=== PATIENT | female | born 1955 | race Caucasian/White ===

== ENCOUNTER → 2020-03-03 14:07 | Outpatient (BNVA) | payer OTHER, SELFPAY | PROVIDERS: PCP Internal Medicine; Referring Provider Internal Medicine; Visit Provider Internal Medicine | DX: I26.99 Other pulmonary embolism without acute cor pulmonale (principal); I82.502 Chronic embolism and thrombosis of unspecified deep veins of left lower extremity; Z51.81 Encounter for therapeutic drug level monitoring; Z79.01 Long term (current) use of anticoagulants | CPT/HCPCS: 93793 ==

== ENCOUNTER → 2020-03-10 12:14 | Outpatient (BNVA) | payer OTHER, SELFPAY | PROVIDERS: PCP Internal Medicine; Visit Provider Internal Medicine | DX: I26.99 Other pulmonary embolism without acute cor pulmonale (principal); I82.502 Chronic embolism and thrombosis of unspecified deep veins of left lower extremity; Z51.81 Encounter for therapeutic drug level monitoring; Z79.01 Long term (current) use of anticoagulants | CPT/HCPCS: Q3014 ==

== ENCOUNTER → 2020-04-07 16:51 | Outpatient (BNVA) | payer OTHER, SELFPAY | PROVIDERS: PCP Internal Medicine; Visit Provider Internal Medicine | DX: I26.99 Other pulmonary embolism without acute cor pulmonale (principal); I82.502 Chronic embolism and thrombosis of unspecified deep veins of left lower extremity; Z51.81 Encounter for therapeutic drug level monitoring; Z79.01 Long term (current) use of anticoagulants | CPT/HCPCS: Q3014 ==

== ENCOUNTER → 2020-04-14 15:29 | Outpatient (BNVA) | payer OTHER, SELFPAY | PROVIDERS: PCP Internal Medicine; Visit Provider Internal Medicine | DX: I26.99 Other pulmonary embolism without acute cor pulmonale (principal); I82.502 Chronic embolism and thrombosis of unspecified deep veins of left lower extremity; Z51.81 Encounter for therapeutic drug level monitoring; Z79.01 Long term (current) use of anticoagulants | CPT/HCPCS: 85610; 99211 ==

== ENCOUNTER → 2020-04-21 14:12 | Outpatient (BNVA) | payer OTHER, SELFPAY | PROVIDERS: PCP Internal Medicine; Visit Provider Internal Medicine | DX: Z76.89 Persons encountering health services in other specified circumstances (principal) ==

== ENCOUNTER → 2020-05-02 14:48 | Outpatient (BNVA) | payer OTHER, SELFPAY | PROVIDERS: PCP Internal Medicine; Visit Provider Internal Medicine | DX: Z76.89 Persons encountering health services in other specified circumstances (principal) ==

== ENCOUNTER 2020-05-03 10:12 | Outpatient (REF) | payer OTHER, SELFPAY ==
[2020-05-03 11:22] LABS: Cholesterol 196 mg/dL; HDL Cholesterol 100 mg/dL; LDL Cholesterol Calculated 77 mg/dl; Triglycerides 97 mg/dL
[2020-05-03 14:34] LABS: Alanine Aminotransferase 13 U/L (0-31); Alkaline Phosphatase 100 U/L (39-117); Anion Gap 13 (12-20); Aspartate Amino Transferase 20 U/L (5-31); Bilirubin Total 0.5 mg/dL (0.0-1.0); Blood Urea Nitrogen 9 mg/dL (9-16); Carbon Dioxide 30 mmol/L (22-29); Chloride 106 mmol/L (96-108); Estimated Glomerular Filt Rate > 60; Glucose Fasting 91 mg/dL (60-99); Potassium 5.6 mmol/l (3.3-5.1); Sodium 143 mmol/L (135-145); Total Protein 6.8 g/dL (6.5-8.0)
[2020-05-03 14:54] LABS: TSH reflex Free T4 1.61 mIU/mL (0.32-4.0)
== END 2020-05-03 10:13 | disposition home or self-care (01) ==
LOC: HO.LAB 10:12
PROVIDERS: PCP Internal Medicine; Visit Provider Internal Medicine
DX: E78.2 Mixed hyperlipidemia (principal); E66.9 Obesity, unspecified; I35.0 Nonrheumatic aortic (valve) stenosis; I50.9 Heart failure, unspecified; Z86.73 Personal history of transient ischemic attack (TIA), and cerebral infarction without residual deficits
CPT/HCPCS: 80053; 80061; 84443

== ENCOUNTER → 2020-05-05 14:47 | Outpatient (BNVA) | payer OTHER, SELFPAY | PROVIDERS: PCP Internal Medicine; Visit Provider Internal Medicine | DX: Z76.89 Persons encountering health services in other specified circumstances (principal) ==

== ENCOUNTER → 2020-05-12 13:52 | Outpatient (BNVA) | payer OTHER, SELFPAY | PROVIDERS: PCP Internal Medicine; Visit Provider Internal Medicine | DX: I48.20 Chronic atrial fibrillation, unspecified (principal); Z51.81 Encounter for therapeutic drug level monitoring; Z79.01 Long term (current) use of anticoagulants | CPT/HCPCS: 99211 ==

== ENCOUNTER → 2020-05-19 13:37 | Outpatient (BNVA) | payer OTHER, SELFPAY | PROVIDERS: PCP Internal Medicine; Visit Provider Internal Medicine | DX: I26.99 Other pulmonary embolism without acute cor pulmonale (principal); I82.502 Chronic embolism and thrombosis of unspecified deep veins of left lower extremity; Z51.81 Encounter for therapeutic drug level monitoring; Z79.01 Long term (current) use of anticoagulants | CPT/HCPCS: 99211 ==

== ENCOUNTER → 2020-05-26 11:38 | Outpatient (BNVA) | payer OTHER, SELFPAY | PROVIDERS: PCP Internal Medicine; Visit Provider Internal Medicine | DX: Z76.89 Persons encountering health services in other specified circumstances (principal) ==

== ENCOUNTER → 2020-05-31 14:33 | Outpatient (BNVA) | payer OTHER, SELFPAY | PROVIDERS: PCP Internal Medicine; Visit Provider Internal Medicine | DX: Z95.3 Presence of xenogenic heart valve (principal); D68.2 Hereditary deficiency of other clotting factors; I05.9 Rheumatic mitral valve disease, unspecified; E66.9 Obesity, unspecified; Z68.36 Body mass index [BMI] 36.0-36.9, adult; F17.200 Nicotine dependence, unspecified, uncomplicated; Z86.73 Personal history of transient ischemic attack (TIA), and cerebral infarction without residual deficits; Z79.01 Long term (current) use of anticoagulants | CPT/HCPCS: 93005 ==

== ENCOUNTER → 2020-06-02 15:03 | Outpatient (BNVA) | payer OTHER, SELFPAY | PROVIDERS: PCP Internal Medicine; Visit Provider Internal Medicine | DX: Z76.89 Persons encountering health services in other specified circumstances (principal) ==

== ENCOUNTER → 2020-06-15 15:28 | Outpatient (BNVA) | payer OTHER, SELFPAY | PROVIDERS: PCP Internal Medicine; Visit Provider Internal Medicine | DX: Z76.89 Persons encountering health services in other specified circumstances (principal) ==

== ENCOUNTER → 2020-06-23 11:34 | Outpatient (BNVA) | payer OTHER, SELFPAY | PROVIDERS: PCP Internal Medicine; Visit Provider Internal Medicine ==

== ENCOUNTER → 2020-06-30 10:38 | Outpatient (BNVA) | payer OTHER, SELFPAY | PROVIDERS: PCP Internal Medicine; Visit Provider Internal Medicine ==

== ENCOUNTER → 2020-07-07 12:02 | Outpatient (BNVA) | payer OTHER, SELFPAY | PROVIDERS: PCP Internal Medicine; Visit Provider Internal Medicine ==

== ENCOUNTER → 2020-07-14 14:45 | Outpatient (BNVA) | payer OTHER, SELFPAY | PROVIDERS: PCP Internal Medicine; Visit Provider Internal Medicine ==

== ENCOUNTER → 2020-07-21 12:13 | Outpatient (BNVA) | payer OTHER, SELFPAY | PROVIDERS: PCP Internal Medicine; Visit Provider Internal Medicine ==

== ENCOUNTER → 2020-07-28 13:43 | Outpatient (BNVA) | payer OTHER, SELFPAY | PROVIDERS: PCP Internal Medicine; Visit Provider Internal Medicine ==

== ENCOUNTER → 2020-08-04 13:36 | Outpatient (BNVA) | payer OTHER, SELFPAY | PROVIDERS: PCP Internal Medicine; Visit Provider Internal Medicine ==

== ENCOUNTER → 2020-08-11 10:50 | Outpatient (BNVA) | payer OTHER, SELFPAY | PROVIDERS: PCP Internal Medicine; Visit Provider Internal Medicine | DX: Z79.01 Long term (current) use of anticoagulants (principal) ==

== ENCOUNTER → 2020-08-25 13:19 | Outpatient (BNVA) | payer OTHER, SELFPAY | PROVIDERS: PCP Internal Medicine; Visit Provider Internal Medicine | DX: I26.99 Other pulmonary embolism without acute cor pulmonale (principal); I82.502 Chronic embolism and thrombosis of unspecified deep veins of left lower extremity; Z51.81 Encounter for therapeutic drug level monitoring; Z79.01 Long term (current) use of anticoagulants | CPT/HCPCS: 99211 ==

== ENCOUNTER → 2020-08-31 10:56 | Outpatient (BNVA) | payer OTHER, SELFPAY | PROVIDERS: PCP Internal Medicine; Visit Provider Internal Medicine ==

== ENCOUNTER → 2020-09-01 15:14 | Outpatient (BNVA) | payer OTHER, SELFPAY | PROVIDERS: PCP Internal Medicine; Visit Provider Internal Medicine | DX: I26.99 Other pulmonary embolism without acute cor pulmonale (principal); I82.502 Chronic embolism and thrombosis of unspecified deep veins of left lower extremity; Z51.81 Encounter for therapeutic drug level monitoring; Z79.01 Long term (current) use of anticoagulants | CPT/HCPCS: Q3014 ==

== ENCOUNTER → 2020-09-05 10:14 | Outpatient (REF) | payer OTHER, SELFPAY ==
--- NOTE | 2020-09-05 10:17 | CA_ITS ---
Transthoracic Echocardiogram Patient (Last, First, Middle): Yaneth Palmer A Gender: Female Date of : 1955 Age: 65 Procedure Date: 09/05/2020 Procedure Type: Transthoracic Echocardiogram Location: OP Height: 175.26 cm Weight: 112.04 kg BSA: 2.26 m2 Heart Rate: bpm BP: 138 / 68 mmHg [employer] Faculty Member: XIAO Moyer MD: Jan Wilson MD Relations Manager: Benito Goins MD Symptoms: Z95.3 - Presence of xenogenic heart valve Study Quality: Fair ECG Rhythm: Sinus Conclusions: - 1. Normal LV systolic function with mild LVH with elevated filling pressures 2. Moderately dilated left atrium 3. Presence of a bioprosthetic aortic valve with increased mean gradient of 18 mm of mercury suggestive of stenosis 4. Mitral calcification with mild mitral regurgitation 5. Normal RV systolic pressure 6. No gross pericardial effusion Findings Left Ventricle The left ventricle was not well visualized. There is mildly increased left ventricular wall thickness. The left ventricular systolic function is normal. The visually estimated ejection fraction is between 55-60%. Regional wall motion abnormalities can not be excluded due to suboptimal endocardial definition. Spectral Doppler is indicative of an impaired relaxation filling pattern. Elevated filling pressures. Right Ventricle Normal right ventricular cavity size and systolic function. Atria The left atrium is moderately dilated. Interatrial shunt cannot be excluded. The right atrium was not well visualized. Aortic Valve The aortic valve was not well visualized. There is mild calcification of the aortic valve. The peak aortic gradient is 34 mmHg.The mean gradient is 18 mmHg. There is mild aortic valve regurgitation. The valve leaflets are not well visualized. There is increased gradient across the bioprosthetic valve with a mean gradient of 18 mm Hg with calculated effective orifice area of 1.3 centimeters sq. The mean gradients calculated on this study are lower than prior study and could be underestimated Mitral Valve There is moderate anterior and severe posterior mitral leaflet thickening. There is moderate mitral annular calcification. There is mild mitral valve regurgitation. There is no mitral valve stenosis. Pulmonic Valve The pulmonic valve was not well visualized. Tricuspid Valve Likely normal tricuspid valve structure and function. There is mild tricuspid valve regurgitation. The right ventricular systolic pressure is normal. The right ventricular systolic pressure is 24 mmHg. Normal right atrial pressure. There is no evidence of pulmonary hypertension. Great Vessels All visible segments of the aorta are normal in size. The pulmonary artery was not well visualized. Venous The inferior vena cava is normal in size and collapses greater than 50% with inspiration. Pericardium/Pleural There is no evidence of pericardial effusion. Prior Study Comparison No significant change compared to prior study dated: 01/29/2020. Recommendations, Care & Conclusions Recommend contrast in the future to improve endocardial definition. Measurements 2D Linear Measurements IVSd: 1.34 0.6-0.9/0.6-1.0 cm LVIDd: 3.94 3.9-5.3/4.2-5.9 cm LVIDs: 2.58 2.0-3.6 cm LVPWd: 1.30 0.7-1.1 cm LV Mass: 232.82 67-162/88-224 g LVOT Diam: 1.97 3.0+(-)1.3 cm Mitral Valve MV VTI: 0.48 MV Pk Brent: 1.89 MV Mn Brent: 1.15 MV Pk Grad: 14.21 MV Mn Grad: 5.79 MV Pk E: 1.31 MV PK A: 1.55 MV Decel Time: 295.08 E/A: 0.84 E'Lateral: 0.07 E'Medial: 0.05 Decel [place]: 4.45 Aortic Valve AoV Pk Brent: 2.90 AoV Mn Brent: 2.02 AoV VTI: 0.61 AoV Pk Grad: 33.74 Aov Mn Grad: 17.99 LVOT LVOT Pk Brent: 1.27 LVOT Mn Brent: 0.99 LVOT VTI: 0.29 LVOT Pk Grad: 6.41 LVOT Mn Grad: 4.16 LVOT Diam: 1.97 LVOT Area: 3.04 Diastolic Function MV Pk E: 1.31 MV Pk A: 1.55 E/A: 0.84 E'Medial: 0.05 E' Laterial: 0.07 Tricuspid Valve TR Pk Brent: 2.27 TR Pk Grad: 20.58 RA Press: 3.00 RVSP: 24.00 Updated in Other Vendor System with Status of Final Benito Goins MD electronically signed on 09/05/2020 5:40:50 PM with status of Final
== END ==
LOC: HO.CARD 10:14
PROVIDERS: Visit Provider Internal Medicine
DX: Z95.3 Presence of xenogenic heart valve (principal)
CPT/HCPCS: 93306

== ENCOUNTER → 2020-09-09 11:21 | Outpatient (BNVA) | payer OTHER, SELFPAY | PROVIDERS: PCP Internal Medicine; Visit Provider Internal Medicine ==

== ENCOUNTER → 2020-09-15 15:02 | Outpatient (BNVA) | payer OTHER, SELFPAY | PROVIDERS: PCP Internal Medicine; Visit Provider Internal Medicine ==

== ENCOUNTER → 2020-09-22 11:44 | Outpatient (BNVA) | payer OTHER, SELFPAY | PROVIDERS: PCP Internal Medicine; Visit Provider Internal Medicine ==

== ENCOUNTER → 2020-09-29 14:52 | Outpatient (BNVA) | payer OTHER, SELFPAY | PROVIDERS: PCP Internal Medicine; Visit Provider Internal Medicine | DX: Z51.81 Encounter for therapeutic drug level monitoring (principal) | CPT/HCPCS: Q3014 ==

== ENCOUNTER → 2020-10-05 15:04 | Outpatient (BNVA) | payer OTHER, SELFPAY | PROVIDERS: PCP Internal Medicine; Visit Provider Internal Medicine ==

== ENCOUNTER → 2020-10-13 11:53 | Outpatient (BNVA) | payer OTHER, SELFPAY | PROVIDERS: PCP Internal Medicine; Visit Provider Internal Medicine ==

== ENCOUNTER → 2020-10-21 08:16 | Outpatient (BNVA) | payer OTHER, SELFPAY | PROVIDERS: PCP Internal Medicine; Visit Provider Internal Medicine ==

== ENCOUNTER → 2020-10-27 13:39 | Outpatient (BNVA) | payer OTHER, SELFPAY | PROVIDERS: PCP Internal Medicine; Visit Provider Internal Medicine ==

== ENCOUNTER → 2020-11-03 13:16 | Outpatient (BNVA) | payer OTHER, SELFPAY | PROVIDERS: PCP Internal Medicine; Visit Provider Internal Medicine ==

== ENCOUNTER → 2020-11-10 11:51 | Outpatient (BNVA) | payer OTHER, SELFPAY | PROVIDERS: PCP Internal Medicine; Visit Provider Internal Medicine ==

== ENCOUNTER → 2020-11-18 11:50 | Outpatient (BNVA) | payer OTHER, SELFPAY | PROVIDERS: PCP Internal Medicine; Visit Provider Internal Medicine ==

== ENCOUNTER → 2020-11-24 13:07 | Outpatient (BNVA) | payer OTHER, SELFPAY | PROVIDERS: PCP Internal Medicine; Visit Provider Internal Medicine ==

== ENCOUNTER → 2020-12-01 11:07 | Outpatient (BNVA) | payer OTHER, SELFPAY | PROVIDERS: PCP Internal Medicine; Visit Provider Internal Medicine | DX: I26.99 Other pulmonary embolism without acute cor pulmonale (principal); Z51.81 Encounter for therapeutic drug level monitoring; Z79.01 Long term (current) use of anticoagulants | CPT/HCPCS: Q3014 ==

== ENCOUNTER → 2020-12-08 16:24 | Outpatient (BNVA) | payer OTHER, SELFPAY | PROVIDERS: PCP Internal Medicine; Visit Provider Internal Medicine ==

== ENCOUNTER → 2020-12-15 08:52 | Outpatient (BNVA) | payer OTHER, SELFPAY | PROVIDERS: PCP Internal Medicine; Visit Provider Internal Medicine ==

== ENCOUNTER → 2020-12-23 14:12 | Outpatient (BNVA) | payer OTHER, SELFPAY | PROVIDERS: PCP Internal Medicine; Visit Provider Internal Medicine | DX: I26.99 Other pulmonary embolism without acute cor pulmonale (principal) | CPT/HCPCS: Q3014 ==

== ENCOUNTER → 2020-12-30 09:18 | Outpatient (BNVA) | payer OTHER, SELFPAY | PROVIDERS: PCP Internal Medicine; Visit Provider Internal Medicine ==

== ENCOUNTER → 2021-01-05 13:32 | Outpatient (BNVA) | payer OTHER, SELFPAY | PROVIDERS: PCP Internal Medicine; Visit Provider Internal Medicine | DX: I26.99 Other pulmonary embolism without acute cor pulmonale (principal); Z51.81 Encounter for therapeutic drug level monitoring; Z79.01 Long term (current) use of anticoagulants | CPT/HCPCS: Q3014 ==

== ENCOUNTER → 2021-01-12 10:03 | Outpatient (BNVA) | payer OTHER, SELFPAY | PROVIDERS: PCP Internal Medicine; Visit Provider Internal Medicine | DX: I26.99 Other pulmonary embolism without acute cor pulmonale (principal) | CPT/HCPCS: Q3014 ==

== ENCOUNTER → 2021-01-13 09:38 | Outpatient (BNVA) | payer OTHER, SELFPAY | PROVIDERS: PCP Internal Medicine; Visit Provider Internal Medicine | DX: I26.99 Other pulmonary embolism without acute cor pulmonale (principal); Z51.81 Encounter for therapeutic drug level monitoring; Z79.01 Long term (current) use of anticoagulants | CPT/HCPCS: 99211 ==

== ENCOUNTER → 2021-01-16 10:03 | Outpatient (BNVA) | payer OTHER, SELFPAY | PROVIDERS: PCP Internal Medicine; Visit Provider Internal Medicine | DX: I26.99 Other pulmonary embolism without acute cor pulmonale (principal) | CPT/HCPCS: Q3014 ==

== ENCOUNTER → 2021-01-26 11:39 | Outpatient (BNVA) | payer OTHER, SELFPAY | PROVIDERS: PCP Internal Medicine; Visit Provider Internal Medicine ==

== ENCOUNTER → 2021-02-02 13:33 | Outpatient (BNVA) | payer OTHER, SELFPAY | PROVIDERS: PCP Internal Medicine; Visit Provider Internal Medicine ==

== ENCOUNTER → 2021-02-09 11:49 | Outpatient (BNVA) | payer OTHER, SELFPAY | PROVIDERS: PCP Internal Medicine; Visit Provider Internal Medicine ==

== ENCOUNTER → 2021-02-17 08:54 | Outpatient (BNVA) | payer OTHER, SELFPAY | PROVIDERS: PCP Internal Medicine; Visit Provider Internal Medicine | DX: I26.99 Other pulmonary embolism without acute cor pulmonale (principal); Z51.81 Encounter for therapeutic drug level monitoring; Z79.01 Long term (current) use of anticoagulants | CPT/HCPCS: Q3014 ==

== ENCOUNTER → 2021-02-21 10:48 | Outpatient (BNVA) | payer OTHER, SELFPAY | PROVIDERS: PCP Internal Medicine; Referring Provider Internal Medicine; Visit Provider Internal Medicine ==

== ENCOUNTER → 2021-02-23 11:59 | Outpatient (BNVA) | payer OTHER, SELFPAY | PROVIDERS: PCP Internal Medicine; Visit Provider Internal Medicine | DX: I26.99 Other pulmonary embolism without acute cor pulmonale (principal); Z51.81 Encounter for therapeutic drug level monitoring; Z79.01 Long term (current) use of anticoagulants | CPT/HCPCS: Q3014 ==

== ENCOUNTER → 2021-03-02 14:16 | Outpatient (BNVA) | payer OTHER, SELFPAY | PROVIDERS: PCP Internal Medicine; Visit Provider Internal Medicine | DX: I26.99 Other pulmonary embolism without acute cor pulmonale (principal) | CPT/HCPCS: Q3014 ==

== ENCOUNTER → 2021-03-06 15:56 | Outpatient (BNVA) | payer OTHER, SELFPAY | PROVIDERS: PCP Internal Medicine; Visit Provider Internal Medicine | DX: I26.99 Other pulmonary embolism without acute cor pulmonale (principal) | CPT/HCPCS: Q3014 ==

== ENCOUNTER → 2021-03-09 12:04 | Outpatient (BNVA) | payer OTHER, SELFPAY | PROVIDERS: PCP Internal Medicine; Visit Provider Internal Medicine ==

== ENCOUNTER → 2021-03-16 12:00 | Outpatient (BNVA) | payer OTHER, SELFPAY | PROVIDERS: PCP Internal Medicine; Visit Provider Internal Medicine | DX: I26.99 Other pulmonary embolism without acute cor pulmonale (principal) | CPT/HCPCS: Q3014 ==

== ENCOUNTER → 2021-03-23 12:06 | Outpatient (BNVA) | payer OTHER, SELFPAY | PROVIDERS: PCP Internal Medicine; Visit Provider Internal Medicine ==

== ENCOUNTER → 2021-03-30 14:36 | Outpatient (BNVA) | payer OTHER, SELFPAY | PROVIDERS: PCP Internal Medicine; Visit Provider Internal Medicine | DX: I26.99 Other pulmonary embolism without acute cor pulmonale (principal); Z51.81 Encounter for therapeutic drug level monitoring; Z79.01 Long term (current) use of anticoagulants | CPT/HCPCS: Q3014 ==

== ENCOUNTER → 2021-04-07 12:06 | Outpatient (BNVA) | payer OTHER, SELFPAY | PROVIDERS: PCP Internal Medicine; Visit Provider Internal Medicine ==

== ENCOUNTER → 2021-04-13 13:53 | Outpatient (BNVA) | payer OTHER, SELFPAY | PROVIDERS: PCP Internal Medicine; Visit Provider Internal Medicine ==

== ENCOUNTER → 2021-04-21 15:06 | Outpatient (BNVA) | payer OTHER, SELFPAY | PROVIDERS: PCP Internal Medicine; Visit Provider Internal Medicine ==

== ENCOUNTER → 2021-04-25 14:28 | Outpatient (BNVA) | payer OTHER, SELFPAY | PROVIDERS: PCP Internal Medicine; Visit Provider Internal Medicine | DX: I26.99 Other pulmonary embolism without acute cor pulmonale (principal); Z51.81 Encounter for therapeutic drug level monitoring; Z79.01 Long term (current) use of anticoagulants | CPT/HCPCS: 85610; 99211 ==

== ENCOUNTER → 2021-05-04 15:03 | Outpatient (BNVA) | payer OTHER, SELFPAY | PROVIDERS: PCP Internal Medicine; Visit Provider Internal Medicine | DX: I26.99 Other pulmonary embolism without acute cor pulmonale (principal) | CPT/HCPCS: Q3014 ==

== ENCOUNTER → 2021-05-11 15:46 | Outpatient (BNVA) | payer OTHER, SELFPAY | PROVIDERS: PCP Internal Medicine; Visit Provider Internal Medicine ==

== ENCOUNTER → 2021-05-18 14:14 | Outpatient (BNVA) | payer OTHER, SELFPAY | PROVIDERS: PCP Internal Medicine; Visit Provider Internal Medicine ==

== ENCOUNTER → 2021-05-25 11:22 | Outpatient (BNVA) | payer OTHER, SELFPAY | PROVIDERS: PCP Internal Medicine; Visit Provider Internal Medicine ==

== ENCOUNTER → 2021-06-05 13:57 | Outpatient (BNVA) | payer OTHER, SELFPAY | PROVIDERS: PCP Internal Medicine; Visit Provider Internal Medicine ==

== ENCOUNTER → 2021-06-15 12:15 | Outpatient (BNVA) | payer OTHER, SELFPAY | PROVIDERS: PCP Internal Medicine; Visit Provider Internal Medicine | DX: I26.99 Other pulmonary embolism without acute cor pulmonale (principal) | CPT/HCPCS: Q3014 ==

== ENCOUNTER → 2021-06-16 15:14 | Outpatient (BNVA) | payer OTHER, SELFPAY | PROVIDERS: PCP Internal Medicine; Visit Provider Internal Medicine | DX: I26.99 Other pulmonary embolism without acute cor pulmonale (principal); Z51.81 Encounter for therapeutic drug level monitoring; Z79.01 Long term (current) use of anticoagulants | CPT/HCPCS: Q3014 ==

== ENCOUNTER → 2021-06-22 12:11 | Outpatient (BNVA) | payer OTHER, SELFPAY | PROVIDERS: PCP Internal Medicine; Visit Provider Internal Medicine ==

== ENCOUNTER → 2021-06-29 13:43 | Outpatient (BNVA) | payer OTHER, SELFPAY | PROVIDERS: PCP Internal Medicine; Visit Provider Internal Medicine | DX: I26.99 Other pulmonary embolism without acute cor pulmonale (principal); Z51.81 Encounter for therapeutic drug level monitoring; Z79.01 Long term (current) use of anticoagulants | CPT/HCPCS: Q3014 ==

== ENCOUNTER → 2021-07-03 11:07 | Outpatient (BNVA) | payer OTHER, SELFPAY | PROVIDERS: PCP Internal Medicine; Visit Provider Internal Medicine ==

== ENCOUNTER → 2021-07-06 14:47 | Outpatient (BNVA) | payer OTHER, SELFPAY | PROVIDERS: PCP Internal Medicine; Visit Provider Internal Medicine | DX: I26.99 Other pulmonary embolism without acute cor pulmonale (principal); Z51.81 Encounter for therapeutic drug level monitoring; Z79.01 Long term (current) use of anticoagulants | CPT/HCPCS: Q3014 ==

== ENCOUNTER → 2021-07-13 15:10 | Outpatient (BNVA) | payer OTHER, SELFPAY | PROVIDERS: PCP Internal Medicine; Visit Provider Internal Medicine | DX: I26.99 Other pulmonary embolism without acute cor pulmonale (principal) | CPT/HCPCS: Q3014 ==

== ENCOUNTER → 2021-07-20 16:06 | Outpatient (BNVA) | payer OTHER, SELFPAY | PROVIDERS: PCP Internal Medicine; Visit Provider Internal Medicine | DX: I26.99 Other pulmonary embolism without acute cor pulmonale (principal); Z51.81 Encounter for therapeutic drug level monitoring; Z79.01 Long term (current) use of anticoagulants | CPT/HCPCS: Q3014 ==

== ENCOUNTER → 2021-07-27 12:57 | Outpatient (BNVA) | payer OTHER, SELFPAY | PROVIDERS: PCP Internal Medicine; Visit Provider Internal Medicine ==

== ENCOUNTER → 2021-08-03 12:56 | Outpatient (BNVA) | payer OTHER, SELFPAY | PROVIDERS: PCP Internal Medicine; Visit Provider Internal Medicine | DX: I26.99 Other pulmonary embolism without acute cor pulmonale (principal); Z51.81 Encounter for therapeutic drug level monitoring; Z79.01 Long term (current) use of anticoagulants | CPT/HCPCS: Q3014 ==

== ENCOUNTER → 2021-08-10 11:58 | Outpatient (BNVA) | payer OTHER, SELFPAY | PROVIDERS: PCP Internal Medicine; Visit Provider Internal Medicine | DX: I26.99 Other pulmonary embolism without acute cor pulmonale (principal); Z51.81 Encounter for therapeutic drug level monitoring; Z79.01 Long term (current) use of anticoagulants | CPT/HCPCS: Q3014 ==

== ENCOUNTER → 2021-08-18 16:04 | Outpatient (BNVA) | payer OTHER, SELFPAY | PROVIDERS: PCP Internal Medicine; Visit Provider Internal Medicine | DX: Z13.89 Encounter for screening for other disorder (principal) ==

== ENCOUNTER → 2021-08-25 10:06 | Outpatient (BNVA) | payer OTHER, SELFPAY | PROVIDERS: PCP Internal Medicine; Visit Provider Internal Medicine | DX: Z13.89 Encounter for screening for other disorder (principal) ==

== ENCOUNTER → 2021-08-31 15:04 | Outpatient (BNVA) | payer OTHER, SELFPAY | PROVIDERS: PCP Internal Medicine; Visit Provider Internal Medicine | DX: Z13.89 Encounter for screening for other disorder (principal) ==

== ENCOUNTER → 2021-09-07 14:42 | Outpatient (BNVA) | payer OTHER, SELFPAY | PROVIDERS: PCP Internal Medicine; Visit Provider Internal Medicine | DX: Z13.89 Encounter for screening for other disorder (principal) ==

== ENCOUNTER → 2021-09-14 13:53 | Outpatient (BNVA) | payer OTHER, SELFPAY | PROVIDERS: PCP Internal Medicine; Visit Provider Internal Medicine | DX: Z13.89 Encounter for screening for other disorder (principal) ==

== ENCOUNTER → 2021-09-21 11:42 | Outpatient (BNVA) | payer OTHER, SELFPAY | PROVIDERS: PCP Internal Medicine; Visit Provider Internal Medicine | DX: Z13.89 Encounter for screening for other disorder (principal) ==

== ENCOUNTER → 2021-09-28 14:22 | Outpatient (BNVA) | payer OTHER, SELFPAY | PROVIDERS: PCP Internal Medicine; Visit Provider Internal Medicine | DX: I26.99 Other pulmonary embolism without acute cor pulmonale (principal); Z51.81 Encounter for therapeutic drug level monitoring; Z79.01 Long term (current) use of anticoagulants | CPT/HCPCS: Q3014 ==

== ENCOUNTER → 2021-10-05 13:58 | Outpatient (BNVA) | payer OTHER, SELFPAY | PROVIDERS: PCP Internal Medicine; Visit Provider Internal Medicine | DX: I26.99 Other pulmonary embolism without acute cor pulmonale (principal); Z79.01 Long term (current) use of anticoagulants; Z51.81 Encounter for therapeutic drug level monitoring | CPT/HCPCS: Q3014 ==

== ENCOUNTER → 2021-10-09 14:51 | Outpatient (BNVA) | payer OTHER, SELFPAY | PROVIDERS: PCP Internal Medicine; Visit Provider Internal Medicine | DX: I26.99 Other pulmonary embolism without acute cor pulmonale (principal); Z79.01 Long term (current) use of anticoagulants; Z51.81 Encounter for therapeutic drug level monitoring | CPT/HCPCS: Q3014 ==

== ENCOUNTER → 2021-10-19 13:51 | Outpatient (BNVA) | payer OTHER, SELFPAY | PROVIDERS: PCP Internal Medicine; Visit Provider Internal Medicine | DX: I26.99 Other pulmonary embolism without acute cor pulmonale (principal); Z79.01 Long term (current) use of anticoagulants; Z51.81 Encounter for therapeutic drug level monitoring | CPT/HCPCS: Q3014 ==

== ENCOUNTER → 2021-10-26 13:30 | Outpatient (BNVA) | payer OTHER, SELFPAY | PROVIDERS: PCP Internal Medicine; Visit Provider Internal Medicine | DX: Z79.01 Long term (current) use of anticoagulants (principal); I26.99 Other pulmonary embolism without acute cor pulmonale; Z51.81 Encounter for therapeutic drug level monitoring | CPT/HCPCS: Q3014 ==

== ENCOUNTER → 2021-11-02 14:50 | Outpatient (BNVA) | payer OTHER, SELFPAY | PROVIDERS: PCP Internal Medicine; Visit Provider Internal Medicine | DX: Z13.89 Encounter for screening for other disorder (principal) ==

== ENCOUNTER → 2021-12-07 16:38 | Outpatient (BNVA) | payer OTHER, SELFPAY | PROVIDERS: PCP Internal Medicine; Visit Provider Internal Medicine | DX: I26.99 Other pulmonary embolism without acute cor pulmonale (principal); Z51.81 Encounter for therapeutic drug level monitoring; Z79.01 Long term (current) use of anticoagulants | CPT/HCPCS: Q3014 ==

== ENCOUNTER → 2022-01-25 12:07 | Outpatient (BNVA) | payer OTHER, SELFPAY | PROVIDERS: PCP Internal Medicine; Visit Provider Internal Medicine | DX: Z79.01 Long term (current) use of anticoagulants (principal); I26.99 Other pulmonary embolism without acute cor pulmonale; Z51.81 Encounter for therapeutic drug level monitoring | CPT/HCPCS: Q3014 ==

== ENCOUNTER → 2022-02-12 14:54 | Outpatient (REF) | payer OTHER, SELFPAY ==
--- NOTE | 2022-02-12 14:56 | CA_ITS ---
Transthoracic Echocardiogram Patient (Last, First, Middle): Yaneth Palmer A Gender: Female Date of : 1955 Age: 66 Procedure Date: 02/12/2022 Procedure Type: Transthoracic Echocardiogram Location: OP Height: 177.8 cm Weight: 124.74 kg BSA: 2.39 m2 Heart Rate: 92 bpm BP: 142 / 70 mmHg Check Writer: SB Referring MD: Jan Wilson MD Perianesthesia Rn: Benito Goins MD Symptoms: Z95.3 - Presence of xenogenic heart valve Study Quality: Technically Difficult/BSA/Contrast ECG Rhythm: Sinus Conclusions: - 1. Normal LV systolic function with impaired relaxation filling pattern next 2. Moderately dilated left atrium 3. Bioprosthetic aortic valve present with mean gradient of 11 mmHg which could be underestimated but on this study appears to be within normal limits 4. Severe mitral and calcification with possible calcific mitral stenosis 5. No gross pericardial effusion Findings Procedure Information Contrast agent, definity, is being given per protocol without apparent complications. Left Ventricle Normal left ventricular size, thickness, and systolic function. Spectral Doppler is indicative of an impaired relaxation filling pattern. Right Ventricle The right ventricle was not well visualized. Normal right ventricular cavity size. Atria The left atrium is moderately dilated. Interatrial shunt cannot be excluded. The right atrium was not well visualized. Aortic Valve A bioprosthetic aortic valve is present. The prosthetic aortic valve appears to be functioning normally. The aortic valve was not well visualized. The mean gradient is 11 mmHg. There is no aortic valve regurgitation. Mitral Valve There is moderate anterior and severe posterior mitral leaflet thickening. There is severe mitral annular calcification. There is trace mitral valve regurgitation. mean gradient across mitral valve is elevated and mitral stenosis cannot be entirely ruled out on this study Pulmonic Valve The pulmonic valve was not well visualized. Tricuspid Valve The tricuspid valve was not well visualized. Tricuspid regurgitation envelope is inadequate for calculation of right ventricular systolic pressure. Normal right atrial pressure. Great Vessels The aorta was not well visualized. The pulmonary artery was not well visualized. Venous The inferior vena cava is normal in size and collapses greater than 50% with inspiration. Pericardium/Pleural There is no evidence of pericardial effusion. Prior Study Comparison Changes noted compared to prior study dated: 09/05/2020. LVH is not present Measurements 2D Linear Measurements IVSd: 0.96 0.6-0.9/0.6-1.0 cm LVIDd: 5.53 3.9-5.3/4.2-5.9 cm LVIDd Index: 2.31 2.4-3.2/2.2-3.1 cm/m2 LVIDs: 3.92 2.0-3.6 cm LVPWd: 0.80 0.7-1.1 cm LA Diam: 3.90 2.7-3.8/3.0-4.0 cm LAIDs Index: 1.63 1.5-2.3 cm/m2 LV Mass: 226.71 67-162/88-224 g LV Mass Index: 94.86 43-95/49-115 g/m2 LVOT Diam: 2.60 3.0+(-)1.3 cm 2D Systolic Function EF 4C: 61.50 >55% EF 2C: 55.80 >55% EF BiP: 59.20 >55% Mitral Valve MV VTI: 0.41 MV Pk Brent: 1.78 MV Mn Brent: 1.36 MV Pk Grad: 13.00 MV Mn Grad: 8.00 MV Pk E: 1.75 MV PK A: 1.87 MV Decel Time: 219.00 E/A: 0.90 E'Lateral: 5.55 E'Medial: 5.22 E/E' Med: 33.50 E/E' Lat: 31.50 PHT: 64.00 MVA PHT: 3.44 MVA Continuity: 2.57 Decel Garrett: 7.97 Aortic Valve AoV Pk Brent: 2.21 AoV Mn Brent: 1.53 AoV VTI: 0.42 AoV Pk Grad: 20.00 Aov Mn Grad: 11.00 JAMIE Cont.VTI: 2.53 LVOT LVOT Pk Brent: 0.95 LVOT Mn Brent: 0.64 LVOT VTI: 0.20 LVOT Pk Grad: 4.00 LVOT Mn Grad: 2.00 LVOT Diam: 2.60 LVOT Area: 5.31 Diastolic Function MV Pk E: 1.75 MV Pk A: 1.87 E/A: 0.90 E'Medial: 5.22 E/E' Med: 33.50 E' Laterial: 5.55 E/E' Lat: 31.50 Right Ventricle TAPSE (mm): 29.00 TVS' Brent: 17.60 Tricuspid Valve RA Press: 3.00 Pulmonary Veins Pulm Vein S/D 1.80 Pulmonary Valve PV Pk Brent: 1.02 Peak PV Grad: 4.00 Updated in Other Vendor System with Status of Final Benito Goins MD electronically signed on 02/13/2022 8:55:16 AM with status of Final
== END ==
LOC: HO.CARD 14:54
PROVIDERS: PCP Internal Medicine; Visit Provider Internal Medicine
DX: Z95.3 Presence of xenogenic heart valve (principal)
CPT/HCPCS: 93306; Q9957

== ENCOUNTER → 2022-02-22 15:12 | Outpatient (BNVA) | payer OTHER, SELFPAY | PROVIDERS: PCP Internal Medicine; Visit Provider Internal Medicine | DX: I26.99 Other pulmonary embolism without acute cor pulmonale (principal); Z51.81 Encounter for therapeutic drug level monitoring; Z79.01 Long term (current) use of anticoagulants | CPT/HCPCS: Q3014 ==

== ENCOUNTER 2022-03-02 07:55 | Outpatient (REF) | payer OTHER, SELFPAY ==
[2022-03-02 08:06] LABS: MANUAL DIFF FLAG NO
[2022-03-02 08:34] LABS: Basophils Absolute Auto 0.1 X10*3/uL (0.0-0.2); Eosinophils Absolute Auto 0.2 X10*3/uL (0.0-0.4); Eosinophils Percent Auto 3.5 % (0-4); Hemoglobin 13.1 g/dl (12.0-16.0); Imm Gran Abs Auto 0.01 X10*3/uL (0.00-0.03); Imm Gran Pct Auto 0.2 % (0.0-0.4); Lymphocytes Absolute Auto 2.3 X10*3/uL (1.2-4.9); Lymphocytes Percent Auto 40.1 % (20-40); Mean Corpuscular Hemoglobin 29.9 pg (27.0-33.0); Mean Corpuscular Volume 93.6 fL (80.0-98.0); Mean Platelet Volume 9.5 fL (9.4-12.3); Monocytes Absolute Auto 0.6 X10*3/uL (0.1-1.2); Monocytes Percent Auto 10.3 % (2-11); Neutrophils Absolute Auto 2.6 x10*3/uL (2.0-8.3); Neutrophils Percent Auto 44.9 % (45-73); Platelet Count 285 X10*3/uL (160-400); Red Blood Count 4.38 X10*6/uL (4.20-5.50); Red Cell Distribution Width 14.6 % (11.0-16.0); White Blood Count 5.7 X10*3/uL (4.8-10.8)
[2022-03-02 08:55] LABS: Alanine Aminotransferase 14 U/L (0-31); Alkaline Phosphatase 93 U/L (39-117); Anion Gap 13 (12-20); Aspartate Amino Transferase 21 U/L (5-31); Bilirubin Total 0.3 mg/dL (0.0-1.0); Blood Urea Nitrogen 8 mg/dL (9-16); Calcium 9.1 mg/dL (8.4-10.2); Carbon Dioxide 28 mmol/L (22-29); Chloride 104 mmol/L (96-108); Cholesterol 198 mg/dL; Estimated Glomerular Filt Rate > 60; Glucose Fasting 95 mg/dL (60-99); HDL Cholesterol 103 mg/dL; LDL Cholesterol Calculated 78 mg/dl; Sodium 141 mmol/L (135-145); Total Protein 6.9 g/dL (6.5-8.0); Triglycerides 86 mg/dL
[2022-03-02 09:07] LABS: TSH reflex Free T4 1.42 uIU/mL (0.32-4.0); Vitamin D 25-OH Total 19.9 ng/mL (>30)
[2022-03-02 17:52] LABS: Appearance Urine Clear; Color Urine Yellow; Glucose Urine UA Negative (Negative); Leukocyte Esterase Urine Trace (Negative); Nitrite Urine Negative (Negative); Specific Gravity - Urine 1.015 (1.005-1.025); UMIC TRIGGER UACC YES; Urine Blood Negative (Negative); Urine Ketones Negative (Negative); Urine Protein Negative (Neg-Trace)
[2022-03-02 17:57] LABS: Bacteria Urine Trace (None Seen); Hyaline Casts Urine 0-2 /LPF (0-2); RBC Urine 0-2 /HPF (0-2); WBC Urine 0-5 /HPF (0-5)
== END 2022-03-02 07:56 | disposition home or self-care (01) ==
LOC: HO.LAB 07:55
PROVIDERS: PCP Internal Medicine; Visit Provider Internal Medicine
DX: I10 Essential (primary) hypertension (principal); E78.00 Pure hypercholesterolemia, unspecified; E55.9 Vitamin D deficiency, unspecified
CPT/HCPCS: 36415; 80053; 80061; 81001; 82306; 84443; 85025

== ENCOUNTER → 2022-03-22 13:35 | Outpatient (BNVA) | payer OTHER, SELFPAY | PROVIDERS: PCP Internal Medicine; Visit Provider Internal Medicine | DX: I26.99 Other pulmonary embolism without acute cor pulmonale (principal); Z79.01 Long term (current) use of anticoagulants; Z51.81 Encounter for therapeutic drug level monitoring | CPT/HCPCS: Q3014 ==

== ENCOUNTER 2022-03-23 | Outpatient (REF) | payer OTHER, SELFPAY ==
--- NOTE | ~2022-03-23 | XR_ITS ---
EXAMINATION: XR BILATERAL KNEE AP STANDING. LATERAL AND SUNRISE VIEWS OF THE RIGHT KNEE. CLINICAL INFORMATION: Pain in unspecified knee COMPARISON: None TECHNIQUE: AP bilateral standing view of both knees, lateral view of the right knee, and sunrise view of the right knee were obtained. FINDINGS: Right knee: Mild lateral compartment joint space narrowing. Medial compartment joint space maintained. Moderate suprapatellar joint effusion. Mild patellar and trochlear osteophytosis. Left knee: Mild medial compartment joint space narrowing of the left knee. Lateral compartment joint space is maintained. No fracture or dislocation seen. XR/XR knee RT 2V IMPRESSION: Moderate patellofemoral, mild lateral compartment osteoarthritis of the right knee. Mild medial compartment joint space narrowing of the left knee.
--- NOTE | ~2022-03-23 | XR_ITS ---
EXAMINATION: XR BILATERAL KNEE AP STANDING. LATERAL AND SUNRISE VIEWS OF THE RIGHT KNEE. CLINICAL INFORMATION: Pain in unspecified knee COMPARISON: None TECHNIQUE: AP bilateral standing view of both knees, lateral view of the right knee, and sunrise view of the right knee were obtained. FINDINGS: Right knee: Mild lateral compartment joint space narrowing. Medial compartment joint space maintained. Moderate suprapatellar joint effusion. Mild patellar and trochlear osteophytosis. Left knee: Mild medial compartment joint space narrowing of the left knee. Lateral compartment joint space is maintained. No fracture or dislocation seen. XR/XR knee standing BI IMPRESSION: Moderate patellofemoral, mild lateral compartment osteoarthritis of the right knee. Mild medial compartment joint space narrowing of the left knee.
== END 2022-03-23 00:01 | disposition home or self-care (01) ==
LOC: HO.HOSX
PROVIDERS: Visit Provider Physician Assistant
DX: M25.561 Pain in right knee (principal); M25.562 Pain in left knee
CPT/HCPCS: 73560; 73565

== ENCOUNTER → 2022-04-19 15:54 | Outpatient (BNVA) | payer OTHER, SELFPAY | PROVIDERS: PCP Internal Medicine; Visit Provider Internal Medicine | DX: I26.99 Other pulmonary embolism without acute cor pulmonale (principal); Z79.01 Long term (current) use of anticoagulants; Z51.81 Encounter for therapeutic drug level monitoring | CPT/HCPCS: 85610; 99211 ==

== ENCOUNTER → 2022-05-24 11:35 | Outpatient (BNVA) | payer OTHER, SELFPAY | PROVIDERS: PCP Internal Medicine; Visit Provider Internal Medicine | DX: Z79.01 Long term (current) use of anticoagulants (principal) ==

== ENCOUNTER → 2022-05-31 14:02 | Outpatient (BNVA) | payer OTHER, SELFPAY | PROVIDERS: PCP Internal Medicine; Visit Provider Internal Medicine | DX: Z13.89 Encounter for screening for other disorder (principal) ==

== ENCOUNTER → 2022-06-01 14:29 | Outpatient (BNVA) | payer OTHER, SELFPAY | PROVIDERS: PCP Internal Medicine; Visit Provider Internal Medicine | DX: Z13.89 Encounter for screening for other disorder (principal) ==

== ENCOUNTER → 2022-06-07 11:37 | Outpatient (BNVA) | payer OTHER, SELFPAY | PROVIDERS: PCP Internal Medicine; Visit Provider Internal Medicine | DX: Z79.01 Long term (current) use of anticoagulants (principal) ==

== ENCOUNTER → 2022-06-14 13:43 | Outpatient (BNVA) | payer OTHER, SELFPAY | PROVIDERS: PCP Internal Medicine; Visit Provider Internal Medicine | DX: Z79.01 Long term (current) use of anticoagulants (principal) ==

== ENCOUNTER → 2022-06-21 15:22 | Outpatient (BNVA) | payer OTHER, SELFPAY | PROVIDERS: PCP Internal Medicine; Visit Provider Internal Medicine | DX: Z79.01 Long term (current) use of anticoagulants (principal) ==

== ENCOUNTER → 2022-06-29 15:58 | Outpatient (BNVA) | payer OTHER, SELFPAY | PROVIDERS: PCP Internal Medicine; Visit Provider Internal Medicine | DX: Z79.01 Long term (current) use of anticoagulants (principal) ==

== ENCOUNTER → 2022-07-05 11:38 | Outpatient (BNVA) | payer OTHER, SELFPAY | PROVIDERS: PCP Internal Medicine; Visit Provider Internal Medicine | DX: Z79.01 Long term (current) use of anticoagulants (principal) ==

== ENCOUNTER → 2022-07-12 11:39 | Outpatient (BNVA) | payer OTHER, SELFPAY | PROVIDERS: PCP Internal Medicine; Visit Provider Internal Medicine | DX: Z79.01 Long term (current) use of anticoagulants (principal) ==

== ENCOUNTER → 2022-07-19 13:20 | Outpatient (BNVA) | payer OTHER, SELFPAY | PROVIDERS: PCP Internal Medicine; Visit Provider Internal Medicine | DX: Z79.01 Long term (current) use of anticoagulants (principal) ==

== ENCOUNTER → 2022-07-26 10:50 | Outpatient (BNVA) | payer OTHER, SELFPAY | PROVIDERS: PCP Internal Medicine; Visit Provider Internal Medicine | DX: Z79.01 Long term (current) use of anticoagulants (principal) ==

== ENCOUNTER → 2022-08-02 11:48 | Outpatient (BNVA) | payer OTHER, SELFPAY | PROVIDERS: PCP Internal Medicine; Visit Provider Internal Medicine | DX: Z13.89 Encounter for screening for other disorder (principal) ==

== ENCOUNTER → 2022-08-09 11:26 | Outpatient (BNVA) | payer OTHER, SELFPAY | PROVIDERS: PCP Internal Medicine; Visit Provider Internal Medicine | DX: Z13.89 Encounter for screening for other disorder (principal) ==

== ENCOUNTER → 2022-08-16 15:06 | Outpatient (BNVA) | payer OTHER, SELFPAY | PROVIDERS: PCP Internal Medicine; Visit Provider Internal Medicine | DX: Z13.89 Encounter for screening for other disorder (principal) ==

== ENCOUNTER → 2022-08-23 10:28 | Outpatient (BNVA) | payer OTHER, SELFPAY | PROVIDERS: PCP Internal Medicine; Visit Provider Internal Medicine | DX: Z13.89 Encounter for screening for other disorder (principal) ==

== ENCOUNTER → 2022-08-30 15:49 | Outpatient (BNVA) | payer OTHER, SELFPAY | PROVIDERS: PCP Internal Medicine; Visit Provider Internal Medicine | DX: Z79.01 Long term (current) use of anticoagulants (principal) ==

== ENCOUNTER → 2022-09-06 14:54 | Outpatient (BNVA) | payer OTHER, SELFPAY | PROVIDERS: PCP Internal Medicine; Visit Provider Internal Medicine | DX: Z79.01 Long term (current) use of anticoagulants (principal) ==

== ENCOUNTER → 2022-09-13 10:21 | Outpatient (BNVA) | payer OTHER, SELFPAY | PROVIDERS: PCP Internal Medicine; Visit Provider Internal Medicine | DX: Z79.01 Long term (current) use of anticoagulants (principal) ==

== ENCOUNTER → 2022-09-20 11:45 | Outpatient (BNVA) | payer OTHER, SELFPAY | PROVIDERS: PCP Internal Medicine; Visit Provider Internal Medicine | DX: Z79.01 Long term (current) use of anticoagulants (principal) ==

== ENCOUNTER → 2022-09-27 09:43 | Outpatient (BNVA) | payer OTHER, SELFPAY | PROVIDERS: PCP Internal Medicine; Visit Provider Internal Medicine | DX: Z79.01 Long term (current) use of anticoagulants (principal) ==

== ENCOUNTER → 2022-10-04 11:27 | Outpatient (BNVA) | payer OTHER, SELFPAY | PROVIDERS: PCP Internal Medicine; Visit Provider Internal Medicine | DX: Z79.01 Long term (current) use of anticoagulants (principal) ==

== ENCOUNTER → 2022-10-11 13:18 | Outpatient (BNVA) | payer OTHER, SELFPAY | PROVIDERS: PCP Internal Medicine; Visit Provider Internal Medicine | DX: Z79.01 Long term (current) use of anticoagulants (principal) ==

== ENCOUNTER → 2022-10-18 11:09 | Outpatient (BNVA) | payer OTHER, SELFPAY | PROVIDERS: PCP Internal Medicine; Visit Provider Internal Medicine | DX: Z79.01 Long term (current) use of anticoagulants (principal) ==

== ENCOUNTER → 2022-10-25 13:43 | Outpatient (BNVA) | payer OTHER, SELFPAY | PROVIDERS: PCP Internal Medicine; Visit Provider Internal Medicine | DX: Z79.01 Long term (current) use of anticoagulants (principal) ==

== ENCOUNTER → 2022-11-01 14:24 | Outpatient (BNVA) | payer OTHER, SELFPAY | PROVIDERS: PCP Internal Medicine; Visit Provider Internal Medicine | DX: Z79.01 Long term (current) use of anticoagulants (principal) ==

== ENCOUNTER → 2022-11-08 10:00 | Outpatient (BNVA) | payer OTHER, SELFPAY | PROVIDERS: PCP Internal Medicine; Visit Provider Internal Medicine | DX: Z79.01 Long term (current) use of anticoagulants (principal) ==

== ENCOUNTER → 2022-11-15 12:06 | Outpatient (BNVA) | payer OTHER, SELFPAY | PROVIDERS: PCP Internal Medicine; Visit Provider Internal Medicine | DX: Z79.01 Long term (current) use of anticoagulants (principal) ==

== ENCOUNTER → 2022-11-22 10:34 | Outpatient (BNVA) | payer OTHER, MEDICARE, SELFPAY | PROVIDERS: PCP Internal Medicine; Visit Provider Physician Assistant | DX: I26.99 Other pulmonary embolism without acute cor pulmonale (principal); Z51.81 Encounter for therapeutic drug level monitoring; Z79.01 Long term (current) use of anticoagulants | CPT/HCPCS: 85610; 99211 ==

== ENCOUNTER → 2022-11-27 14:01 | Outpatient (BNVA) | payer OTHER, MEDICARE, SELFPAY | PROVIDERS: PCP Internal Medicine; Visit Provider Internal Medicine | DX: I26.99 Other pulmonary embolism without acute cor pulmonale (principal); Z51.81 Encounter for therapeutic drug level monitoring; Z79.01 Long term (current) use of anticoagulants | CPT/HCPCS: 85610; 99211 ==

== ENCOUNTER 2022-11-29 09:16 | Outpatient (REF) | payer MEDICARE, OTHER, SELFPAY ==
--- NOTE | ~2022-11-29 | XR_ITS ---
EXAMINATION: XR SHOULDER, RIGHT CLINICAL INFORMATION: Pain. COMPARISON: None available. TECHNIQUE: AP external rotation, Grashey, scapular Y, and axillary views of the right shoulder. FINDINGS: There is bony demineralization. The glenohumeral joint is intact and shows moderate osteoarthritic change. The acromioclavicular and coracoclavicular intervals are normal. There is mild osteoarthritic change of the acromioclavicular joint. There is cortical irregularity of the greater tuberosity of the proximal right humerus. A small loose body is seen superiorly within the joint space. There is no right pneumothorax. XR/XR shoulder RT min 2V IMPRESSION: 1. There is moderate osteoarthritic change of the right glenohumeral joint, and mild osteoarthritic change is seen of the right acromioclavicular joint. 2. A loose body is seen. 3. Findings suggest right rotator cuff impingement.
== END 2022-11-29 09:17 | disposition home or self-care (01) ==
LOC: HO.HOSX 09:16
PROVIDERS: Visit Provider Physician Assistant
DX: M17.11 Unilateral primary osteoarthritis, right knee (principal); M19.011 Primary osteoarthritis, right shoulder
CPT/HCPCS: 20610; 73030; J1040

== ENCOUNTER → 2022-12-07 13:14 | Outpatient (BNVA) | payer MEDICARE, OTHER, SELFPAY | PROVIDERS: PCP Internal Medicine; Visit Provider Internal Medicine | DX: I26.99 Other pulmonary embolism without acute cor pulmonale (principal); Z79.01 Long term (current) use of anticoagulants; Z51.81 Encounter for therapeutic drug level monitoring | CPT/HCPCS: 85610; 99211 ==

== ENCOUNTER 2022-12-12 15:52 | Outpatient (AMB) | payer MEDICARE, OTHER, SELFPAY ==
[2022-12-12 16:01] LABS: Prothrombin Time Whole Bld POC 32.9 sec (11.1-13.5); ~PT, ~INR - Anti Coag Clinic 2.7 (0.9-1.1)
--- NOTE | 2022-12-12 16:04 | MHC.OFFVISCO ---
Intake Intake Visit Reasons: Anticoagulation Allergies gabapentin Adverse Reaction (Unknown, Verified 12/12/22 15:55) GI upset/nausea/vomiting Medication List - Last Reconciled 12/12/22 by Crista Myers RN acetaminophen 500 mg PO Q6H PRN 10 days baclofen 20 mg PO TID PRN lorazepam 0.5 mg PO Q8H PRN 30 days meloxicam 7.5 mg PO DAILY rosuvastatin 20 mg PO DAILY warfarin 7.5 mg See Protocol PO DAILY Nursing Note INR:2.7- in therapeutic range Medications and supplements reviewed No changes in health, diet, medications, or supplements, Denies any signs and symptoms of bleeding or bruising or clotting. Bleeding, bruising, clotting discussed Nutritional guidance given Dose: 7.5mg daily F/U INR: 1 week Patient verbalizes understanding of instructions given pt to acs self propelled in w/c- with c.o hip pain- taking acetaminophin only, not taking meloxicam, increased stress with husbands health. pt out of strips so to acs for inr check. Anti-Coag Initial Assessment Social Hx Patient Tobacco Use Status: Current everyday Tobacco user alcohol intake: never Coding Level of Care Code Est Patient Level 1 Diagnoses Current use of anticoagulant therapy Z79.01 Assessment & Plan Assessment & Plan (1) Current use of anticoagulant therapy: Code(s): Z79.01 - senior care (current) use of anticoagulants Category: Medical Medications: On Hold meloxicam Hold Comment: Doctor's Order 7.5 mg PO DAILY 20 tabs 0RF M19.011 - Primary osteoarthritis, right shoulder
== END 2022-12-12 16:10 | disposition home or self-care (01) ==
LOC: HO.ACS 15:53
PROVIDERS: PCP Internal Medicine; Visit Provider Internal Medicine
DX: Z79.01 Long term (current) use of anticoagulants (principal)

== ENCOUNTER → 2022-12-12 15:52 | Outpatient (BNVA) | payer MEDICARE, OTHER, SELFPAY | PROVIDERS: PCP Internal Medicine; Visit Provider Internal Medicine | DX: I26.99 Other pulmonary embolism without acute cor pulmonale (principal); Z79.01 Long term (current) use of anticoagulants; Z51.81 Encounter for therapeutic drug level monitoring | CPT/HCPCS: 85610; 99211 ==

== ENCOUNTER → 2022-12-20 12:02 | Outpatient (BNVA) | payer MEDICARE, OTHER, SELFPAY | PROVIDERS: PCP Internal Medicine; Visit Provider Internal Medicine ==

== ENCOUNTER → 2022-12-25 10:02 | Outpatient (BNVA) | payer MEDICARE, OTHER, SELFPAY | PROVIDERS: PCP Internal Medicine; Visit Provider Internal Medicine ==

== ENCOUNTER 2022-12-26 13:16 | Outpatient (REF) | payer MEDICARE, OTHER, SELFPAY ==
--- NOTE | ~2022-12-26 | FL_ITS ---
EXAMINATION: XR ARTHROGRAM SHOULDER, RIGHT CLINICAL INFORMATION: Osteoarthritis right shoulder COMPARISON: Previous x-ray 11/29/2022 TECHNIQUE/FINDINGS: Procedure and risks and benefits including bleeding and infection were discussed with the patient and informed consent was obtained. The right shoulder was prepped and draped in the usual sterile fashion. The skin and soft tissues were anesthetized with 1% lidocaine plain. Using fluoroscopic guidance and a 22-gauge needle, access to the right shoulder joint was obtained. 1 mL of Omnipaque 300 contrast was injected fluoroscopically confirming adequate placement in the joint space. Subsequently, a mixture of 8 mL one percent lidocaine plain and 1 mL 80 mg Depo-Medrol per mL solution was injected in the right shoulder joint. FLUOROSCOPY TIME: 0.2 minutes DOSE AREA PRODUCT: 1.1 hunt per centimeter squared. Total dose 9.2 mgy. 2 saved fluoroscopic images. FL/FL arthrogram shoulder RT IMPRESSION: Therapeutic right shoulder arthrogram.
== END 2022-12-26 13:17 | disposition home or self-care (01) ==
LOC: HO.XRAY 13:16
PROVIDERS: PCP Internal Medicine; Visit Provider Physician Assistant
DX: M19.011 Primary osteoarthritis, right shoulder (principal)
CPT/HCPCS: 23350; 73040

== ENCOUNTER → 2022-12-26 13:18 | Outpatient (BNV) | payer MEDICARE, OTHER, SELFPAY | PROVIDERS: PCP Internal Medicine; Visit Provider Radiology Diagnostic Radiology | DX: M19.011 Primary osteoarthritis, right shoulder (principal) | CPT/HCPCS: 73040 ==

== ENCOUNTER → 2023-01-03 11:05 | Outpatient (BNVA) | payer MEDICARE, OTHER, SELFPAY | PROVIDERS: PCP Internal Medicine; Visit Provider Internal Medicine ==

== ENCOUNTER → 2023-01-10 10:49 | Outpatient (BNVA) | payer MEDICARE, OTHER, SELFPAY | PROVIDERS: PCP Internal Medicine; Visit Provider Internal Medicine ==

== ENCOUNTER → 2023-01-17 11:00 | Outpatient (BNVA) | payer MEDICARE, OTHER, SELFPAY | PROVIDERS: PCP Internal Medicine; Visit Provider Internal Medicine ==

== ENCOUNTER → 2023-01-24 10:32 | Outpatient (BNVA) | payer MEDICARE, OTHER, SELFPAY | PROVIDERS: PCP Internal Medicine; Visit Provider Internal Medicine ==

== ENCOUNTER → 2023-01-31 13:02 | Outpatient (BNVA) | payer MEDICARE, OTHER, SELFPAY | PROVIDERS: PCP Internal Medicine; Visit Provider Internal Medicine ==

== ENCOUNTER → 2023-02-05 12:16 | Outpatient (BNVA) | payer MEDICARE, OTHER, SELFPAY | PROVIDERS: PCP Internal Medicine; Visit Provider Internal Medicine ==

== ENCOUNTER → 2023-02-20 14:30 | Outpatient (BNVA) | payer MEDICARE, OTHER, SELFPAY | PROVIDERS: PCP Internal Medicine; Visit Provider Internal Medicine ==

== ENCOUNTER → 2023-02-22 11:44 | Outpatient (BNVA) | payer MEDICARE, OTHER, SELFPAY | PROVIDERS: PCP Internal Medicine; Visit Provider Internal Medicine ==

== ENCOUNTER → 2023-02-28 15:26 | Outpatient (BNVA) | payer MEDICARE, OTHER, SELFPAY | PROVIDERS: PCP Internal Medicine; Visit Provider Internal Medicine ==

== ENCOUNTER 2023-03-04 11:04 | Outpatient (AMB) | payer MEDICARE, OTHER, SELFPAY ==
[2023-03-04 11:32] LABS: ~PT, ~INR - Anti Coag Clinic 6.5 (0.9-1.1)
--- NOTE | 2023-03-04 11:42 | MHC.OFFVISCO ---
Intake Intake Visit Reasons: Anticoagulation Allergies gabapentin Adverse Reaction (Unknown, Verified 03/04/23 11:24) GI upset/nausea/vomiting Medication List - Last Reconciled 03/04/23 by Crista Myers, RN acetaminophen 500 mg PO Q6H PRN 10 days baclofen 20 mg PO TID PRN cyclobenzaprine 5 mg PO TID PRN 10 days lorazepam 0.5 mg PO Q8H PRN 30 days meloxicam 7.5 mg PO DAILY rosuvastatin 20 mg PO DAILY tramadol 50 mg PO Q4-6H PRN warfarin 7.5 mg See Protocol PO DAILY Nursing Note INR 6.5-?? out of therapeutic range- pt sent to lab, lab inr 6.0 reported by michelle at 1309 orders in for labs per pcp and will be done with stat pt/inr Medications and supplements reviewed Patient status: pt to acs in w/c, not feeling well, cont to c.o nausea, poor appetite. denies constipation at this time prev inr thur 02/28/23 5.9- 2 day hold warfarin pt enc to go to ed but ref- enc to go to urgent care also ref- and to notify pcp Medications or supplements: no changes, taking tramadol prn, baclofen daily Diet: appetite poor Denies any signs and symptoms of bleeding or clotting or unusual bruising Bleeding, bruising, clotting discussed - aware at risk for bleeding and to avoid high risk activity Nutritional guidance given: eat greens to lower inr if able, no reds Dose: hold warfarin today, retest tomm F/U INR Date : pt is a self del, will test tomm? Patient verbalizing understanding of instructions given. pcp office dr cai called with elev inr/dosing and retest tomm. spoke to nova at 1152. made aware pt not feeling well. Anti-Coag Initial Assessment Social Hx Patient Tobacco Use Status: Current everyday Tobacco user alcohol intake: never Coding Level of Care Code Est Patient Level 2 Diagnoses Current use of anticoagulant therapy Z79. 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
== END 2023-03-04 13:05 | disposition home or self-care (01) ==
LOC: HO.ACS 11:04
PROVIDERS: PCP Internal Medicine; Visit Provider Internal Medicine
DX: Z79.01 Long term (current) use of anticoagulants (principal)

== ENCOUNTER 2023-03-04 11:04 | Outpatient (REF) | payer MEDICARE, OTHER, SELFPAY ==
[2023-03-04 12:23] LABS: MANUAL DIFF FLAG NO
[2023-03-04 12:27] LABS: Basophils Absolute Auto 0.1 X10*3/uL (0.0-0.2); Basophils Percent Auto 1.6 % (0-2); Eosinophils Absolute Auto 0.4 X10*3/uL (0.0-0.4); Hematocrit 44.9 % (37.0-47.0); Hemoglobin 14.4 g/dl (12.0-16.0); Imm Gran Abs Auto 0.01 X10*3/uL (0.00-0.03); Imm Gran Pct Auto 0.1 % (0.0-0.4); Lymphocytes Absolute Auto 1.7 X10*3/uL (1.2-4.9); Lymphocytes Percent Auto 24.8 % (20-40); Mean Corpuscular HGB Conc 32.1 g/dl (31.0-35.0); Mean Corpuscular Volume 90.3 fL (80.0-98.0); Mean Platelet Volume 9.8 fL (9.4-12.3); Monocytes Absolute Auto 0.8 X10*3/uL (0.1-1.2); Monocytes Percent Auto 12.2 % (2-11); Neutrophils Absolute Auto 3.8 x10*3/uL (2.0-8.3); Neutrophils Percent Auto 55.3 % (45-73); Platelet Count 368 X10*3/uL (160-400); Red Blood Count 4.97 X10*6/uL (4.20-5.50); Red Cell Distribution Width 14.4 % (11.0-16.0); White Blood Count 6.8 X10*3/uL (4.8-10.8)
[2023-03-04 12:41] LABS: Prothrombin Time 73.4 SEC (11.1-13.3)
[2023-03-04 12:49] LABS: Alanine Aminotransferase 18 U/L (0-31); Albumin Level 3.9 g/dL (3.5-5.0); Alkaline Phosphatase 169 U/L (39-117); Anion Gap 16 (12-20); Aspartate Amino Transferase 27 U/L (5-31); Bilirubin Total 0.5 mg/dL (0.0-1.0); Blood Urea Nitrogen 9 mg/dL (9-16); Calcium 10.6 mg/dL (8.4-10.2); Carbon Dioxide 28 mmol/L (22-29); Chloride 104 mmol/L (96-108); Cholesterol 158 mg/dL (<200); Estimated Glomerular Filt Rate 56; Glucose Fasting 99 mg/dL (60-99); HDL Cholesterol 74 mg/dL (>40); LDL Cholesterol Calculated 67 mg/dL (<100); Potassium 4.5 mmol/L (3.3-5.1); Sodium 143 mmol/L (135-145); Total Protein 7.7 g/dL (6.5-8.0); Triglycerides 86 mg/dL (<150)
[2023-03-04 13:04] LABS: TSH reflex Free T4 0.81 uIU/mL (0.32-4.0); Vitamin D 25-OH Total 15.6 ng/mL (>30)
[2023-03-05 18:03] LABS: Appearance Urine Turbid; Color Urine Dark Yellow; Glucose Urine UA Negative (Negative); Leukocyte Esterase Urine Small (1+) (Negative); Nitrite Urine Negative (Negative); PH 5.5 (5.0-9.0); UMIC TRIGGER UACC YES; Urine Blood Negative (Negative); Urine Ketones Trace mg/dL (Negative); Urine Protein 100 (2+) mg/dL (Neg-Trace)
[2023-03-05 18:18] LABS: Bacteria Urine 2+ (None Seen); Granular Casts Urine Present; Hyaline Casts Urine >20 /LPF (0-2); RBC Urine >20 /HPF (0-2); Squamous Epithelial Cell Urine >20 /HPF (0-2); UACC Culture Trigger YES
== END 2023-03-04 11:05 | disposition home or self-care (01) ==
LOC: HO.LAB 11:04
PROVIDERS: PCP Internal Medicine; Visit Provider Internal Medicine
DX: E78.00 Pure hypercholesterolemia, unspecified (principal); I10 Essential (primary) hypertension; E55.9 Vitamin D deficiency, unspecified; R82.90 Unspecified abnormal findings in urine; Z79.01 Long term (current) use of anticoagulants
CPT/HCPCS: 36415; 80053; 80061; 81001; 82306; 84443; 85025; 85610; 87086; 99212

== ENCOUNTER → 2023-03-05 12:02 | Outpatient (BNVA) | payer MEDICARE, OTHER, SELFPAY | PROVIDERS: PCP Internal Medicine; Visit Provider Internal Medicine ==

== ENCOUNTER → 2023-03-06 11:28 | Outpatient (BNVA) | payer MEDICARE, OTHER, SELFPAY | PROVIDERS: PCP Internal Medicine; Visit Provider Internal Medicine ==

== ENCOUNTER → 2023-03-07 11:08 | Outpatient (BNVA) | payer MEDICARE, OTHER, SELFPAY | PROVIDERS: PCP Internal Medicine; Visit Provider Internal Medicine ==

== ENCOUNTER → 2023-03-08 11:57 | Outpatient (BNVA) | payer MEDICARE, OTHER, SELFPAY | PROVIDERS: PCP Internal Medicine; Visit Provider Internal Medicine ==

== ENCOUNTER → 2023-03-12 09:04 | Outpatient (BNVA) | payer MEDICARE, OTHER, SELFPAY | PROVIDERS: PCP Internal Medicine; Visit Provider Internal Medicine ==

== ENCOUNTER 2023-03-14 11:30 | Outpatient (AMB) | payer MEDICARE, OTHER, SELFPAY ==
--- NOTE | 2023-03-14 11:42 | MHC.OFFVISCO ---
Intake Intake Visit Reasons: Anticoagulation Allergies gabapentin Adverse Reaction (Unknown, Verified 03/14/23 11:30) GI upset/nausea/vomiting Medication List - Last Reconciled 03/14/23 by Anabelle Vaughn RN acetaminophen 500 mg PO Q6H PRN 10 days acetaminophen mg PO Q6H PRN baclofen 20 mg PO TID PRN cyclobenzaprine 5 mg PO TID PRN 10 days enoxaparin (Lovenox) 100 mg See Protocol subcut DAILY lorazepam 0.5 mg PO Q8H PRN 30 days meloxicam 7.5 mg PO DAILY ondansetron 8 mg PO Q12H PRN 7 days oxycodone 5 mg PO QID PRN rosuvastatin 20 mg PO DAILY tramadol 50 mg PO Q4-6H PRN trazodone 50 mg PO BEDTIME PRN warfarin 7.5 mg See Protocol PO DAILY Nursing Note INR received from [facility] INR 4.5? out of therapeutic range Medications and supplements reviewed Patient status: recivering from back fracture when sh just recelty fell again increasing pain in her back, she has OT and PT coming toher home Medications or supplements: resumeD tramadol few days ago which can raise the INR, started trazadone yesterday which can lower the INR Diet: poor Denies any signs and symptoms of bleeding or clotting or unusual bruising Bleeding, bruising, clotting discussed Nutritional guidance given: greens if you have them, eat protein and stay hydrated Activity - very important to stay moving even while sitting and lying down Dose: hold today and chk INR TOMORROW DUE TO LABILE STATUS F/U INR Date : 03/15/23 ?? Patient verbalizing understanding of instructions given. Anti-Coag Initial Assessment Social Hx Patient Tobacco Use Status: Current everyday Tobacco user alcohol intake: never Coding Level of Care Code Est Patient Level 1 Diagnoses Current use of anticoagulant therapy Z79.01 Results AMB INR Fingerstick AMB INR Fingerstick 4.5 Last Edit by Anabelle Vaughn RN on 03/14/23 11:33 HOME METER Assessment & Plan Assessment & Plan (1) Current use of anticoagulant therapy: Code(s): Z79.01 - correction (current) use of anticoagulants Category: Medical Medications: On Hold enoxaparin (Lovenox) Hold Comment: STOP WHEN INR 2.0 OR GREATER 100 mg See Protocol subcut DAILY 7 mL 0RF I63.312 - Cerebral infarction due to thrombosis of left middle cerebral artery, 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
== END 2023-03-14 11:53 | disposition home or self-care (01) ==
LOC: HO.ACS 11:30
PROVIDERS: PCP Internal Medicine; Visit Provider Internal Medicine
DX: Z79.01 Long term (current) use of anticoagulants (principal)

== ENCOUNTER → 2023-03-14 11:30 | Outpatient (BNVA) | payer MEDICARE, OTHER, SELFPAY | PROVIDERS: PCP Internal Medicine; Visit Provider Internal Medicine | DX: I26.99 Other pulmonary embolism without acute cor pulmonale (principal); Z79.01 Long term (current) use of anticoagulants; Z51.81 Encounter for therapeutic drug level monitoring | CPT/HCPCS: 99211 ==

== ENCOUNTER → 2023-03-15 11:05 | Outpatient (BNVA) | payer MEDICARE, OTHER, SELFPAY | PROVIDERS: PCP Internal Medicine; Visit Provider Internal Medicine ==

== ENCOUNTER 2023-03-18 10:16 | Outpatient (REF) | payer MEDICARE, OTHER, SELFPAY ==
[2023-03-18 17:23] LABS: Appearance Urine Clear; Color Urine Dark Yellow; Glucose Urine UA Negative (Negative); Leukocyte Esterase Urine Trace (Negative); Nitrite Urine Negative (Negative); PH 5.5 (5.0-9.0); UMIC TRIGGER UACC YES; Urine Blood Negative (Negative); Urine Ketones Trace mg/dL (Negative); Urine Protein 30 (1+) mg/dL (Neg-Trace)
[2023-03-18 17:39] LABS: Bacteria Urine None Seen (None Seen); Hyaline Casts Urine 0-2 /LPF (0-2); WBC Urine 0-5 /HPF (0-5)
[2023-03-18 17:50] LABS: Alanine Aminotransferase 17 U/L (0-31); Albumin Level 3.8 g/dL (3.5-5.0); Alkaline Phosphatase 110 U/L (39-117); Anion Gap 14 (12-20); Aspartate Amino Transferase 23 U/L (5-31); Bilirubin Total 0.5 mg/dL (0.0-1.0); Blood Urea Nitrogen 11 mg/dL (9-16); Carbon Dioxide 27 mmol/L (22-29); Chloride 103 mmol/L (96-108); Estimated Glomerular Filt Rate > 60; Glucose Random 141 mg/dL (60-115); Potassium 4.2 mmol/L (3.3-5.1); Sodium 140 mmol/L (135-145); Total Protein 7.3 g/dL (6.5-8.0)
== END 2023-03-18 10:17 | disposition home or self-care (01) ==
LOC: HO.LAB 10:16
PROVIDERS: Absent Provider Internal Medicine; PCP Internal Medicine; Visit Provider Internal Medicine
DX: E83.52 Hypercalcemia (principal); R30.0 Dysuria; R31.9 Hematuria, unspecified
CPT/HCPCS: 36415; 80053; 81001

== ENCOUNTER 2023-03-18 14:27 | Outpatient (AMB) | payer MEDICARE, OTHER, SELFPAY ==
[2023-03-18 14:30] VITALS: BP 126/82; PULSE 93; O2SAT 99; BMI 32.7
--- NOTE | 2023-03-18 14:30 | A.OFFPC_ITS ---
Vital Signs 03/18/23 14:30 Height 5 ft 10 in Weight 228 lb BMI 32.7 BP 126/82 Blood Pressure Location Lt brachial Position Sitting Pulse 93 Pulse Source Pulse Oximeter Pulse Oximetry (%) 99 Oxygen Delivery Method Room Air Intake Visit Reasons: annual PE Clip On Sunglasses Inspector Required: No Accompanied by: Self / Same As Patient Allergies gabapentin Adverse Reaction (Unknown, Verified 03/18/23 15:48) GI upset/nausea/vomiting Medication List - Last Reconciled 03/18/23 by Abdias Trotter MD acetaminophen 500 mg PO Q6H PRN 10 days acetaminophen mg PO Q6H PRN baclofen 20 mg PO TID PRN cholecalciferol (vitamin D3) 50 mcg PO DAILY 90 days cyclobenzaprine 5 mg PO TID PRN 10 days enoxaparin (Lovenox) 100 mg See Protocol subcut DAILY lorazepam 0.5 mg PO Q8H PRN 30 days ondansetron 8 mg PO Q12H PRN 7 days rosuvastatin 20 mg PO DAILY tramadol 50 mg PO Q4-6H PRN trazodone 50 mg PO BEDTIME PRN warfarin 7.5 mg See Protocol PO DAILY Tobacco use date assessed: 03/18/23 Fall risk assessment: 1 Fall in past year Last assessed Fall Risk: 03/18/23 Dental Screening Dental Screen Date: 03/18/23 Did you have a dental visit in the last 12 months?: No Did you have a dental problem in the last 6 months where you did not have access to dental care?: No Was dental information given to patient?: No HPI annual PE HPI Details Patient comes in today for her annual physical examination States that she is still experiencing on and off nausea but her current Rx (Ondansetron) is helping Had her INR done again earlier today and would like to know how it came out - INR has been off for the past couple of weeks and went up to 6.0 back on 03/04/2023 Is currently still experiencing increased pain over her lower back and is currently still ambulating with a walker - had a T9 vertebral compression fracture seen on recent CTA of the chest and she underwent PT/OT for a couple of weeks with [facility] - was discharged last month on 02/19/23 She denies any headaches or dizziness lately Denies any chest pains, no increased SOB No vomiting, no abdominal pain and no change in bowel habits noted Denies any acute urinary symptoms Had her labs done a couple of weeks ago - to discuss her results She had a Cologuard test done last year in 04/2022 that came out negative; declined referral for colonoscopy Mammography was last done in 2016 and she declined to get this repeated - states that she got hurt severely on her breasts the last time she had it done and does not wish to go through it again States that she checks her own breasts manually regularly and has not felt any unusual mass or lump so far Would like to see about a bone density - has never had one done before Would also like to get her flu shot today [facility] Medical History Osteoarthritis Vitamin D deficiency Smoker Mitral valve annular calcification Obesity (BMI 30-39.9) Anxiety Mixed hyperlipidemia Factor V deficiency Lumbar degenerative disc disease Cerebrovascular accident (CVA) due to thrombosis of left middle cerebral artery Nonrheumatic aortic (valve) stenosis Surgical History History of CVA (cerebrovascular accident) Aortic valve replaced History of cardiac catheterization Family History Father No problems noted. 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 1. Little interest or pleasure in doing things: several days 2. Feeling down, depressed, or hopeless: several days 3. Trouble falling or staying asleep, or sleeping too much: several days 4. Feeling tired or having little energy: several days 5. Poor appetite or overeating: not at all 6. Feeling bad about yourself - or that you are a failure or have let yourself or your family down: not at all 7. Trouble concentrating on things, such as reading the newspaper or watching television: not at all 8. Moving or speaking so slowly that other people could have noticed. Or the opposite - being so fidgety or restless that you have been moving around a lot more than usual: not at all 9. Thoughts that you would be better off or of hurting yourself in some way: not at all Total score: 4 Depression Screening Interpretation: Positive Depression Screening Follow-up: Existing condition and Declines treatment Depression Screening Done: Yes 46845 - PHQ-9 Billing: Yes Source: Developed by Drs. Dave Nelson, Rosa Scherer, Alex Mandujano and colleagues, with an educational melissa from [employer]. Thrive Questionnaire Date Thrive assessed: 03/18/23 I am a: Patient What is your living situation today?: I have a steady place to live Within the past 12 months, did the food you bought not last and you didn't have the money to get more?: Never true Within the past 12 months, did you worry whether your food would run out before you got money to buy more?: Never true Do you have trouble paying for medicines?: No Do you have trouble getting transportation to medical appointments?: No Do you have trouble paying your heating and electricity bill?: No Do you have trouble taking care of your child, family member or friend?: No Do you have trouble with day-to-day activities such as bathing, preparing meals, shopping, managing finances, etc.?: No Are you currently unemployed and looking for a job?: No Are you interested in more education?: No Please select the resources that you would like help with: None Currently or been in a relationship where the following occur: no concerns reported AUDIT C Alcohol Use Questionnaire (AUDIT-C) 1. How often do you have a drink containing alcohol?: Never 3. How often do you have six or more drinks on one occasion?: Never Total Score: 0 Score Reviewed/Action Taken: Yes JULIO CESAR-7 AMB Questionnaire JULIO CESAR-7 Date JULIO CESAR - 7 assessed: 03/18/23 Feeling nervous, anxious, or on edge: 3 = Nearly every day Not being able to stop or control worryin = Nearly every day Worrying too much about different things: 3 = Nearly every day Trouble relaxin = Nearly every day Being so restless that it is hard to sit still: 3 = Nearly every day Becoming easily annoyed or irritable: 3 = Nearly every day Feeling afraid as if something awful might happen: 3 = Nearly every day Total JULIO CESAR-7 score (0-4 normal; 5-9 mild; 10-14 moderate; 15-21 severe): 21 Source: Developed by Drs. Dave Nelson, Rosa Scherer, Alex Mandujano and colleagues, with an educational melissa from [employer]. Review of Systems Const Denies chills, Reports fatigue, Denies fever(s) and Denies headache(s) Eyes Denies blurry vision, Denies change in vision, Denies irritation and Denies itchy eyes ENT Denies dysphagia, Denies dizziness, Denies otalgia, Denies headache(s), Denies neck pain, Denies odynophagia and Denies sore throat Card Denies chest pain, Denies palpitations and Denies dyspnea Resp Denies cough, Denies dyspnea and Denies wheezing GI Denies abdominal pain, Denies constipation, Denies dysphagia, Denies heartburn, Denies diarrhea, Reports nausea (on and off lately), Denies odynophagia and Denies vomiting Denies difficulty voiding, Denies nocturia, Denies dysuria and Denies urinary urgency Musc Reports back pain (increased over the past couple of months - see HPI), Reports arthralgias (right knee, on and off), Reports joint swelling (right knee, on and off), Denies muscle weakness, Denies neck pain and Reports radiating pain into limb (into both legs) Skin/Breast Denies breast pain, Denies breast mass, Denies change in pigmentation, Denies lesions, Denies rash and Denies unusual bruising Neuro Denies dizziness and Denies headache(s) Psych Reports anxiety and Denies depression Endo Reports fatigue and Denies palpitations [place]/Lymph Denies easy bruising Aller/Immun Denies itchy eyes and Denies wheezing Physical exam (Primary Care) Vital Signs: Last Vital Signs Pulse 93 03/18/23 14:30 BP 126/82 03/18/23 14:30 Pulse Ox 99 03/18/23 14:30 Oxygen Delivery Method Room Air 03/18/23 14:30 BMI result Body Mass Index 32.7 Tobacco/Smoking Status: Tobacco use Status Tobacco use date assessed 03/18/23 03/18/23 14:32 Patient Tobacco Use Status Current everyday Tobacco 03/18/23 14:32 e-Cigarette/Vaping Use Never Used 03/18/23 14:32 PHQ-9: PHQ-9 Score PHQ-9: Total score 4 03/18/23 15:35 Depression Screening Interpretation: Positive Depression Screening Follow-up: Existing condition and Declines treatment Thrive Assessment: Date of Thrive Assessment Date Thrive assessed 03/18/23 03/18/23 14:32 Currently or been in a relationship where the following occur: no concerns reported Const General: no acute distress and alert Orientation/consciousness: patient oriented x3 HENMT Head: Yes normocephalic and Yes atraumatic Ears: TM's normal bilaterally and EAC's normal General nose exam: No nasal discharge present Face and sinus: Yes normal facial exam and Yes sinuses nontender Teeth and gingiva: dentition normal Throat: Yes posterior oropharynx normal and Yes tonsils normal (no TP congestion) Eyes Eyelids: Yes eyelids normal Conjunctivae: conjunctivae normal Pupils: Equal, round and reactive pupils present EOM: EOMs intact bilaterally Neck Neck: Yes no lymphadenopathy and Yes supple Thyroid: Thyroid normal Resp Auscultation: clear to auscultation bilaterally, no rales and no wheezes Cardio Rate: regular rate Rhythm: regular rhythm Heart sounds: no murmurs GI Palpation (GI): Soft to palpation and nontender Auscultation: normal bowel sounds General: Yes no CVA tenderness Back/Spine/Pelvis Back: no CVA tenderness Thoracic/Lumbar Spine: thoracic spinal tenderness (increased) at T9 and lumbar spinal tenderness Skin Lesions: no lesions Rashes: no rashes Neuro General: patient oriented x3, moves all extremities, no focal motor deficits and CN's II-XI intact bilaterally Cranial nerves: Yes Equal, round and reactive pupils present Cognition (Neuro): normal cognition Gait exam (Neuro): Assistive device used (walker) Extrem General: Yes no clubbing, cyanosis or edema Right lower extremity: knee Details: tenderness and swelling Office Procedures Flu Questionnaire Does the patient have a severe egg allergy?: No Does the patient have severe life threatening allergies?: No Does the patient have a fever or illness today?: No Has the patient ever had Guillain-Camby Syndrome?: No Has the patient ever had any past reaction to a flu shot?: No Results AMB INR Fingerstick 2 AMB INR Fingerstick 2.0 Last Edit by Anabelle Vaughn RN on 03/18/23 10:52 HOME METER Immunizations flu vacc [id number] 6mos up(PF) 60 mcg(15 mcgx4)/0.5 mL IM syringe Performing Provider: Abidas Trotter MD [facility] Administered by: Denisha Morrow on 03/18/23 15:52 Dose Route Admin Location Dispensed Lot Number Expiration Date NDC Dry Color Mixer 0.5 mL IM Left Deltoid 0.5 mL [id number] 12/01/23 [id number] [employer] VIS Given Date VIS Provided VIS Publication Date 03/18/23 Single Vaccine 21 Eligibility Eligibility Date Funding Source Not VFC Eligible 03/18/23 Private Results Reviewed Results Reviewed: Laboratory Tests 03/04/23 03/04/23 12:17 13:55 WBC 6.8 Hgb 14.4 Hct 44.9 Plt Count 368 D Sodium 143 Potassium 4.5 Creatinine 1.00 Estimated GFR 56 Fasting Glucose 99 Calcium 10.6 H D AST 27 ALT 18 Triglycerides 86 Cholesterol 158 LDL Cholesterol, Calc 67 HDL Cholesterol 74 25-OH Vitamin D Total 15.6 TSH 0.81 Ur Specific [place] 1.020 Urine Protein 100 (2+) H Urine Glucose (UA) Negative Urine Blood Negative Urine RBC >20 H Hyaline Casts >20 Granular Casts Present Assessment and Plan Assessment & Plan (1) Annual physical exam: Code(s): Z00.00 - Encounter for general adult medical examination without abnormal findings Plan: Results of her labs done a couple of weeks ago reviewed and discussed with patient Her last mammogram was done in 2016 and patient has since and continues to decline referral for repeat mammogram - recalls that she was experiencing a lot of pain in her breasts and even ended up with some abrasions and injuries to the skin of her breasts after her last mammogram and does not wish to go through what she did again States that she has been doing her own breast exam regularly and so far has not found anything unusual She had a negative Cologuard done last year in April 2022; declines to get a regular screening colonoscopy done States that she has also not been putting up with getting a yearly propagator exam and pap smear for a few years now - states that especially with her current back pain issues, she will not be able to get into position for her pap smear (2) Compression fracture of T9 vertebra: Code(s): S22.070A - Wedge compression fracture of T9-T10 vertebra, initial encounter for closed fracture Qualifiers: Encounter type: sequela Qualified Code(s): S22.070S - Wedge compression fracture of T9-T10 vertebra, sequela Plan: CTA of the chest done last month (February 2023) revealed (+) T9 vertebral compression fracture Patient has completed PT/OT/short term rehab with [facility] She continues to struggle with pain over her mid to lower back but states that she is managing Continue Tramadol 50 mg TID PRN and Cyclobenzaprine 5 mg TID PRN for pain (3) Lumbar degenerative disc disease: Code(s): M51.36 - Other intervertebral disc degeneration, lumbar region Plan: Reinforced activity and weight lifting restrictions Continue Cyclobenzaprine 5 mg TID as needed (4) Granular casts present in urine: Code(s): R82.998 - Other abnormal findings in urine Plan: Advised that her urinarlysis done recently revealed (+) casts with hematuria; her GFR has also declined slightly on her recent labs Will have her recheck some labs and urinalysis [place] for follow up and if she continues to pass out cast cells in her urine, which would suggest some renal injury or ATN, will send her for renal US [place] for further evaluation (5) Factor V deficiency: Code(s): 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 Plan: Continue Coumadin 10 mg QD as instructed per PT/INR results Her INR done earlier today is now therapeutic at 2.0 (6) Cerebrovascular accident (CVA) due to thrombosis of left middle cerebral artery: Code(s): I63.312 - Cerebral infarction due to thrombosis of left middle cerebral artery Plan: S/P tPA and IR thrombectomy at [facility] in 11/2018 with very little residual neurologic deficit Follow-up with Neurology as scheduled (7) Nonrheumatic aortic (valve) stenosis: Code(s): I35.0 - Nonrheumatic aortic (valve) stenosis Plan: S/P TAVR at [facility] in [place] on 11/27/2018 - her cardiac symptoms have improved significantly since Cardiac catheterization done at [facility] prior to her TAVR came out normal Follow up with cardiology as scheduled for continuing management /surveillance (8) Status post transcatheter aortic valve replacement (TAVR) using bioprosthesis: Comment: surgery done at [facility] in [place] in 11/2018 Code(s): Z95.3 - Presence of xenogenic heart valve Plan: Follow up with cardiology as scheduled (9) Mitral valve annular calcification: Code(s): I05.9 - Rheumatic mitral valve disease, unspecified Plan: S/P TAVR Follow up with cardiology as scheduled (10) Mixed hyperlipidemia: Code(s): E78.2 - Mixed hyperlipidemia Plan: Results of her labs done a couple of weeks ago reviewed and discussed with patient Reinforced low cholesterol diet Continue Rosuvastatin 20 mg QD Will recheck her labs and fasting lipids in 4 months for follow up (11) Vitamin D deficiency: Code(s): E55.9 - Vitamin D deficiency, unspecified Plan: Advised that her Vitamin D level is still low and is likely contributing indirectly to her elevated calcium level SHe should start again on Vitamin D3 2000 units QD - Rx sent but advised that she can get this OTC if insurance will not cover Rx (12) Osteoarthritis: Comment: Involving multiple joints Code(s): M19.90 - Unspecified osteoarthritis, unspecified site Qualifiers: Osteoarthritis location: unspecified site Osteoarthritis type: primary Qualified Code(s): M19.91 - Primary osteoarthritis, unspecified site Plan: Knee x-rays done back in March 2022 revealed (+) OA changes bilaterally, worse in the right knee Was seen by orthopedics earlier this year and offered cortisone injection but patient declined; was advised to just call them if she changes her mind about this Follow up with orthopedics as scheduled/as needed (13) Anxiety: Code(s): F41.9 - Anxiety disorder, unspecified Plan: Continue Lorazepam 0.5 mg every 8 hours as needed (14) Smoker: Code(s): F17.200 - Nicotine dependence, unspecified, uncomplicated Plan: Counseled again on smoking cessation (15) Obesity (BMI 30-39.9): Code(s): E66.9 - Obesity, unspecified Plan: Reinforced diet; exercise and weight loss are limited and not realistic at this time due to her current back and ongoing joint issues (16) Osteoporosis screening: Code(s): Z13.820 - Encounter for screening for osteoporosis Plan: She did agree to get a bone density scan for osteoporosis screening as she has been in menopause for years now - this will be her baseline screen Plan Per request, flu vaccine given today Follow up in 4 months Orders: Orders Comprehensive Met. Panel Today E83.52 - Hypercalcemia XR DEXA axial skeleton Today Z78.0 - Asymptomatic menopausal state Influenza [id number] Immunization Today Z23 - Encounter for immunization UA CC w/rflx Micro + Cult Today R31.9 - Hematuria, unspecified Medications: New cholecalciferol (vitamin D3) 50 mcg PO DAILY 90 days 90 caps 3RF E55.9 - Vi tamin D deficiency, unspecified Review Patient declined Mammogram: 03/18/23 Declined Pap Smear: 03/18/23 Patient declined Colonoscopy: 03/18/23 (had Cologuard done in 04/2022 - negative) Coding Level of Care Code Est Pt Prev Care >65y(82043) Diagnoses Annual physical exam Z00.00 Compression fracture of T9 vertebra, sequela S22.070S Encounter type: sequela Lumbar degenerative disc disease M51.36 Granular casts present in urine R82.998 Factor V deficiency D68.2 Cerebrovascular accident (CVA) due to thrombosis of left middle cerebral artery I63.312 Nonrheumatic aortic (valve) stenosis I35.0 Status post transcatheter aortic valve replacement (TAVR) using bioprosthesis Z95.3 Mitral valve annular calcification I05.9 Mixed hyperlipidemia E78.2 Vitamin D deficiency E55.9 Primary osteoarthritis, unspecified site M19.91 Osteoarthritis location: unspecified site Osteoarthritis type: primary Anxiety F41.9 Smoker F17.200 Obesity (BMI 30-39.9) E66.9 Osteoporosis screening Z13.820
== END 2023-03-18 15:47 | disposition home or self-care (01) ==
PROVIDERS: Visit Provider Internal Medicine
DX: Z23 Encounter for immunization (principal)
CPT/HCPCS: 90471; 90686

== ENCOUNTER → 2023-03-21 13:41 | Outpatient (BNVA) | payer MEDICARE, OTHER, SELFPAY | PROVIDERS: PCP Internal Medicine; Visit Provider Internal Medicine ==

== ENCOUNTER → 2023-03-26 13:42 | Outpatient (BNVA) | payer MEDICARE, OTHER, SELFPAY | PROVIDERS: PCP Internal Medicine; Visit Provider Internal Medicine ==

== ENCOUNTER → 2023-04-02 10:54 | Outpatient (BNVA) | payer MEDICARE, OTHER, SELFPAY | PROVIDERS: PCP Internal Medicine; Visit Provider Internal Medicine ==

== ENCOUNTER 2023-04-04 14:16 | Outpatient (REF) | payer MEDICARE, OTHER, SELFPAY ==
--- NOTE | ~2023-04-04 | MM_ITS ---
EXAMINATION: BONE DENSITOMETRY CLINICAL INDICATION: Menopause. COMPARISON: This is the patient's baseline examination. TECHNIQUE: Using a FlowJob DXA System (software version: 13.1) manufactured by [employer], dual-energy x-ray absorptiometry was performed of the lumbar spine and left hip. The images are of good technical quality. Summary results are attached. FINDINGS: LEFT FEMUR, NECK: BMD 0.780 g/cm2, Z-score -1.1, T-score -1.9, osteopenia. LEFT FEMUR, TOTAL: BMD 0.767 g/cm2, Z-score -1.5, T-score -1.9, osteopenia. AP SPINE L1-L2 (excluding L3 and L4): The data of L1-L4 has been changed to exclude the L3 and L4 vertebral bodies, because metallic hardware at these levels may cause overestimation of lumbar spine density. BMD 0.932 g/cm2, Z-score -1.5, T-score -1.9, osteopenia. IDENTIFIED RISK FACTORS: Menopause, height loss, history of fracture (adult). HISTORY OF FRACTURE: Spine. MEDICATIONS: Vitamin D. MM/XR DEXA axial skeleton IMPRESSION: 1. DIAGNOSIS: Osteopenia based on the lowest T-score value of -1.9 in the lumbar spine, left femur neck, and left femur total applying World Health Organization criteria. 2. 10-YEAR FRACTURE RISK PREDICTION, FRAX: Major osteoporotic fracture (clinical spine, forearm, hip or shoulder) 16.0%. Hip fracture 2.2%. 3. Treatment Recommendations: NOF guidelines recommend consideration for treatment in postmenopausal women and men age 50 and older presenting with the following: -A hip or vertebral (clinical or morphometric) fracture. -T-score less than or equal to -2.5 at the femoral neck or spine after appropriate evaluation to exclude secondary causes. -Low bone mass at the hip or spine and a 10-year fracture probability by FRAX of greater than or equal to 3% for hip fracture or greater than or equal to 20% for major osteoporotic fracture based on the [place] adapted WHO algorithm. 4. Other Recommendations: All treatment decisions require clinical judgment and consideration of individual patient factors, including patient preferences, comorbidities, previous drug use, risk factors not captured in the FRAX model (e.g. frailty, falls, vitamin D deficiency, increased bone turnover, interval significant decline in bone density) and possible under or overestimation of fracture risk by FRAX. Additional medical evaluation for secondary cause of low bone mineral density may be appropriate. FUTURE SCAN RECOMMENDATION: People with diagnosed cases of osteoporosis or at high risk for fracture should have regular bone mineral density tests. For patients eligible for Medicare, routine testing is allowed once every 2 years. The testing frequency can be increased to one year for patients who have rapidly progressing disease, those who are receiving or discontinuing medical therapy to restore bone mass, or have additional risk factors.
== END 2023-04-04 14:17 | disposition home or self-care (01) ==
LOC: HO.MAMMO 14:16
PROVIDERS: PCP Internal Medicine; Visit Provider Internal Medicine
DX: Z13.820 Encounter for screening for osteoporosis (principal); Z78.0 Asymptomatic menopausal state
CPT/HCPCS: 77080

== ENCOUNTER → 2023-04-09 10:34 | Outpatient (BNVA) | payer MEDICARE, OTHER, SELFPAY | PROVIDERS: PCP Internal Medicine; Visit Provider Internal Medicine ==

== ENCOUNTER → 2023-04-16 09:22 | Outpatient (BNVA) | payer MEDICARE, OTHER, SELFPAY | PROVIDERS: PCP Internal Medicine; Visit Provider Internal Medicine ==

== ENCOUNTER → 2023-04-23 14:14 | Outpatient (BNVA) | payer MEDICARE, OTHER, SELFPAY | PROVIDERS: PCP Internal Medicine; Visit Provider Internal Medicine ==

== ENCOUNTER → 2023-04-30 10:49 | Outpatient (BNVA) | payer MEDICARE, OTHER, SELFPAY | PROVIDERS: PCP Internal Medicine; Visit Provider Internal Medicine ==

== ENCOUNTER → 2023-05-07 14:08 | Outpatient (BNVA) | payer MEDICARE, OTHER, SELFPAY | PROVIDERS: PCP Internal Medicine; Visit Provider Internal Medicine ==

== ENCOUNTER → 2023-05-14 10:36 | Outpatient (BNVA) | payer MEDICARE, OTHER, SELFPAY | PROVIDERS: PCP Internal Medicine; Visit Provider Internal Medicine ==

== ENCOUNTER → 2023-05-21 11:20 | Outpatient (BNVA) | payer MEDICARE, OTHER, SELFPAY | PROVIDERS: PCP Internal Medicine; Visit Provider Internal Medicine ==

== ENCOUNTER → 2023-05-29 11:46 | Outpatient (BNVA) | payer MEDICARE, OTHER, SELFPAY | PROVIDERS: PCP Internal Medicine; Visit Provider Internal Medicine ==

== ENCOUNTER → 2023-06-04 11:31 | Outpatient (BNVA) | payer MEDICARE, OTHER, SELFPAY | PROVIDERS: PCP Internal Medicine; Visit Provider Internal Medicine ==

== ENCOUNTER → 2023-06-07 11:16 | Outpatient (BNVA) | payer MEDICARE, OTHER, SELFPAY | PROVIDERS: PCP Internal Medicine; Visit Provider Internal Medicine ==

== ENCOUNTER → 2023-06-13 10:17 | Outpatient (BNVA) | payer MEDICARE, OTHER, SELFPAY | PROVIDERS: PCP Internal Medicine; Visit Provider Internal Medicine ==

== ENCOUNTER → 2023-06-20 11:53 | Outpatient (BNVA) | payer MEDICARE, OTHER, SELFPAY | PROVIDERS: PCP Internal Medicine; Visit Provider Internal Medicine ==

== ENCOUNTER → 2023-06-27 10:33 | Outpatient (BNVA) | payer MEDICARE, OTHER, SELFPAY | PROVIDERS: PCP Internal Medicine; Visit Provider Internal Medicine ==

== ENCOUNTER → 2023-07-03 11:46 | Outpatient (BNVA) | payer MEDICARE, OTHER, SELFPAY | PROVIDERS: PCP Internal Medicine; Visit Provider Internal Medicine ==

== ENCOUNTER → 2023-07-11 14:29 | Outpatient (BNVA) | payer MEDICARE, OTHER, SELFPAY | PROVIDERS: PCP Internal Medicine; Visit Provider Internal Medicine ==

== ENCOUNTER → 2023-07-18 11:00 | Outpatient (BNVA) | payer MEDICARE, OTHER, SELFPAY | PROVIDERS: PCP Internal Medicine; Visit Provider Internal Medicine ==

== ENCOUNTER 2023-07-22 14:06 | Outpatient (AMB) | payer MEDICARE, OTHER, SELFPAY ==
[2023-07-22 14:08] VITALS: BP 138/86; PULSE 76; O2SAT 95; BMI 33.1
--- NOTE | 2023-07-22 14:08 | A.OFFPC_ITS ---
Vital Signs 07/22/23 14:08 Height 5 ft 10 in Weight 231 lb BMI 33.1 BP 138/86 Blood Pressure Location Lt brachial Position Sitting Pulse 76 Pulse Source Pulse Oximeter Pulse Oximetry (%) 95 Oxygen Delivery Method Room Air Intake Visit Reasons: 4mth f/u Composition Floor Setter Required: No Accompanied by: Self / Same As Patient Allergies gabapentin Adverse Reaction (Unknown, Verified 01/02/24 10:17) GI upset/nausea/vomiting Medication List - Last Reconciled 07/22/23 by Abdias Trotter MD acetaminophen 500 mg PO Q6H PRN 10 days acetaminophen mg PO Q6H PRN baclofen 20 mg PO TID PRN cholecalciferol (vitamin D3) 50 mcg PO DAILY 90 days cyclobenzaprine 5 mg PO TID PRN 10 days enoxaparin (Lovenox) 100 mg See Protocol subcut DAILY lorazepam 0.5 mg PO Q8H PRN 30 days ondansetron 8 mg PO Q12H PRN 7 days rosuvastatin 20 mg PO DAILY tramadol 50 mg PO Q4-6H PRN trazodone 50 mg PO BEDTIME PRN warfarin 7.5 mg See Protocol PO DAILY Tobacco use date assessed: 07/22/23 Fall risk assessment: No Falls in past year Last assessed Fall Risk: 07/22/23 Dental Screening Dental Screen Date: 07/22/23 Did you have a dental visit in the last 12 months?: No Did you have a dental problem in the last 6 months where you did not have access to dental care?: No Was dental information given to patient?: No HPI 4mth f/u HPI Details Patient comes in today for her follow up visit States that she is currently under a lot of stress as her had a stroke (due to his AF) and he is now back in [facility] States that she is presently still experiencing increased pain over her lower back and lately, has noticed some swelling in her right lower leg, ankle and foot at times lately Is wondering if she should go back on her Lasix again and if necessary, will need this Rx refilled She denies any headaches or dizziness Denies any chest pains, no SOB No nausea/vomiting, no abdominal pain No change in bowel habits noted Has noticed a decline in her visual acuity lately - will need to see ophthalmology for further evaluation [facility] Medical History Osteoarthritis Vitamin D deficiency Smoker Mitral valve annular calcification Obesity (BMI 30-39.9) Anxiety Mixed hyperlipidemia Factor V deficiency Lumbar degenerative disc disease Cerebrovascular accident (CVA) due to thrombosis of left middle cerebral artery Nonrheumatic aortic (valve) stenosis Surgical History History of CVA (cerebrovascular accident) Aortic valve replaced History of cardiac catheterization Family History Father No problems noted. 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 1. Little interest or pleasure in doing things: several days 2. Feeling down, depressed, or hopeless: several days 3. Trouble falling or staying asleep, or sleeping too much: several days 4. Feeling tired or having little energy: several days 5. Poor appetite or overeating: not at all 6. Feeling bad about yourself - or that you are a failure or have let yourself or your family down: not at all 7. Trouble concentrating on things, such as reading the newspaper or watching television: not at all 8. Moving or speaking so slowly that other people could have noticed. Or the op posite - being so fidgety or restless that you have been moving around a lot more than usual: not at all 9. Thoughts that you would be better off or of hurting yourself in some way: not at all Total score: 4 Depression Screening Interpretation: Positive Depression Screening Follow-up: Existing condition and Declines treatment Depression Screening Done: Yes [id number] - PHQ-9 Billing: Yes Source: Developed by Drs. Dave Nelson, Rosa B.Alex Johnson and colleagues, with an educational melissa from [employer]. Thrive Questionnaire Date Thrive assessed: 07/22/23 I am a: Patient What is your living situation today?: I have a steady place to live Within the past 12 months, did the food you bought not last and you didn't have the money to get more?: Never true Within the past 12 months, did you worry whether your food would run out before you got money to buy more?: Never true Do you have trouble paying for medicines?: No Do you have trouble getting transportation to medical appointments?: No Do you have trouble paying your heating and electricity bill?: No Do you have trouble taking care of your child, family member or friend?: No Do you have trouble with day-to-day activities such as bathing, preparing meals, shopping, managing finances, etc.?: No Are you currently unemployed and looking for a job?: No Are you interested in more education?: No Please select the resources that you would like help with: None Currently or been in a relationship where the following occur: no concerns reported THRIVE Score: 0 AUDIT C Alcohol Use Questionnaire (AUDIT-C) 1. How often do you have a drink containing alcohol?: Never 3. How often do you have six or more drinks on one occasion?: Never Total Score: 0 Score Reviewed/Action Taken: Yes JULIO CESAR-7 AMB Questionnaire JULIO CESAR-7 Date JULIO CESAR - 7 assessed: 07/22/23 Feeling nervous, anxious, or on edge: 3 = Nearly every day Not being able to stop or control worryin = Nearly every day Worrying too much about different things: 3 = Nearly every day Trouble relaxin = Nearly every day Being so restless that it is hard to sit still: 3 = Nearly every day Becoming easily annoyed or irritable: 3 = Nearly every day Feeling afraid as if something awful might happen: 3 = Nearly every day Total JULIO CESAR-7 score (0-4 normal; 5-9 mild; 10-14 moderate; 15-21 severe): 21 Source: Developed by Drs. Dave Nelson, Alex Rivera and colleagues, with an educational melissa from [employer]. Review of Systems Const Denies chills, Reports difficulty sleeping, Reports fatigue, Denies fever(s) and Denies headache(s) Eyes Reports blurry vision ENT Denies dysphagia, Denies dizziness, Denies otalgia, Denies headache(s), Denies neck pain, Denies odynophagia and Denies sore throat Card Denies chest pain, Reports rapid heart rate (at times), Denies palpitations and Reports dyspnea on exertion (increasing lately) Resp Denies cough, Reports dyspnea on exertion (increasing lately) and Denies wheezing GI Denies abdominal pain, Denies constipation, Denies dysphagia, Denies heartburn, Denies diarrhea, Denies nausea, Denies odynophagia and Denies vomiting Denies difficulty voiding, Denies nocturia, Denies dysuria and Denies urinary urgency Musc Reports back pain (increased over the past couple of months ), Reports arthralgias (right knee, on and off), Reports joint swelling (right knee, on and off), Denies neck pain and Reports radiating pain into limb (into both legs) Skin/Breast Denies rash Neuro Denies dizziness and Denies headache(s) Psych Reports anxiety and Denies depression Endo Reports fatigue and Denies palpitations [place]/Lymph Denies easy bruising Aller/Immun Denies wheezing Physical exam (Primary Care) Vital Signs: Last Vital Signs Pulse 76 07/22/23 14:08 BP 138/86 07/22/23 14:08 Pulse Ox 95 07/22/23 14:08 Oxygen Delivery Method Room Air 07/22/23 14:08 BMI result Body Mass Index 33.1 Tobacco/Smoking Status: Tobacco use Status Tobacco use date assessed 07/22/23 07/22/23 14:18 Patient Tobacco Use Status Current everyday Tobacco 07/22/23 14:18 e-Cigarette/Vaping Use Never Used 07/22/23 14:18 PHQ-9: PHQ-9 Score PHQ-9: Total score 4 07/22/23 14:52 Depression Screening Interpretation: Positive Depression Screening Follow-up: Existing condition and Declines treatment Thrive Assessment: Date of Thrive Assessment Date Thrive assessed 07/22/23 07/22/23 14:18 Currently or been in a relationship where the following occur: no concerns reported Const General: no acute distress and alert HENMT Ears: TM's normal bilaterally and EAC's normal Throat: Yes posterior oropharynx normal and Yes tonsils normal (no TP congestion) Neck Neck: Yes no lymphadenopathy and Yes supple Thyroid: Thyroid normal Resp Auscultation: clear to auscultation bilaterally, no rales and no wheezes Cardio Rate: regular rate Rhythm: regular rhythm Heart sounds: no murmurs GI Palpation (GI): Soft to palpation and nontender Auscultation: normal bowel sounds General: Yes no CVA tenderness Back/Spine/Pelvis Back: no CVA tenderness Thoracic/Lumbar Spine: lumbar spinal tenderness Skin Rashes: no rashes Extrem General: No clubbing, No cyanosis and Yes edema (over the right lower extremity) Right lower extremity: knee Details: tenderness and swelling Assessment and Plan Assessment & Plan (1) Compression fracture of T9 vertebra: Code(s): S22.070A - Wedge compression fracture of T9-T10 vertebra, initial encounter for closed fracture Qualifiers: Encounter type: sequela Qualified Code(s): S22.070S - Wedge compression fracture of T9-T10 vertebra, sequela Plan: CTA of the chest done in February 2023 revealed (+) T9 vertebral compression fracture Patient has completed PT/OT/short term rehab with [facility] She continues to struggle with pain over her mid to lower back but states that she is managing Continue Tramadol 50 mg TID PRN and Cyclobenzaprine 5 mg TID PRN for pain (2) Lumbar degenerative disc disease: Code(s): M51.36 - Other intervertebral disc degeneration, lumbar region Plan: Reinforced activity and weight lifting restrictions Continue Cyclobenzaprine 5 mg TID as needed (3) Factor V deficiency: Code(s): 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 Plan: Continue Coumadin 10 mg QD as instructed per PT/INR results She continues to [facility] for her PT/INR monitoring and dosing (4) Cerebrovascular accident (CVA) due to thrombosis of left middle cerebral artery: Code(s): I63.312 - Cerebral infarction due to thrombosis of left middle cerebral artery Plan: S/P tPA and IR thrombectomy at [facility] in 11/2018 with very little residual neurologic deficit Follow-up with Neurology as scheduled (5) Nonrheumatic aortic (valve) stenosis: Code(s): I35.0 - Nonrheumatic aortic (valve) stenosis Plan: S/P TAVR at [facility] in [place] on 11/27/2018 - her cardiac symptoms have improved significantly since Cardiac catheterization done at [facility] prior to her TAVR came out normal Follow up with cardiology as scheduled for continuing management /surveillance (6) Status post transcatheter aortic valve replacement (TAVR) using bioprosthesis: Comment: surgery done at [facility] in [place] in 11/2018 Code(s): Z95.3 - Presence of xenogenic heart valve Plan: Follow up with cardiology as scheduled (7) Mitral valve annular calcification: Code(s): I05.9 - Rheumatic mitral valve disease, unspecified Plan: Resolved - S/P TAVR Follow up with cardiology as scheduled (8) Mixed hyperlipidemia: Code(s): E78.2 - Mixed hyperlipidemia Plan: Reinforced low cholesterol diet Continue Rosuvastatin 20 mg QD Will recheck her labs and fasting lipids in 4 months for follow up (9) Vitamin D deficiency: Code(s): E55.9 - Vitamin D deficiency, unspecified Plan: Continue Vitamin D3 2000 units QD (10) Osteoarthritis: Comment: Involving multiple joints Code(s): M19.90 - Unspecified osteoarthritis, unspecified site Qualifiers: Osteoarthritis location: unspecified site Osteoarthritis type: primary Qualified Code(s): M19.91 - Primary osteoarthritis, unspecified site Plan: Knee x-rays done back in March 2022 revealed (+) OA changes bilaterally, worse in the right knee Was seen by orthopedics and offered cortisone injection but patient declined; was advised to just call them if she changes her mind about this Follow up with orthopedics as scheduled/as needed (11) Edema: Code(s): R60.9 - Edema, unspecified Qualifiers: Edema type: unspecified Qualified Code(s): R60.9 - Edema, unspecified Plan: Especially of the right lower leg Will start patient on Furosemide 20 mg Q AM PRN for increased edema If her edema progresses, may need to consider repeat echocardiogram for further evaluation (12) Blurred vision, bilateral: Code(s): H53.8 - Other visual disturbances Plan: Will refer her to ophthalmology for further evaluation and management (13) Insomnia: Code(s): G47.00 - Insomnia, unspecified Qualifiers: Insomnia type: unspecified Qualified Code(s): G47.00 - Insomnia, unspecified Plan: Sleep hygiene discussed Will start patient on Trazodone 50 mg Q HS (14) Anxiety: Code(s): F41.9 - Anxiety disorder, unspecified Plan: Continue Lorazepam 0.5 mg every 8 hours as needed - Rx refilled (15) Smoker: Code(s): F17.200 - Nicotine dependence, unspecified, uncomplicated Plan: Counseled again on smoking cessation (16) Obesity (BMI 30-39.9): Code(s): E66.9 - Obesity, unspecified Plan: Reinforced diet; exercise and weight loss are limited and not realistic at this time due to her current back and ongoing joint issues Plan Follow up in 4 months Orders: Orders Complete Blood Count Auto Diff 4 Months D64.9 - Anemia, unspecified Comprehensive [place]. Panel Fast 4 Months E78.00 - Pure hypercholesterolemia, unspecified Lipid Panel 4 Months E78.00 - Pure hypercholesterolemia, unspecified UA CC w/rflx Micro + Cult 4 Months R30.0 - Dysuria TSH reflex Free T4 4 Months E78.00 - Pure hypercholesterolemia, unspecified Vitamin D 25-OH Total 4 Months E55.9 - Vitamin D deficiency, unspecified Vitamin B12 and Folate 4 Months E53.8 - Deficiency of other specified B group vitamins Referrals Ophthalmology Referral H54.7 - Unspecified visual loss Medications: New trazodone 50 mg PO BEDTIME PRN 90 tabs 0RF insomnia furosemide 20 mg PO QAM PRN 30 tabs 0RF increased swelling/edema Refilled lorazepam 0.5 mg PO Q8H PRN 90 tabs 1RF anxiety 30 days Coding Level of Care Code Est Pt Level 4 (65879) Diagnoses Compression fracture of T9 vertebra, sequela S22.070S Encounter type: sequela Lumbar degenerative disc disease M51.36 Factor V deficiency D68.2 Cerebrovascular accident (CVA) due to thrombosis of left middle cerebral artery I63.312 Nonrheumatic aortic (valve) stenosis I35.0 Status post transcatheter aortic valve replacement (TAVR) using bioprosthesis Z95.3 Mitral valve annular calcification I05.9 Mixed hyperlipidemia E78.2 Vitamin D deficiency E55.9 Primary osteoarthritis, unspecified site M19.91 Osteoarthritis location: unspecified site Osteoarthritis type: primary Edema, unspecified type R60.9 Edema type: unspecified Blurred vision, bilateral H53.8 Insomnia, unspecified type G47.00 Insomnia type: unspecified Anxiety F41.9 Smoker F17.200 Obesity (BMI 30-39.9) E66.9
== END 2023-07-22 15:05 | disposition home or self-care (01) ==
PROVIDERS: PCP Internal Medicine; Visit Provider Internal Medicine
DX: S22.070S Wedge compression fracture of T9-T10 vertebra, sequela (principal); M51.36 Other intervertebral disc degeneration, lumbar region; D68.2 Hereditary deficiency of other clotting factors; I63.312 Cerebral infarction due to thrombosis of left middle cerebral artery; I35.0 Nonrheumatic aortic (valve) stenosis; Z95.3 Presence of xenogenic heart valve; I05.9 Rheumatic mitral valve disease, unspecified; E78.2 Mixed hyperlipidemia; E55.9 Vitamin D deficiency, unspecified; M19.91 Primary osteoarthritis, unspecified site; R60.9 Edema, unspecified; H53.8 Other visual disturbances; G47.00 Insomnia, unspecified; F41.9 Anxiety disorder, unspecified; F17.200 Nicotine dependence, unspecified, uncomplicated; E66.9 Obesity, unspecified
CPT/HCPCS: 99214

== ENCOUNTER → 2023-07-25 10:49 | Outpatient (BNVA) | payer MEDICARE, OTHER, SELFPAY | PROVIDERS: PCP Internal Medicine; Visit Provider Internal Medicine ==

== ENCOUNTER → 2023-08-01 14:23 | Outpatient (BNVA) | payer MEDICARE, OTHER, SELFPAY | PROVIDERS: PCP Internal Medicine; Visit Provider Internal Medicine ==

== ENCOUNTER → 2023-08-08 14:20 | Outpatient (BNVA) | payer MEDICARE, OTHER, SELFPAY | PROVIDERS: PCP Internal Medicine; Visit Provider Internal Medicine ==

== ENCOUNTER → 2023-08-15 15:14 | Outpatient (BNVA) | payer MEDICARE, OTHER, SELFPAY | PROVIDERS: PCP Internal Medicine; Visit Provider Internal Medicine ==

== ENCOUNTER → 2023-08-22 13:42 | Outpatient (BNVA) | payer MEDICARE, OTHER, SELFPAY | PROVIDERS: PCP Internal Medicine; Visit Provider Internal Medicine ==

== ENCOUNTER → 2023-08-29 11:13 | Outpatient (BNVA) | payer MEDICARE, OTHER, SELFPAY | PROVIDERS: PCP Internal Medicine; Visit Provider Internal Medicine ==

== ENCOUNTER → 2023-09-05 14:05 | Outpatient (BNVA) | payer MEDICARE, OTHER, SELFPAY | PROVIDERS: PCP Internal Medicine; Visit Provider Internal Medicine ==

== ENCOUNTER → 2023-09-12 12:43 | Outpatient (BNVA) | payer MEDICARE, OTHER, SELFPAY | PROVIDERS: PCP Internal Medicine; Visit Provider Internal Medicine ==

== ENCOUNTER → 2023-09-17 14:54 | Outpatient (REF) | payer MEDICARE, OTHER, SELFPAY ==
--- NOTE | 2023-09-17 14:57 | CA_ITS ---
Transthoracic Echocardiogram Patient (Last, First, Middle): Yaneth Palmer A Gender: Female Date of : 1955 Age: 68 Procedure Date: 09/17/2023 Procedure Type: Transthoracic Echocardiogram Location: OP Height: 175. cm Weight: 104.33 kg BSA: 2.19 m2 Heart Rate: 94 bpm BP: 90 / 60 mmHg Sack Department Supervisor: DIAMANTE Referring MD: Saadia Mac SIGNAL MECHANICHussein Symptoms: Z95.3 - Presence of xenogenic heart valve Study Quality: Fair ECG Rhythm: Sinus Conclusions: - The left ventricular systolic function is normal. The calculated ejection fraction is 60% by biplane method. - A bioprosthetic aortic valve is present. The prosthetic aortic valve appears to be functioning normally. - Severe mitral annular calcification with possible calcific mitral stenosis. Findings Left Ventricle Normal left ventricular cavity size. There is normal left ventricular wall thickness. The left ventricular systolic function is normal. The calculated ejection fraction is 60% by biplane method. There is no evidence of regional wall motion abnormalities. Evidence suggests grade II (moderate) diastolic dysfunction. Right Ventricle Normal right ventricular cavity size and systolic function. Atria The left atrium is moderately dilated. The right atrium is normal in size. Aortic Valve A bioprosthetic aortic valve is present. The prosthetic aortic valve appears to be functioning normally. The mean gradient is 20 mmHg. There is no aortic valve regurgitation. Elevated gradients across aortic valve, but there is also increased stroke volume which may play a role. Less likely prosthetic valve dysfunction. Mitral Valve There is severe mitral annular calcification. There is no mitral valve regurgitation. Elevated gradients across the mitral valve which could suggest calcific mitral stenosis; however, high stroke volume can also cause high gradients. Pulmonic Valve The pulmonic valve was not well visualized. Tricuspid Valve Normal tricuspid valve structure. There is no tricuspid valve regurgitation. Tricuspid regurgitation envelope is inadequate for calculation of right ventricular systolic pressure. Great Vessels The asc aorta is normal in size. Venous The inferior vena cava is mildly dilated and collapses less than 50% with inspiration. Pericardium/Pleural There is no evidence of pericardial effusion. Prior Study Comparison No significant change compared to prior study dated: 02/12/2022. Measurements 2D Linear Measurements IVSd: 0.83 0.6-0.9/0.6-1.0 cm LVIDd: 4.57 3.9-5.3/4.2-5.9 cm LVIDd Index: 2.09 2.4-3.2/2.2-3.1 cm/m2 LVIDs: 2.70 2.0-3.6 cm LVPWd: 0.94 0.7-1.1 cm LA Diam: 4.10 2.7-3.8/3.0-4.0 cm LAIDs Index: 1.87 1.5-2.3 cm/m2 LV Mass: 166.65 67-162/88-224 g LV Mass Index: 76.10 43-95/49-115 g/m2 LVOT Diam: 2.40 3.0+(-)1.3 cm 2D Systolic Function EF 4C: 52.80 >55% EF 2C: 65.40 >55% EF BiP: 59.50 >55% Mitral Valve MV VTI: 0.55 MV Pk Brent: 2.16 MV Mn Brent: 1.61 MV Pk Grad: 19.00 MV Mn Grad: 11.00 MV Pk E: 1.96 MV PK A: 1.99 MV Decel Time: 191.00 E/A: 1.00 E'Lateral: 6.42 E'Medial: 4.24 E/E' Med: 46.20 E/E' Lat: 30.50 PHT: 56.00 MVA PHT: 3.93 MVA Continuity: 2.36 Decel [place]: 10.21 Aortic Valve AoV Pk Brent: 2.90 AoV Mn Brent: 2.12 AoV VTI: 0.58 AoV Pk Grad: 34.00 Aov Mn Grad: 20.00 JAMIE Cont.VTI: 2.22 LVOT LVOT Pk Brent: 1.38 LVOT Mn Brent: 1.07 LVOT VTI: 0.28 LVOT Pk Grad: 8.00 LVOT Mn Grad: 5.00 LVOT Diam: 2.40 LVOT Area: 4.52 Diastolic Function MV Pk E: 1.96 MV Pk A: 1.99 E/A: 1.00 E'Medial: 4.24 E/E' Med: 46.20 E' Laterial: 6.42 E/E' Lat: 30.50 Right Ventricle TAPSE (mm): 25.40 TVS' Brent: 15.70 Tricuspid Valve RA Press: 15.00 Great Vessels Aorta Sinus of Valsalva: 2.90 2.0-3.5 cm Ao Asc: 2.40 2.1-3.4 cm Pulmonary Valve PV Pk Brent: 1.05 Peak PV Grad: 4.00 Updated in Other Vendor System with Status of Final Jan Wilson MD electronically signed on 09/19/2023 10:21:23 AM with status of Final
== END ==
LOC: HO.CARD 14:54
PROVIDERS: PCP Internal Medicine; Visit Provider Nurse Practitioner Family
DX: I05.9 Rheumatic mitral valve disease, unspecified (principal); Z95.3 Presence of xenogenic heart valve
CPT/HCPCS: 93306

== ENCOUNTER → 2023-09-17 14:57 | Outpatient (BNV) | payer MEDICARE, OTHER, SELFPAY | PROVIDERS: PCP Internal Medicine; Visit Provider Internal Medicine | DX: I34.81 Nonrheumatic mitral (valve) annulus calcification (principal); Z95.3 Presence of xenogenic heart valve | CPT/HCPCS: 93306 ==

== ENCOUNTER → 2023-09-19 13:08 | Outpatient (BNVA) | payer MEDICARE, OTHER, SELFPAY | PROVIDERS: PCP Internal Medicine; Visit Provider Internal Medicine ==

== ENCOUNTER → 2023-09-26 14:46 | Outpatient (BNVA) | payer MEDICARE, OTHER, SELFPAY | PROVIDERS: PCP Internal Medicine; Visit Provider Internal Medicine ==

== ENCOUNTER 2023-09-30 13:16 | Outpatient (AMB) | payer MEDICARE, OTHER, SELFPAY ==
--- NOTE | 2023-09-30 13:36 | A.OFFVIS_ITS ---
Vital Signs 09/30/23 13:37 Height 5 ft 10 in Weight 244 lb 4.355 oz BMI 35.0 BP 121/66 Blood Pressure Location Rt brachial Position Sitting Pulse 89 Intake Visit Reasons: overdue follow up [employer] Required: No Allergies gabapentin Adverse Reaction (Unknown, Verified 09/30/23 13:40) GI upset/nausea/vomiting Medication List - Last Reconciled 09/30/23 by Saadia Mac NP-C acetaminophen 500 mg PO Q6H PRN 10 days acetaminophen mg PO Q6H PRN baclofen 20 mg PO TID PRN cholecalciferol (vitamin D3) 50 mcg PO DAILY 90 days furosemide 20 mg PO QAM PRN lorazepam 0.5 mg PO Q8H PRN 30 days rosuvastatin 20 mg PO DAILY trazodone 50 mg PO BEDTIME PRN warfarin 7.5 mg See Protocol PO DAILY HPI HPI overdue follow up : Details: Yaneth is a 68-year-old female with past medical history of hyperlipidemia, smoking, factor 5 deficiency, on Coumadin for anticoagulation, history of DVT, CVA, nonobstructive coronary artery disease, severe aortic stenosis status post TAVR, mitral annular calcification who presents for follow-up. Her last prior visit to our office was 02/26/2022. Today she reports that over the last few years she has been taking care of her ill . He recently from cancer. She is now trying to focus on her health and well-being. She admits to being mostly sedentary. She ambulates short distances with a cane. She has orthopedic issues as well as shortness of breath with activity. She denies PND, orthopnea. She will get mild leg edema at times. No chest discomfort at rest or with activity. No heart palpitations, lightheadedness, presyncope, syncope, falls. Taking meds as directed. [facility] Medical History (Updated 09/30/23 @ 18:08 by Saadia Mac NP-C) Osteoarthritis Vitamin D deficiency Smoker Mitral valve annular calcification Obesity (BMI 30-39.9) Anxiety Mixed hyperlipidemia Factor V deficiency Lumbar degenerative disc disease Cerebrovascular accident (CVA) due to thrombosis of left middle cerebral artery Nonrheumatic aortic (valve) stenosis Surgical History (Updated 09/30/23 @ 18:08 by ERICA LingC) History of CVA (cerebrovascular accident) Aortic valve replaced History of cardiac catheterization Family History Father No problems noted. 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 Cognitive needs: No Hearing needs: No Vision needs: No Review of Systems Const All systems reviewed & are unremarkable except as noted in HPI and below Reports fatigue ENT Denies dizziness Card Denies chest pain, Denies chest pain at rest, Denies chest pain with activity, Denies rapid heart rate, Denies pedal edema, Denies edema, Denies leg edema, Denies lightheadedness, Denies palpitations, Denies dyspnea, Denies dyspnea on exertion and Denies orthopnea Resp Denies cough, Denies dyspnea and Denies dyspnea on exertion GI Denies hematochezia and Denies change in stool character Musc Details: uses cane for balance Reports abnormal gait, Denies limited range of motion, Denies muscle cramps, Denies muscle weakness, Denies numbness, Denies radiating pain into limb, Denies stiffness and Denies tingling Neuro Reports abnormal gait, Denies dizziness, Denies numbness and Denies tingling Endo Reports fatigue and Denies palpitations Physical Exam Vital Signs: Last Vital Signs Pulse 89 09/30/23 13:37 BP 121/66 09/30/23 13:37 BMI result Body Mass Index 35.0 Const General: cooperative, healthy appearing, comfortable and no acute distress Orientation/consciousness: patient oriented x3 Neck Neck: Yes normal visual inspection and Yes no JVD Resp Effort & Inspection: normal respiratory effort Auscultation: clear to auscultation bilaterally, no rales, no rhonchi and no wheezes Cardio Jugular venous distension: no JVD Rate: regular rate Rhythm: regular rhythm Heart sounds: S1 normal heart sound present, S2 normal heart sound present, no murmurs and no rubs Peripheral pulses: Peripheral pulses 2+ throughout Skin General skin exam: no rashes or lesions noted Neuro General: patient oriented x3 Extrem General: Yes normal to inspection, No no pedal edema and No calf tenderness Psych Appearance: grossly normal Mental Status: mental status grossly normal Speech and movement: Normal speech and movement present Office Procedures EKG Details: Today, read by me, normal sinus rhythm, no acute ST or T-wave abnormalities, rate 85, QTC 423 millisecond [id number], Complete Assessment & Plan Assessment & Plan (1) Status post transcatheter aortic valve replacement (TAVR) using bioprosthesis: Comment: surgery done at [facility] in [place] in 11/2018 Code(s): Z95.3 - Presence of xenogenic heart valve Category: Surgical Plan: History of severe aortic stenosis. TAVR procedure performed 11/2018. Last echocardiogram done 09/17/2023 showing EF 60%, bioprosthetic AVR functioning normally, severe mitral annular calcification, possible MS, overall no significant change from 02/12/2022. Echo results reviewed with her in detail. No aortic murmur noted on examination. She does not need endocarditis prophylaxis prior to dental work as she has no teeth. Will plan for repeat echo in 1 year. Cardiology follow-up 1 year, sooner if needed. (2) Mitral valve annular calcification: Code(s): I05.9 - Rheumatic mitral valve disease, unspecified Category: Medical Plan: Recent echo with severe mitral annular calcification, possible mitral stenosis, overall no significant change since echo in 2021. Difficult to assess for mitral murmur at this time due to obesity. No clinical signs of heart failure on examination. She does have shortness of breath with activity which is not new. She does admit to being sedentary. Will plan for repeat echo in 1 year to re-evaluate aortic and mitral valves. (3) CAD (coronary artery disease): Code(s): I25.10 - Atherosclerotic heart disease of kaw coronary artery without angina pectoris Category: Medical Plan: History of non obstructive coronary artery disease as identified at time of TAVR procedure in 2019. She has no chest discomfort at rest or with activity. EKG done today showing normal sinus rhythm with no acute ST or T-wave abnormalities, rate 81. She is not on aspirin as she is on Coumadin. She is on rosuvastatin with ideal LDL goal less than 70. Labs done 03/04/2023 shows LDL 67, normal LFT. (4) Factor V deficiency: Code(s): 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 Category: Medical Plan: On Coumadin for anticoagulation. Does INRs on her own at home. (5) Current use of anticoagulant therapy: Code(s): Z79.01 - adjunct faculty for medical terminology (current) use of anticoagulants Category: Medical Plan: On Coumadin for factor 5 deficiency. She has no known history atrial fibrillation Plan Time spent on chart review, documentation, interview and assessment Coding Level of Care Code Est Pt Level 4 (19629) Diagnoses Status post transcatheter aortic valve replacement (TAVR) using bioprosthesis Z95.3 Mitral valve annular calcification I05.9 CAD (coronary artery disease) I25.10 Factor V deficiency D68.2 Current use of anticoagulant therapy Z79.01 CPT Codes EKG - CPT: 73506-[id number], Complete ([id number]) Time Spent (min) 28
[2023-09-30 13:37] VITALS: BP 121/66; PULSE 89; BMI 35.0
== END 2023-09-30 14:10 | disposition home or self-care (01) ==
PROVIDERS: PCP Internal Medicine; Visit Provider Nurse Practitioner Family
DX: Z95.3 Presence of xenogenic heart valve (principal); I05.9 Rheumatic mitral valve disease, unspecified; I25.10 Atherosclerotic heart disease of native coronary artery without angina pectoris; D68.2 Hereditary deficiency of other clotting factors; Z79.01 Long term (current) use of anticoagulants
CPT/HCPCS: 93010; 99214

== ENCOUNTER → 2023-09-30 13:16 | Outpatient (BNVA) | payer MEDICARE, OTHER, SELFPAY | PROVIDERS: PCP Internal Medicine; Visit Provider Nurse Practitioner Family | DX: I05.9 Rheumatic mitral valve disease, unspecified (principal); I25.10 Atherosclerotic heart disease of native coronary artery without angina pectoris; D68.2 Hereditary deficiency of other clotting factors; Z86.73 Personal history of transient ischemic attack (TIA), and cerebral infarction without residual deficits; Z95.3 Presence of xenogenic heart valve; Z86.718 Personal history of other venous thrombosis and embolism; Z79.01 Long term (current) use of anticoagulants | CPT/HCPCS: 93005; 99212 ==

== ENCOUNTER → 2023-10-03 14:42 | Outpatient (BNVA) | payer MEDICARE, OTHER, SELFPAY | PROVIDERS: PCP Internal Medicine; Visit Provider Internal Medicine ==

== ENCOUNTER → 2023-10-10 14:51 | Outpatient (BNVA) | payer MEDICARE, OTHER, SELFPAY | PROVIDERS: PCP Internal Medicine; Visit Provider Internal Medicine ==

== ENCOUNTER 2023-10-14 09:38 | Outpatient (REF) | payer MEDICARE, OTHER, SELFPAY ==
--- NOTE | ~2023-10-14 | XR_ITS ---
EXAMINATION: XR KNEE, RIGHT CLINICAL INFORMATION: Pain in unspecified knee. COMPARISON: 03/23/2022. TECHNIQUE: AP standing view of bilateral knees. Lateral and sunrise views of the right knee. FINDINGS: RIGHT KNEE: Bones are diffusely demineralized. Trace joint effusion. Vascular calcifications. Tiny tricompartmental osteophytes. Moderate narrowing of the lateral compartment. Mild narrowing of the medial compartment. AP STANDING VIEW LEFT KNEE: [id number] narrowing of the medial and lateral compartments with tiny marginal osteophytes. Bones are diffusely demineralized. XR/XR knee RT 3V IMPRESSION: [id number] degenerative changes bilateral knees.
== END 2023-10-14 09:39 | disposition home or self-care (01) ==
LOC: HO.HOSX 09:38
PROVIDERS: Visit Provider Physician Assistant
DX: M17.11 Unilateral primary osteoarthritis, right knee (principal)
CPT/HCPCS: 20610; 73562; 99212; J1010

== ENCOUNTER 2023-10-14 12:58 | Outpatient (AMB) | payer MEDICARE, OTHER, SELFPAY ==
--- NOTE | 2023-10-14 13:06 | A.OFFVIS_ITS ---
Intake Visit Reasons: ov- RT Knee OA Intake Note: Yaneth is a 68 year old female who presents today for a follow up of her right knee OA. Patient reports her pain is around the same from her last visit. She states that she had a trip where she was walking for a long period of time which made her pain worse and noticed some swelling. Patient wants to repeat her last injection. She tried and failed wearing her knee brace. Allergies gabapentin Adverse Reaction (Unknown, Verified 10/14/23 13:16) GI upset/nausea/vomiting HPI HPI ov- RT Knee OA: Details: 68-year-old female who presents in the office today for a follow-up of right knee osteoarthritis. I last saw her on 11/29/2022 when she received a cortisone injection. While in the office today, patient reports no changes in her pain as compared to the last visit. She took a recent trip where she was ambulating for a long period of time which caused an increase in her pain and mild edema. She would like to have a repeat cortisone injection today. She has tried and failed to get relief with the use of a knee brace. [facility] Medical History (Updated 09/30/23 @ 18:08 by Saadia Mac NP-C) Osteoarthritis Vitamin D deficiency Smoker Mitral valve annular calcification Obesity (BMI 30-39.9) Anxiety Mixed hyperlipidemia Factor V deficiency Lumbar degenerative disc disease Cerebrovascular accident (CVA) due to thrombosis of left middle cerebral artery Nonrheumatic aortic (valve) stenosis Surgical History (Updated 09/30/23 @ 18:08 by Saadia Mac, MALLIKA-C) History of CVA (cerebrovascular accident) Aortic valve replaced History of cardiac catheterization Family History Father No problems noted. 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 No ecchymosis, erythema, or joint effusion. No tenderness to palpation to the medial or lateral joint lines. Full knee extension and flexion. Crepitus with ROM. Negative Matt's. NVI. Office Procedures Joint Injection/Drain Joint Injection/Drain Primary Site: right knee Prep: site was prepped using aseptic technique, site was prepped using sterile technique and injection warnings given Injected: 80 mg of, DepoMedrol, with 8 mL of (2% plain lido ) and in the joint Approach Used: anterolateral Procedure: The patient tolerated the procedure well, but had some pain with the injection and there was some relief with the local anesthesia Coding 70662 - Large joint Procedure code (CPT) selection complete Assessment & Plan Assessment & Plan (1) Osteoarthritis of right knee: Code(s): M17.11 - Unilateral primary osteoarthritis, right knee Category: Medical Plan Ms. Georgette Palmer is a 68-year-old female who presents in the office today for a follow-up of right knee osteoarthritis. I last saw her on 11/29/2022 when she received a cortisone injection. While in the office today, patient reports no changes in her pain as compared to the last visit. She took a recent trip where she was ambulating for a long period of time which caused an increase in her pain and mild edema. She would like to have a repeat cortisone injection today. She has tried and failed to get relief with the use of a knee brace. The patient was offered a cortisone injection in the right knee with 80 mg of DepoMedrol. The patient was explained the risk, benefits, and alternatives to receiving this injection. After receiving consent for the injection, the patient had the procedure done while in the office today. The patient tolerated the procedure well with no complications.? Follow up will be PRN, or sooner if needed. X-rays of the right knee which were obtained while in the office today and were reviewed by me, Jeaneth Walker PA-C, redemonstrated right knee osteoarthritis. Orders: Orders XR knee RT 3V 10/14/23 M25.569 - Pain in unspecified knee Patient Instructions: Scribed by chichi Cassidy Rai for Jeaneth AYERS-Raúl on at 12:55 p.m. EST. Scribe Plan - Not visible on output: Scribed by chichi Cassidy Rai for Jeaneth AYERS-C on at 12:55 p.m. EST. Coding Level of Care Code Est Pt Level 3 (00909) Diagnoses Osteoarthritis of right knee M17.11 CPT Codes Coding - 65953 Large joint: 31503 - Large joint ([id number])
== END 2023-10-14 13:38 | disposition home or self-care (01) ==
PROVIDERS: PCP Internal Medicine; Visit Provider Physician Assistant
DX: M17.11 Unilateral primary osteoarthritis, right knee (principal)
CPT/HCPCS: 20610; 99213

== ENCOUNTER → 2023-10-17 11:33 | Outpatient (BNVA) | payer MEDICARE, OTHER, SELFPAY | PROVIDERS: PCP Internal Medicine; Visit Provider Internal Medicine ==

== ENCOUNTER → 2023-10-24 12:58 | Outpatient (BNVA) | payer MEDICARE, OTHER, SELFPAY | PROVIDERS: PCP Internal Medicine; Visit Provider Internal Medicine ==

== ENCOUNTER → 2023-10-31 13:31 | Outpatient (BNVA) | payer MEDICARE, OTHER, SELFPAY | PROVIDERS: PCP Internal Medicine; Visit Provider Internal Medicine ==

== ENCOUNTER → 2023-11-07 12:57 | Outpatient (BNVA) | payer MEDICARE, OTHER, SELFPAY | PROVIDERS: PCP Internal Medicine; Visit Provider Internal Medicine ==

== ENCOUNTER → 2023-11-14 13:50 | Outpatient (BNVA) | payer MEDICARE, OTHER, SELFPAY | PROVIDERS: PCP Internal Medicine; Visit Provider Internal Medicine ==

== ENCOUNTER → 2023-11-21 11:49 | Outpatient (BNVA) | payer MEDICARE, OTHER, SELFPAY | PROVIDERS: PCP Internal Medicine; Visit Provider Internal Medicine ==

== ENCOUNTER → 2023-11-28 11:51 | Outpatient (BNVA) | payer MEDICARE, OTHER, SELFPAY | PROVIDERS: PCP Internal Medicine; Visit Provider Internal Medicine ==

== ENCOUNTER → 2023-12-04 13:26 | Outpatient (BNVA) | payer MEDICARE, OTHER, SELFPAY | PROVIDERS: PCP Internal Medicine; Visit Provider Internal Medicine ==

== ENCOUNTER → 2023-12-12 13:41 | Outpatient (BNVA) | payer MEDICARE, OTHER, SELFPAY | PROVIDERS: PCP Internal Medicine; Visit Provider Internal Medicine ==

== ENCOUNTER → 2023-12-19 12:59 | Outpatient (BNVA) | payer MEDICARE, OTHER, SELFPAY | PROVIDERS: PCP Internal Medicine; Visit Provider Internal Medicine ==

== ENCOUNTER → 2023-12-26 13:52 | Outpatient (BNVA) | payer MEDICARE, OTHER, SELFPAY | PROVIDERS: PCP Internal Medicine; Visit Provider Internal Medicine ==

== ENCOUNTER 2024-01-02 09:13 | Outpatient (AMB) | payer MEDICARE, OTHER, SELFPAY ==
--- NOTE | 2024-01-02 09:09 | MHC.PC.OV ---
Vital Signs 01/02/24 09:12 Height 5 ft 10 in Weight 242 lb 8.136 oz BMI 34.8 Intake Visit Reasons: 4m f/u Allergies gabapentin Adverse Reaction (Unknown, Verified 01/02/24 10:17) GI upset/nausea/vomiting Medication List - Last Reconciled 01/02/24 by Abdias Trotter MD acetaminophen 500 mg PO Q6H PRN 10 days baclofen 20 mg PO TID PRN cholecalciferol (vitamin D3) 50 mcg PO DAILY 90 days furosemide 20 mg PO QAM PRN lorazepam 0.5 mg PO Q8H PRN 30 days rosuvastatin 20 mg PO DAILY trazodone 50 mg PO BEDTIME PRN warfarin 7.5 mg See Protocol PO DAILY Tobacco use date assessed: 07/22/23 Fall risk assessment: No Falls in past year Last assessed Fall Risk: 01/02/24 Dental Screening Dental Screen Date: 07/22/23 HPI 4m f/u HPI Details Patient's follow-up visit / consultation today is done over the phone - this is a Telehealth visit Patient's current medications have been reviewed and verified with patient and / or caregiver / proxy and have been updated accordingly in the medication list Patient states that her life has changed significantly since her recently Relates that she has been feeling very weak and exhausted lately and has also noticed increased SOB on exertion/ALEGRE Recalls that she felt very dizzy when she woke up yesterday and noticed on her pulse oximeter that her HR was around 132/min; oxygen was at 96% She called 911 and EMS subsequently brought her to the ER at [facility], where she was supposedly worked up for blood clots Was told that her CT head came out normal; CXR was also normal U/A - prelim negative; C/S pending; all other labs were normal as well She currently denies any headaches; still has on and off dizziness Denies any exertional chest pains No vomiting but (+) occasional nausea; no abdominal pain No change in bowel habits noted Needs her Lorazepam Rx refilled States that she also had her follow up labs done at [facility] a couple of days ago on 12/29 - thinks that they now uses [facility] instead of [facility] Adds that she wants to try Ozempic to help her lose weight - states that she can get it online nowadays for about $99 PFSH Medical History Osteoarthritis Vitamin D deficiency Smoker Mitral valve annular calcification Obesity (BMI 30-39.9) Anxiety Mixed hyperlipidemia Factor V deficiency Lumbar degenerative disc disease Cerebrovascular accident (CVA) due to thrombosis of left middle cerebral artery Nonrheumatic aortic (valve) stenosis Surgical History History of CVA (cerebrovascular accident) Aortic valve replaced History of cardiac catheterization Family History Father No problems noted. 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 Dave Nelson, Rosa Scherer, Alex Mandujano and colleagues, with an educational melissa from [employer]. Review of Systems Const Denies chills, Reports fatigue, Denies fever(s), Denies headache(s), Reports poor appetite and Reports weakness ENT Denies dysphagia, Reports dizziness (occasionally lately), Denies otalgia, Denies headache(s), Denies neck pain, Denies odynophagia and Denies sore throat Card Denies chest pain, Reports rapid heart rate (at times), Denies palpitations and Reports dyspnea on exertion (increasing lately) Resp Denies cough, Reports dyspnea on exertion (increasing lately) and Denies wheezing GI Denies abdominal pain, Denies constipation, Denies dysphagia, Denies heartburn, Denies diarrhea, Reports nausea (on and off ), Denies odynophagia and Denies vomiting Denies difficulty voiding, Denies nocturia, Denies dysuria and Denies urinary urgency Musc Reports back pain (increased over the past couple of months - see HPI), Reports arthralgias (right knee, on and off), Reports joint swelling (right knee, on and off), Denies neck pain and Reports radiating pain into limb (into both legs) Skin/Breast Denies rash Neuro Reports dizziness (occasionally lately), Denies headache(s) and Reports weakness Psych Reports anxiety and Denies depression Endo Reports fatigue and Denies palpitations Fransisco/Lymph Denies easy bruising Aller/Immun Denies wheezing Physical exam (Primary Care) Vital Signs: Physical examination is not performed as visit / consultation today is done over the phone - Telehealth visit All physical findings indicated here, if present, are as per patient's and / or caregivers / proxy's report BMI result Body Mass Index 34.8 Tobacco/Smoking Status: Tobacco use Status Tobacco use date assessed 07/22/23 01/02/24 09:10 Patient Tobacco Use Status Current everyday Tobacco 01/02/24 09:10 e-Cigarette/Vaping Use Never Used 01/02/24 09:10 Thrive Assessment: Date of Thrive Assessment Date Thrive assessed 07/22/23 01/02/24 09:10 Results AMB INR Fingerstick AMB INR Fingerstick 2.4 Last Edit by Crista Myers RN on 01/02/24 10:20 Telehealth Telehealth Telehealth Platform: Telephone Location of provider rendering services: practice address Location of patient: address on file Patient Identification confirmed using: Name, : Yes Telehealth method: voice only Patient verbally consented to treatment: Yes Patient verbally consented to billing insurance company: Yes Patient informed of any privacy concerns related to visit: Yes Minutes spent on Phone/Video with Pt.: 23 Assessment and Plan Assessment & Plan (1) Exertional dyspnea: Code(s): R06.09 - Other forms of dyspnea Plan: Patient reports experiencing increasing exertional dyspnea and weakness recently - thinks that these may be due to her weight She was reportedly brought to the ER at [facility] a couple of days ago when she woke up feeling very dizzy and noted that her HR was around 132 bpm Was advised that her labs done at the ER came back normal then She also supposedly has head CT and chest x-rays done that were reportedly normal/negative and states that they checked her out for blood clots, which also came back negative Her most recent echocardiogram done in September 2023 revealed severe mitral annular calcification with possible calcific mitral stenosis. The left ventricular systolic function is normal. The calculated ejection fraction is 60% by biplane method. A bioprosthetic aortic valve is present. The prosthetic a aortic valve appears to be functioning normally Due to her recent increasing ALEGRE, will go ahead and send her for a repeat echocardiogram [place] for further evaluation Will also try to track down the results of her follow up labs done at [facility] a couple of days ago (2) Nonrheumatic aortic (valve) stenosis: Code(s): I35.0 - Nonrheumatic aortic (valve) stenosis Plan: S/P TAVR at [facility] in [place] on 11/27/2018 - her cardiac symptoms have improved significantly since Cardiac catheterization done at [facility] prior to her TAVR came out normal Her most recent echocardiogram done in September 2023 revealed severe mitral annular calcification with possible calcific mitral stenosis. The left ventricular systolic function is normal. The calculated ejection fraction is 60% by biplane method. A bioprosthetic aortic valve is present. 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 Plan: Continue Coumadin 10 mg QD as instructed per PT/INR results Her INR done earlier today was at 2.4 (5) Cerebrovascular accident (CVA) due to thrombosis of left middle cerebral artery: Code(s): I63.312 - Cerebral infarction due to thrombosis of left middle cerebral artery Plan: S/P tPA and IR thrombectomy at [facility] in 11/2018 with very little residual neurologic deficit Follow-up with Neurology as scheduled (6) Mixed hyperlipidemia: Code(s): E78.2 - Mixed hyperlipidemia Plan: Will try to follow up on the results of her labs supposedly done at [facility] a couple of days ago Reinforced low cholesterol diet Continue Rosuvastatin 20 mg QD Will recheck her labs and fasting lipids in 4 months for follow up (7) Compression fracture of T9 vertebra: Code(s): S22.070A - Wedge compression fracture of T9-T10 vertebra, initial encounter for closed fracture Qualifiers: Encounter type: sequela Qualified Code(s): S22.070S - Wedge compression fracture of T9-T10 vertebra, sequela Plan: CTA of the chest done in February 2023 revealed (+) T9 vertebral compression fracture Patient has completed PT/OT/short term rehab with [facility] She continues to struggle with pain over her mid to lower back but states that she has been managing her pain Continue Tramadol 50 mg TID PRN and Cyclobenzaprine 5 mg TID PRN for pain (8) Lumbar degenerative disc disease: Code(s): M51.36 - Other intervertebral disc degeneration, lumbar region Plan: Reinforced activity and weight lifting restrictions Continue Cyclobenzaprine 5 mg TID as needed (9) Vitamin D deficiency: Code(s): E55.9 - Vitamin D deficiency, unspecified Plan: Continue Vitamin D3 2000 units QD (10) Osteoarthritis: Comment: Involving multiple joints Code(s): M19.90 - Unspecified osteoarthritis, unspecified site Qualifiers: Osteoarthritis location: unspecified site Osteoarthritis type: primary Qualified Code(s): M19.91 - Primary osteoarthritis, unspecified site Plan: Knee x-rays done back in March 2022 revealed (+) OA changes bilaterally, worse in the right knee She was seen by orthopedics and offered cortisone injection but patient declined; was advised to just call them if she changes her mind about this Follow up with orthopedics as scheduled/as needed (11) Anxiety: Code(s): F41.9 - Anxiety disorder, unspecified Plan: Continue Lorazepam 0.5 mg every 8 hours as needed - Rx refilled (12) Smoker: Code(s): F17.200 - Nicotine dependence, unspecified, uncomplicated Plan: Counseled again on smoking cessation (13) Obesity (BMI 30-39.9): Code(s): E66.9 - Obesity, unspecified Plan: Reinforced diet; exercise and weight loss are limited and not realistic at this time due to her current back and ongoing joint issues She has expressed her intention to start using Ozempic to help her lose weight - states that she will be able to get this online for about $99 Have advised patient to hold off on this for now until we get her echocardiogram done and her recent symptoms checked out further Plan Follow up in 4 months Orders: Orders Comprehensive [place]. Panel Fast 4 Months E78.00 - Pure hypercholesterolemia, unspecified Lipid Panel 4 Months E78.00 - Pure hypercholesterolemia, unspecified TSH reflex Free T4 4 Months E78.00 - Pure hypercholesterolemia, unspecified UA CC w/rflx Micro + Cult 4 Months R30.0 - Dysuria CA echo transthoracic complete Today R06.09 - Other forms of dyspnea Complete Blood Count Auto Diff 4 Months D64.9 - Anemia, unspecified Vitamin D 25-OH Total 4 Months E55.9 - Vitamin D deficiency, unspecified Medications: Refilled lorazepam 0.5 mg PO Q8H 30 days PRN 90 tabs 1RF anxiety Coding Level of Care Code Tele Est Pt Level 4 (96778) Diagnoses Exertional dyspnea R06.09 Nonrheumatic aortic (valve) stenosis I35.0 Status post transcatheter aortic valve replacement (TAVR) using bioprosthesis Z95.3 Factor V deficiency D68.2 Cerebrovascular accident (CVA) due to thrombosis of left middle cerebral artery I63.312 Mixed hyperlipidemia E78.2 Compression fracture of T9 vertebra, sequela S22.070S Encounter type: sequela Lumbar degenerative disc disease M51.36 Vitamin D deficiency E55.9 Primary osteoarthritis, unspecified site M19.91 Osteoarthritis location: unspecified site Osteoarthritis type: primary Anxiety F41.9 Smoker F17.200 Obesity (BMI 30-39.9) E66.9
[2024-01-02 09:12] VITALS: BMI 34.8
== END 2024-01-02 10:39 | disposition home or self-care (01) ==
LOC: HO.HMGH 09:13
PROVIDERS: PCP Internal Medicine; Visit Provider Internal Medicine
DX: R06.09 Other forms of dyspnea (principal); I35.0 Nonrheumatic aortic (valve) stenosis; Z95.3 Presence of xenogenic heart valve; D68.2 Hereditary deficiency of other clotting factors; E78.2 Mixed hyperlipidemia; S22.070S Wedge compression fracture of T9-T10 vertebra, sequela; M51.36 Other intervertebral disc degeneration, lumbar region; E55.9 Vitamin D deficiency, unspecified; M19.91 Primary osteoarthritis, unspecified site; F41.9 Anxiety disorder, unspecified; F17.200 Nicotine dependence, unspecified, uncomplicated; E66.9 Obesity, unspecified
CPT/HCPCS: 99443

== ENCOUNTER → 2024-01-02 09:48 | Outpatient (BNVA) | payer MEDICARE, OTHER, SELFPAY | PROVIDERS: PCP Internal Medicine; Visit Provider Internal Medicine ==

== ENCOUNTER → 2024-01-09 14:27 | Outpatient (BNVA) | payer MEDICARE, OTHER, SELFPAY | PROVIDERS: PCP Internal Medicine; Visit Provider Internal Medicine ==

== ENCOUNTER → 2024-01-16 14:45 | Outpatient (BNVA) | payer MEDICARE, OTHER, SELFPAY | PROVIDERS: PCP Internal Medicine; Visit Provider Internal Medicine ==

== ENCOUNTER → 2024-01-24 13:51 | Outpatient (REF) | payer MEDICARE, OTHER, SELFPAY ==
--- NOTE | 2024-01-24 13:53 | CA_ITS ---
Transthoracic Echocardiogram Patient (Last, First, Middle): Yaneth Palmer A Gender: Female Date of : 1955 Age: 68 Procedure Date: 01/24/2024 Procedure Type: Transthoracic Echocardiogram Location: OP Height: 175.26 cm Weight: 109.77 kg BSA: 2.24 m2 Heart Rate: 78 bpm BP: 100 / 58 mmHg Cake Tester: MIKAELA Referring MD: Abdias Trotter MD Symptoms: R06.09 - Other forms of dyspnea Study Quality: Fair ECG Rhythm: Sinus Conclusions: - Normal left ventricular size, thickness, systolic function, and wall motion. The visually estimated ejection fraction is between 55-60%. - Normal right ventricular cavity size and systolic function. - A bioprosthetic aortic valve is present. There is mild aortic valve stenosis. There is no aortic valve regurgitation. - There is severe mitral annular calcification. Findings Procedure Information The quality of the study was technically difficult. The study quality is limited by the patients inability to tolerate the test, patients body habitus, and lung artifact. Left Ventricle Normal left ventricular size, thickness, systolic function, and wall motion. The visually estimated ejection fraction is between 55-60%. Diastolic function is indeterminate on the basis of available data. Right Ventricle Normal right ventricular cavity size and systolic function. Atria The left atrium is moderately dilated. Aortic Valve A bioprosthetic aortic valve is present. There is mild aortic valve stenosis. There is no aortic valve regurgitation. Mitral Valve There is severe mitral annular calcification. There is no mitral valve regurgitation. Pulmonic Valve The pulmonic valve was not well visualized. Tricuspid Valve Normal tricuspid valve structure. There is no tricuspid valve regurgitation. Tricuspid regurgitation envelope is inadequate for calculation of right ventricular systolic pressure. Normal right atrial pressure. Great Vessels The aorta was not well visualized. Venous The inferior vena cava is normal in size and collapses greater than 50% with inspiration. Pericardium/Pleural There is no evidence of pericardial effusion. Prior Study Comparison No significant change compared to prior study dated: 09/17/2023. Measurements 2D Linear Measurements IVSd: 1.11 0.6-0.9/0.6-1.0 cm LVIDd: 3.87 3.9-5.3/4.2-5.9 cm LVIDd Index: 1.73 2.4-3.2/2.2-3.1 cm/m2 LVIDs: 3.08 2.0-3.6 cm LVPWd: 0.77 0.7-1.1 cm LV Mass: 137.54 67-162/88-224 g LV Mass Index: 61.40 43-95/49-115 g/m2 LVOT Diam: 1.80 3.0+(-)1.3 cm 2D Systolic Function EF 4C: 51.60 >55% EF 2C: 58.40 >55% EF BiP: 54.30 >55% Mitral Valve MV VTI: 0.53 MV Pk Brent: 1.70 MV Mn Brent: 1.32 MV Pk Grad: 12.00 MV Mn Grad: 8.00 MV Pk E: 1.57 MV PK A: 1.72 MV Decel Time: 419.00 E/A: 0.90 E'Lateral: 4.46 E'Medial: 3.92 E/E' Med: 40.10 E/E' Lat: 35.20 PHT: 123.00 MVA PHT: 1.79 MVA Continuity: 0.92 Decel Walton: 3.74 Aortic Valve AoV Pk Brent: 2.42 AoV Mn Brent: 1.67 AoV VTI: 0.51 AoV Pk Grad: 24.00 Aov Mn Grad: 13.00 JAMIE Cont.VTI: 0.95 LVOT LVOT Pk Brent: 0.87 LVOT Mn Brent: 0.62 LVOT VTI: 0.19 LVOT Pk Grad: 3.00 LVOT Mn Grad: 2.00 LVOT Diam: 1.80 LVOT Area: 2.54 Diastolic Function MV Pk E: 1.57 MV Pk A: 1.72 E/A: 0.90 E'Medial: 3.92 E/E' Med: 40.10 E' Laterial: 4.46 E/E' Lat: 35.20 Right Ventricle TAPSE (mm): 23.10 TVS' Brent: 13.20 Tricuspid Valve RA Press: 3.00 Pulmonary Valve PV Pk Brent: 0.79 Peak PV Grad: 3.00 Updated in Other Vendor System with Status of Final Myron Gentile MD electronically signed on 01/26/2024 11:04:59 PM with status of Final
== END ==
LOC: HO.CARD 13:51
PROVIDERS: PCP Internal Medicine; Visit Provider Internal Medicine
DX: R06.09 Other forms of dyspnea (principal)
CPT/HCPCS: 93306

== ENCOUNTER → 2024-01-24 13:53 | Outpatient (BNV) | payer MEDICARE, OTHER, SELFPAY | PROVIDERS: PCP Internal Medicine; Visit Provider Internal Medicine Cardiovascular Disease | DX: T82.857A Stenosis of other cardiac prosthetic devices, implants and grafts, initial encounter (principal); I34.81 Nonrheumatic mitral (valve) annulus calcification | CPT/HCPCS: 93306 ==

== ENCOUNTER → 2024-01-30 14:01 | Outpatient (BNVA) | payer MEDICARE, OTHER, SELFPAY | PROVIDERS: PCP Internal Medicine; Visit Provider Internal Medicine ==

== ENCOUNTER → 2024-02-07 10:34 | Outpatient (BNVA) | payer MEDICARE, OTHER, SELFPAY | PROVIDERS: PCP Internal Medicine; Visit Provider Internal Medicine ==

== ENCOUNTER → 2024-02-13 13:42 | Outpatient (BNVA) | payer MEDICARE, OTHER, SELFPAY | PROVIDERS: PCP Internal Medicine; Visit Provider Internal Medicine ==

== ENCOUNTER → 2024-02-20 13:59 | Outpatient (BNVA) | payer MEDICARE, OTHER, SELFPAY | PROVIDERS: PCP Internal Medicine; Visit Provider Internal Medicine ==

== ENCOUNTER → 2024-02-27 10:56 | Outpatient (BNVA) | payer MEDICARE, OTHER, SELFPAY | PROVIDERS: PCP Internal Medicine; Visit Provider Internal Medicine ==

== ENCOUNTER 2024-03-03 14:59 | Outpatient (AMB) | payer MEDICARE, OTHER, SELFPAY ==
--- NOTE | 2024-03-03 15:04 | A.OFFVIS_ITS ---
Intake Visit Reasons: Inj- RT knee OA, last inj 10/14/23 Intake Note: Yaneth is a 68 year old female who presents today for a repeat injection for her right knee. Patient states that her last injection lasted her about 2 weeks. She mentions that she notices some swelling in her right knee knee Allergies gabapentin Adverse Reaction (Unknown, Verified 03/03/24 15:15) GI upset/nausea/vomiting HPI HPI Inj- RT knee OA, last inj 10/14/23: Details: 68-year-old female who presents in the office today for a follow-up of a right knee osteoarthritis. I last saw the patient on 10/14/23 when she was given a cortisone injection in the right knee. While in the office today, the patient reports her last cortisone injection provided her 2 weeks of relief. She would like to have a repeat injection today. She mentions that she notices mild edema in the right knee. [facility] Medical History Osteoarthritis Vitamin D deficiency Smoker Mitral valve annular calcification Obesity (BMI 30-39.9) Anxiety Mixed hyperlipidemia Factor V deficiency Lumbar degenerative disc disease Cerebrovascular accident (CVA) due to thrombosis of left middle cerebral artery Nonrheumatic aortic (valve) stenosis Surgical History History of CVA (cerebrovascular accident) Aortic valve replaced History of cardiac catheterization Family History Father No problems noted. 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 No ecchymosis, erythema, or joint effusion. No tenderness to palpation to the medial or lateral joint lines. Full knee extension and flexion. Crepitus with ROM. Negative Matt's. NVI. Office Procedures Joint Injection/Aspiration Joint Injection/Aspiration Primary Site: right knee Prep: site was prepped using aseptic technique, ethochloride spray was applied and injection warnings given Injected: 80 mg of, DepoMedrol, with 8 mL of (2% plain lido ) and in the joint Approach Used: anterolateral Procedure: The patient tolerated the procedure well, but had some pain with the injection and there was some relief with the local anesthesia Coding - Large joint Procedure code (CPT) selection complete Assessment & Plan Assessment & Plan (1) Osteoarthritis of right knee: Code(s): M17.11 - Unilateral primary osteoarthritis, right knee Category: Medical Plan Ms. Palmer is a 68-year-old female who presents in the office today for a follow-up of a right knee osteoarthritis. I last saw the patient on 10/14/23 when she was given a cortisone injection in the right knee. While in the office today, the patient reports her last cortisone injection provided her 2 weeks of relief. She would like to have a repeat injection today. She mentions that she notices mild edema in the right knee. The patient was offered a cortisone injection in the right knee with 80 mg of DepoMedrol. The patient was explained the risks, benefits, and alternatives to receiving this injection. After receiving consent for the injection, the patient had the procedure done while in the office today. The patient tolerated the procedure well with no complications. Follow up will be PRN, or sooner if needed. Patient Instructions: Scribed by Eleonora Solomon center medical director, for Jeaneth Walker PA-C on 03/03/24 at 3:10 pm EST. Coding Level of Care Code Est Pt Level 3 (79281) Diagnoses Osteoarthritis of right knee M17.11 CPT Codes Coding - 57911 Large joint: 94706 - Large joint ([id number])
== END 2024-03-03 15:48 | disposition home or self-care (01) ==
PROVIDERS: PCP Internal Medicine; Visit Provider Physician Assistant
DX: M17.11 Unilateral primary osteoarthritis, right knee (principal)
CPT/HCPCS: 20610; 99213

== ENCOUNTER → 2024-03-03 14:59 | Outpatient (BNVA) | payer MEDICARE, OTHER, SELFPAY | PROVIDERS: PCP Internal Medicine; Visit Provider Physician Assistant | DX: M17.11 Unilateral primary osteoarthritis, right knee (principal) | CPT/HCPCS: 20610; 99212; J1010; J2003 ==

== ENCOUNTER 2024-03-05 14:29 | Outpatient (AMB) | payer MEDICARE, OTHER, SELFPAY ==
--- NOTE | 2024-03-05 14:55 | MHC.OFFVISCO ---
Intake Intake Visit Reasons: Anticoagulation Allergies gabapentin Adverse Reaction (Unknown, Verified 03/03/24 15:15) GI upset/nausea/vomiting Nursing Note INR received and reviewed from [facility] INR? 3.0 in therapeutic range HAD CORTISONE INJECTION YESTERDAY FOR HER KNEE AND IT HELPED IT HER MAY KEEPING THE INR IN UPPER RANGE No changes in health diet supplements or meds No signs and symptoms of bleeding or bruising or clotting Keep same dosing 5MG X 2 DAYS/ 7.5MG X 5 DAYS Retest 1 WEEK Anti-Coag Initial Assessment Social Hx Patient Tobacco Use Status: Current everyday Tobacco user alcohol intake: never Coding Level of Care Code Est Patient Level 1 Diagnoses Current use of anticoagulant therapy Z79.01 Results AMB INR Fingerstick AMB INR Fingerstick 3.0 Last Edit by Anabelle Vaughn RN on 03/05/24 14:52 HOME METER Assessment & Plan Assessment & Plan (1) Current use of anticoagulant therapy: Code(s): Z79.01 - long term (current) use of anticoagulants Category: Medical
== END 2024-03-05 15:41 | disposition home or self-care (01) ==
LOC: HO.ACS 14:29
PROVIDERS: PCP Internal Medicine; Visit Provider Internal Medicine
DX: Z79.01 Long term (current) use of anticoagulants (principal)

== ENCOUNTER → 2024-03-05 14:29 | Outpatient (BNVA) | payer MEDICARE, OTHER, SELFPAY | PROVIDERS: PCP Internal Medicine; Visit Provider Internal Medicine | DX: I26.99 Other pulmonary embolism without acute cor pulmonale (principal); Z79.01 Long term (current) use of anticoagulants; Z51.81 Encounter for therapeutic drug level monitoring | CPT/HCPCS: 99211 ==

== ENCOUNTER → 2024-03-12 09:56 | Outpatient (BNVA) | payer MEDICARE, OTHER, SELFPAY | PROVIDERS: PCP Internal Medicine; Visit Provider Internal Medicine ==

== ENCOUNTER → 2024-03-13 14:37 | Outpatient (BNVA) | payer MEDICARE, OTHER, SELFPAY | PROVIDERS: PCP Internal Medicine; Visit Provider Internal Medicine ==

== ENCOUNTER → 2024-03-19 12:44 | Outpatient (BNVA) | payer MEDICARE, OTHER, SELFPAY | PROVIDERS: PCP Internal Medicine; Visit Provider Internal Medicine ==

== ENCOUNTER → 2024-03-26 16:25 | Outpatient (BNVA) | payer MEDICARE, OTHER, SELFPAY | PROVIDERS: PCP Internal Medicine; Visit Provider Internal Medicine ==

== ENCOUNTER → 2024-04-02 08:22 | Outpatient (BNVA) | payer MEDICARE, OTHER, SELFPAY | PROVIDERS: PCP Internal Medicine; Visit Provider Internal Medicine ==

== ENCOUNTER → 2024-04-09 10:52 | Outpatient (BNVA) | payer MEDICARE, OTHER, SELFPAY | PROVIDERS: PCP Internal Medicine; Visit Provider Internal Medicine ==

== ENCOUNTER → 2024-04-16 10:53 | Outpatient (BNVA) | payer MEDICARE, OTHER, SELFPAY | PROVIDERS: PCP Internal Medicine; Visit Provider Internal Medicine ==

== ENCOUNTER 2024-05-12 09:17 | Outpatient (REF) | payer MEDICARE, OTHER, SELFPAY ==
[2024-05-12 09:38] LABS: MANUAL DIFF FLAG NO
[2024-05-12 09:56] LABS: Basophils Absolute Auto 0.1 X10*3/uL (0.0-0.2); Eosinophils Absolute Auto 0.2 X10*3/uL (0.0-0.4); Hematocrit 33.7 % (37.0-47.0); Hemoglobin 10.8 g/dl (12.0-16.0); Imm Gran Abs Auto 0.02 X10*3/uL (0.00-0.03); Imm Gran Pct Auto 0.4 % (0.0-0.4); Lymphocytes Absolute Auto 1.6 X10*3/uL (1.2-4.9); Mean Corpuscular Hemoglobin 29.8 pg (27.0-33.0); Mean Corpuscular Volume 93.1 fL (80.0-98.0); Mean Platelet Volume 9.7 fL (9.4-12.3); Monocytes Absolute Auto 0.6 X10*3/uL (0.1-1.2); Monocytes Percent Auto 10.5 % (2-11); Neutrophils Absolute Auto 2.8 x10*3/uL (2.0-8.3); Neutrophils Percent Auto 54.1 % (45-73); Platelet Count 236 X10*3/uL (160-400); Red Blood Count 3.62 X10*6/uL (4.20-5.50); Red Cell Distribution Width 16.2 % (11.0-16.0); White Blood Count 5.2 X10*3/uL (4.8-10.8)
[2024-05-12 11:34] LABS: Alanine Aminotransferase 14 U/L (0-31); Albumin Level 3.7 g/dL (3.5-5.0); Alkaline Phosphatase 85 U/L (39-117); Anion Gap 13 (12-20); Aspartate Amino Transferase 24 U/L (5-31); Bilirubin Total 0.5 mg/dL (0.0-1.0); Blood Urea Nitrogen 10 mg/dL (9-16); Calcium 8.7 mg/dL (8.4-10.2); Carbon Dioxide 29 mmol/L (22-29); Chloride 106 mmol/L (96-108); Cholesterol 211 mg/dL (<200); Estimated Glomerular Filt Rate > 60; Glucose Fasting 102 mg/dL (60-99); HDL Cholesterol 125 mg/dL (>40); LDL Cholesterol Calculated 75 mg/dL (<100); Potassium 4.5 mmol/L (3.3-5.1); Sodium 143 mmol/L (135-145); Total Protein 6.7 g/dL (6.5-8.0); Triglycerides 55 mg/dL (<150)
[2024-05-12 11:36] LABS: TSH reflex Free T4 2.48 uIU/mL (0.32-4.0); Vitamin D 25-OH Total 27.5 ng/mL (>30)
[2024-05-12 15:49] LABS: Appearance Urine Clear; Color Urine Yellow; Glucose Urine UA Negative (Negative); Leukocyte Esterase Urine Negative (Negative); Nitrite Urine Negative (Negative); Specific Gravity - Urine 1.025 (1.005-1.025); Urine Blood Negative (Negative); Urine Ketones Negative (Negative); Urine Protein Trace mg/dL (Neg-Trace)
== END 2024-05-12 09:18 | disposition home or self-care (01) ==
LOC: HO.LAB 09:17
PROVIDERS: PCP Internal Medicine; Visit Provider Internal Medicine
DX: R06.09 Other forms of dyspnea (principal); D68.2 Hereditary deficiency of other clotting factors; E78.2 Mixed hyperlipidemia; S22.070S Wedge compression fracture of T9-T10 vertebra, sequela; Z23 Encounter for immunization; M51.362 Other intervertebral disc degeneration, lumbar region with discogenic back pain and lower extremity pain; E55.9 Vitamin D deficiency, unspecified; M19.91 Primary osteoarthritis, unspecified site; F41.9 Anxiety disorder, unspecified; E66.9 Obesity, unspecified; F17.200 Nicotine dependence, unspecified, uncomplicated; Z86.73 Personal history of transient ischemic attack (TIA), and cerebral infarction without residual deficits; Z95.3 Presence of xenogenic heart valve; Z79.01 Long term (current) use of anticoagulants; Z79.899 Other long term (current) drug therapy; E78.00 Pure hypercholesterolemia, unspecified; R30.0 Dysuria; D64.9 Anemia, unspecified
CPT/HCPCS: 36415; 80053; 80061; 81003; 82306; 84443; 85025; 90471; 90656; 96127; 99212

== ENCOUNTER 2024-05-12 09:52 | Outpatient (AMB) | payer MEDICARE, OTHER, SELFPAY ==
[2024-05-12 09:59] VITALS: BP 128/84; PULSE 78; O2SAT 95; BMI 37.6
--- NOTE | 2024-05-12 09:59 | A.OFFPC_ITS ---
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 Required: No Accompanied by: Self / Same As Patient Allergies gabapentin Adverse Reaction (Unknown, Verified 05/12/24 10:00) GI upset/nausea/vomiting Tobacco use date assessed: 05/12/24 Fall risk assessment: No Falls in past year Last assessed Fall Risk: 05/12/24 Dental Screening Dental Screen Date: 05/12/24 Did you have a dental visit in the last 12 months?: No Did you have a dental problem in the last 6 months where you did not have access to dental care?: No Was dental information given to patient?: No HPI 4 Month F/U HPI Details The patient is here today for follow visit She reports just doing here blood work prior t coming the office reports that the she concern about her weight and would like to see if the can go on ozempic she denies chest pain, sob, palpiation or dizziness reports ongoing swelling in her legs, and numbness and tingling in bilateral lower extremities Right lower/mid back pain started in march, no sure if the injured it no pain while sitting or laying down pain 8/10 when walking Tylenol es for right pain but does not feel like it is helping the back reports that her back area feels like spasm right knee chronic issue that has been getting cortisone injections for reports that getting her last shot in December reports that ortho talked to her about draining her knee but she is nervous about doing it reports that the has a hx of hannon cyst and arthritis [facility] Medical History Osteoarthritis Vitamin D deficiency Smoker Mitral valve annular calcification Obesity (BMI 30-39.9) Anxiety Mixed hyperlipidemia Factor V deficiency Lumbar degenerative disc disease Cerebrovascular accident (CVA) due to thrombosis of left middle cerebral artery Nonrheumatic aortic (valve) stenosis Surgical History History of CVA (cerebrovascular accident) Aortic valve replaced History of cardiac catheterization Family History Father No problems noted. 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 1. Little interest or pleasure in doing things: several days 2. Feeling down, depressed, or hopeless: several days 3. Trouble falling or staying asleep, or sleeping too much: several days 4. Feeling tired or having little energy: several days 5. Poor appetite or overeating: not at all 6. Feeling bad about yourself - or that you are a failure or have let yourself or your family down: not at all 7. Trouble concentrating on things, such as reading the newspaper or watching television: not at all 8. Moving or speaking so slowly that other people could have noticed. Or the opposite - being so fidgety or restless that you have been moving around a lot more than usual: not at all 9. Thoughts that you would be better off or of hurting yourself in some way: not at all Total score: 4 Depression Screening Interpretation: Positive Depression Screening Follow-up: Existing condition and Declines treatment Depression Screening Done: Yes 60714 - PHQ-9 Billing: Yes Source: Developed by Drs. Dave Nelson, Rosa Scherer, Alex Mandujano and colleagues, with an educational melissa from [employer]. Thrive Questionnaire Date Thrive assessed: 05/12/24 I am a: Patient What is your living situation today?: I have a steady place to live Within the past 12 months, did the food you bought not last and you didn't have the money to get more?: Never true Within the past 12 months, did you worry whether your food would run out before you got money to buy more?: Never true Do you have trouble paying for medicines?: No Do you have trouble getting transportation to medical appointments?: No Do you have trouble paying your heating and electricity bill?: No Do you have trouble taking care of your child, family member or friend?: No Do you have trouble with day-to-day activities such as bathing, preparing meals, shopping, managing finances, etc.?: No Are you currently unemployed and looking for a job?: No Are you interested in more education?: No Please select the resources that you would like help with: None Currently or been in a relationship where the following occur: No concerns reported THRIVE Score: 0 AUDIT C Alcohol Use Questionnaire (AUDIT-C) 1. How often do you have a drink containing alcohol?: Never 3. How often do you have six or more drinks on one occasion?: Never Total Score: 0 Score Reviewed/Action Taken: Yes JULIO CESAR-7 AMB Questionnaire JULIO CESAR-7 Date JULIO CESAR - 7 assessed: 05/12/24 Feeling nervous, anxious, or on edge: 0 = Not at all Not being able to stop or control worryin = Not at all Worrying too much about different things: 0 = Not at all Trouble relaxin = Not at all Being so restless that it is hard to sit still: 0 = Not at all Becoming easily annoyed or irritable: 0 = Not at all Feeling afraid as if something awful might happen: 0 = Not at all Total JULIO CESAR-7 score (0-4 normal; 5-9 mild; 10-14 moderate; 15-21 severe): 0 Source: Developed by Drs. Dave Nelson, Rosa Scherer, Alex Mandujano and colleagues, with an educational melissa from [employer]. Physical exam (Primary Care) Vital Signs: Last Vital Signs Pulse 78 05/12/24 09:59 BP 128/84 05/12/24 09:59 Pulse Ox 95 05/12/24 09:59 Oxygen Delivery Method Room Air 05/12/24 09:59 BMI result Body Mass Index 37.6 Tobacco/Smoking Status: Tobacco use Status Tobacco use date assessed 05/12/24 05/12/24 10:06 Patient Tobacco Use Status Current everyday Tobacco 05/12/24 10:06 e-Cigarette/Vaping Use Never Used 05/12/24 10:06 PHQ-9: PHQ-9 Score PHQ-9: Total score 4 05/12/24 10:43 Depression Screening Interpretation: Positive Depression Screening Follow-up: Existing condition and Declines treatment Thrive Assessment: Date of Thrive Assessment Date Thrive assessed 05/12/24 05/12/24 10:06 Currently or been in a relationship where the following occur: No concerns reported Office Procedures Flu Questionnaire Does the patient have a severe egg allergy?: No Does the patient have severe life threatening allergies?: No Does the patient have a fever or illness today?: No Has the patient ever had Guillain-Alden Syndrome?: No Has the patient ever had any past reaction to a flu shot?: No Immunizations Fluarix Triv (PF) 45 mcg (15 mcg x 3)/0.5 mL IM syringe Performing Provider: Abdias Trotter MD Per[facility] Administered by: JERALD Wilkes on 05/12/24 11:04 Dose Route Admin Location Dispensed Lot Number Expiration Date NDC Management Accountant 0.5 mL IM Left Deltoid 0.5 mL [id number] 11/30/24 [id number] [id number] VIS Given Date VIS Provided VIS Publication Date 05/12/24 Single Vaccine 21 Eligibility Eligibility Date Funding Source Not [facility] Eligible 05/12/24 Private Results Reviewed Results Reviewed: Laboratory Tests 05/12/24 09:36 WBC 5.2 Hgb 10.8 L D Hct 33.7 L D Plt Count 236 D Coding Additional Codes PHQ-9 - 43320 - PHQ-9 Billing: Yes ([id number]) Assessment & Plan Assessment & Plan Plan As requested, flu vaccine given to patient today Follow up in 4 months Orders: Orders PT Evaluation and Treatment Today M54.41 - Lumbago with sciatica, right side Lipid Panel 4 Months E78.00 - Pure hypercholesterolemia, unspecified Complete Blood Count Auto Diff 4 Months D64.9 - Anemia, unspecified Comprehensive Bryant. Panel Fast 4 Months E78.00 - Pure hypercholesterolemia, unspecified Influenza [id number] Immunization Today Z23 - Encounter for immunization Medications: New semaglutide for 4 weeks 0.25 mg (0.368 mL) subcut QWEEK 3 mL 0RF E66.9 - Obesity, unspecified
== END 2024-05-12 11:07 | disposition home or self-care (01) ==
PROVIDERS: PCP Internal Medicine; Visit Provider Internal Medicine
DX: Z23 Encounter for immunization (principal)

== ENCOUNTER → 2024-05-21 14:02 | Outpatient (BNVA) | payer MEDICARE, OTHER, SELFPAY | PROVIDERS: PCP Internal Medicine; Visit Provider Internal Medicine ==

== ENCOUNTER 2024-05-28 10:50 | Outpatient (AMB) | payer MEDICARE, OTHER, SELFPAY ==
--- NOTE | 2024-05-28 11:19 | MHC.OFFVISCO ---
Intake Intake Visit Reasons: Anticoagulation Allergies gabapentin Adverse Reaction (Unknown, Verified 05/28/24 11:19) GI upset/nausea/vomiting Medication List - Last Reconciled 05/28/24 by Marissa Monet, RN acetaminophen 500 mg PO Q6H PRN 10 days baclofen 20 mg PO TID PRN cholecalciferol (vitamin D3) 50 mcg PO DAILY 90 days furosemide 20 mg PO QAM PRN lorazepam 0.5 mg PO Q8H PRN 30 days rosuvastatin 20 mg PO DAILY semaglutide 0.25 mg (0.368 mL) subcut QWEEK trazodone 50 mg PO BEDTIME PRN warfarin 7.5 mg See Protocol PO DAILY Nursing Note INR received from [facility] INR: 2.6 in therapeutic range No changes indicated per patient assessment questionnaire No changes in health, diet, supplements or meds No signs and symptoms of bleeding or bruising or clotting Dose: 7.5mg X 5 days and 5mg X 2 days Retest: 1 week Anti-Coag Initial Assessment Social Hx Patient Tobacco Use Status: Current everyday Tobacco user alcohol intake: never Coding Level of Care Code Est Patient Level 1 Diagnoses Current use of anticoagulant therapy Z79.01 Results AMB INR Fingerstick AMB INR Fingerstick 2.6 Last Edit by Marissa Monet RN on 05/28/24 11:16 [facility] Assessment & Plan Assessment & Plan (1) Current use of anticoagulant therapy: Code(s): Z79.01 - retirement (current) use of anticoagulants Category: Medical
== END 2024-05-28 11:29 | disposition home or self-care (01) ==
LOC: HO.ACS 10:50
PROVIDERS: PCP Internal Medicine; Visit Provider Internal Medicine
DX: Z79.01 Long term (current) use of anticoagulants (principal)

== ENCOUNTER → 2024-05-28 10:50 | Outpatient (BNVA) | payer MEDICARE, OTHER, SELFPAY | PROVIDERS: PCP Internal Medicine; Visit Provider Internal Medicine | DX: I26.99 Other pulmonary embolism without acute cor pulmonale (principal); Z79.01 Long term (current) use of anticoagulants; Z51.81 Encounter for therapeutic drug level monitoring | CPT/HCPCS: 99211 ==

== ENCOUNTER → 2024-06-11 11:35 | Outpatient (BNVA) | payer MEDICARE, OTHER, SELFPAY | PROVIDERS: PCP Internal Medicine; Visit Provider Internal Medicine ==

== ENCOUNTER → 2024-06-25 10:20 | Outpatient (BNVA) | payer MEDICARE, OTHER, SELFPAY | PROVIDERS: PCP Internal Medicine; Visit Provider Internal Medicine ==

== ENCOUNTER → 2024-06-30 14:56 | Outpatient (BNVA) | payer MEDICARE, OTHER, SELFPAY | PROVIDERS: PCP Internal Medicine; Visit Provider Internal Medicine ==

== ENCOUNTER → 2024-07-09 11:59 | Outpatient (BNVA) | payer MEDICARE, OTHER, SELFPAY | PROVIDERS: PCP Internal Medicine; Visit Provider Internal Medicine ==

== ENCOUNTER → 2024-07-16 16:03 | Outpatient (BNVA) | payer MEDICARE, OTHER, SELFPAY | PROVIDERS: PCP Internal Medicine; Visit Provider Internal Medicine ==

== ENCOUNTER → 2024-07-23 11:58 | Outpatient (BNVA) | payer MEDICARE, OTHER, SELFPAY | PROVIDERS: PCP Internal Medicine; Visit Provider Internal Medicine ==

== ENCOUNTER → 2024-08-11 12:42 | Outpatient (BNVA) | payer MEDICARE, OTHER, SELFPAY | PROVIDERS: PCP Internal Medicine; Visit Provider Internal Medicine ==

== ENCOUNTER → 2024-08-13 11:57 | Outpatient (BNVA) | payer MEDICARE, OTHER, SELFPAY | PROVIDERS: PCP Internal Medicine; Visit Provider Internal Medicine ==

== ENCOUNTER → 2024-08-20 13:12 | Outpatient (BNVA) | payer MEDICARE, OTHER, SELFPAY | PROVIDERS: PCP Internal Medicine; Visit Provider Internal Medicine Medical Oncology ==

== ENCOUNTER → 2024-08-27 13:41 | Outpatient (BNVA) | payer MEDICARE, OTHER, SELFPAY | PROVIDERS: PCP Internal Medicine; Visit Provider Internal Medicine Medical Oncology ==

== ENCOUNTER → 2024-09-10 13:59 | Outpatient (BNVA) | payer MEDICARE, OTHER, SELFPAY | PROVIDERS: PCP Internal Medicine; Visit Provider Internal Medicine Medical Oncology | DX: Z13.89 Encounter for screening for other disorder (principal) ==

== ENCOUNTER 2024-09-11 14:14 | Outpatient (AMB) | payer MEDICARE, OTHER, SELFPAY ==
--- NOTE | 2024-09-11 14:15 | A.OFFPC_ITS ---
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: No Accompanied by: Self / Same As Patient Allergies gabapentin Adverse Reaction (Unknown, Verified 09/11/24 14:49) GI upset/nausea/vomiting Medication List - Last Reconciled 09/11/24 by Abdias Trotter MD acetaminophen 500 mg PO Q6H PRN 10 days baclofen 20 mg PO TID PRN cholecalciferol (vitamin D3) 50 mcg PO DAILY 90 days furosemide 20 mg PO QAM PRN lorazepam 0.5 mg PO Q8H PRN 30 days nirmatrelvir-ritonavir 300 mg (150 mg x 2)-100 mg (Paxlovid) take TWO 150 mg tablets of nirmatrelvir with ONE 100 mg tablet of ritonavir twice daily for 5 days PO rosuvastatin 20 mg PO DAILY semaglutide 0.5 mg (0.736 mL) subcut QWEEK 4 weeks trazodone 50 mg PO BEDTIME PRN warfarin 7.5 mg See Protocol PO DAILY Tobacco use date assessed: 09/11/24 Fall risk assessment: No Falls in past year Last assessed Fall Risk: 09/11/24 Dental Screening Dental Screen Date: 09/11/24 Did you have a dental visit in the last 12 months?: Yes Did you have a dental problem in the last 6 months where you did not have access to dental care?: No Was dental information given to patient?: Patient has dentist HPI [facility]/[phone] HPI Details Patient's follow-up visit / consultation today is done over the phone - this is a Telehealth visit Patient's current medications have been reviewed and verified with patient and / or caregiver / proxy and have been updated accordingly in the medication list Patient states that she has been experiencing increased fatigue lately, which is mainly the reason she asked to have her appointment changed over to a telehealth visit instead States that she woke up very late today due to her increased fatigue and would not be able to make it to her appointment in person if she did not have it changed to a telehealth States that she has not been sleeping well at night lately as she often wakes up in the middle of the night Relates that she had been sleeping in her chair or recliner instead of her bed lately due to increased pain over her lower back She continues to experience increased joint pains, especially after some physical activity or exertion States that she has been able to lose about 20 lbs since her last visit a few months ago with the semaglutide injection that she was started on and she would like to continue on this at this time Is hoping that with continuing weight loss, this will allow her to become more active and which will also help improve her overall physical well-being She denies any headaches or dizziness Denies any chest pains, no increased shortness of breath No nausea/vomiting, no abdominal pain No change in bowel habits noted She would also like to know how the rest of her labs done back in May came out as a lot of them were not back yet when she came in for her visit then [facility] Medical History Osteoarthritis Vitamin D deficiency Smoker Mitral valve annular calcification Obesity (BMI 30-39.9) Anxiety Mixed hyperlipidemia Factor V deficiency Lumbar degenerative disc disease Cerebrovascular accident (CVA) due to thrombosis of left middle cerebral artery Nonrheumatic aortic (valve) stenosis Surgical History History of CVA (cerebrovascular accident) Aortic valve replaced History of cardiac catheterization Family History Father No problems noted. 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 1. Little interest or pleasure in doing things: several days 2. Feeling down, depressed, or hopeless: several days 3. Trouble falling or staying asleep, or sleeping too much: several days 4. Feeling tired or having little energy: several days 5. Poor appetite or overeating: not at all 6. Feeling bad about yourself - or that you are a failure or have let yourself or your family down: not at all 7. Trouble concentrating on things, such as reading the newspaper or watching television: not at all 8. Moving or speaking so slowly that other people could have noticed. Or the opposite - being so fidgety or restless that you have been moving around a lot more than usual: not at all 9. Thoughts that you would be better off or of hurting yourself in some way: not at all Total score: 4 Depression Screening Interpretation: Positive Depression Screening Follow-up: Existing condition and Declines treatment Depression Screening Done: Yes 23413 - PHQ-9 Billing: Yes Source: Developed by Drs. Dave Nelson, Rosa Scherer, Alex Mandujano and colleagues, with an educational melissa from [employer]. Thrive Questionnaire Date Thrive assessed: 09/11/24 I am a: Patient What is your living situation today?: I have a steady place to live Within the past 12 months, did the food you bought not last and you didn't have the money to get more?: Never true Within the past 12 months, did you worry whether your food would run out before you got money to buy more?: Never true Do you have trouble paying for medicines?: No Do you have trouble getting transportation to medical appointments?: No Do you have trouble paying your heating and electricity bill?: No Do you have trouble taking care of your child, family member or friend?: No Do you have trouble with day-to-day activities such as bathing, preparing meals, shopping, managing finances, etc.?: No Are you currently unemployed and looking for a job?: No Are you interested in more education?: No Please select the resources that you would like help with: None Currently or been in a relationship where the following occur: No concerns reported THRIVE Score: 0 AUDIT C Alcohol Use Questionnaire (AUDIT-C) 1. How often do you have a drink containing alcohol?: Never 3. How often do you have six or more drinks on one occasion?: Never Total Score: 0 Score Reviewed/Action Taken: Yes JULIO CESAR-7 AMB Questionnaire JULIO CESAR-7 Date JULIO CESAR - 7 assessed: 09/11/24 Feeling nervous, anxious, or on edge: 0 = Not at all Not being able to stop or control worryin = Not at all Worrying too much about different things: 0 = Not at all Trouble relaxin = Not at all Being so restless that it is hard to sit still: 0 = Not at all Becoming easily annoyed or irritable: 0 = Not at all Feeling afraid as if something awful might happen: 0 = Not at all Total JULIO CESAR-7 score (0-4 normal; 5-9 mild; 10-14 moderate; 15-21 severe): 0 Source: Developed by Drs. Dave Nelson, Rosa Scherer, Alex Mandujano and colleagues, with an educational melissa from [employer]. JULIO CESAR-7 Assessment Billing JULIO CESAR-7 Assessment Tool: JULIO CESAR-7 Assessment 35807 Review of Systems Const Denies chills, Reports difficulty sleeping (partly due to increased pain), Reports fatigue, Denies fever(s) and Denies headache(s) ENT Denies dysphagia, Denies dizziness, Denies otalgia, Denies headache(s), Denies neck pain, Denies odynophagia and Denies sore throat Card Denies chest pain, Denies rapid heart rate, Denies palpitations and Reports dyspnea on exertion Resp Denies chest congestion, Denies cough and Reports dyspnea on exertion GI Denies abdominal pain, Denies constipation, Denies dysphagia, Denies heartburn, Denies diarrhea, Denies nausea, Denies odynophagia and Denies vomiting Denies difficulty voiding, Denies nocturia, Denies dysuria and Denies urinary urgency Musc Reports back pain (increased ), Reports arthralgias (right knee, on and off), Reports joint swelling (right knee, on and off), Denies neck pain and Reports radiating pain into limb (into both legs) Skin/Breast Denies rash Neuro Denies dizziness and Denies headache(s) Psych Reports anxiety and Denies depression Endo Reports fatigue and Denies palpitations [place]/Lymph Denies easy bruising Physical exam (Primary Care) Vital Signs: Physical examination is not performed as visit / consultation today is done over the phone - Telehealth visit All physical findings indicated here, if present, are as per patient's and / or caregivers / proxy's report Tobacco/Smoking Status: Tobacco use Status Tobacco use date assessed 09/11/24 09/11/24 14:18 Patient Tobacco Use Status Current everyday Tobacco 09/11/24 14:18 e-Cigarette/Vaping Use Never Used 09/11/24 14:18 PHQ-9: PHQ-9 Score PHQ-9: Total score 4 09/11/24 16:36 Depression Screening Interpretation: Positive Depression Screening Follow-up: Existing condition and Declines treatment Thrive Assessment: Date of Thrive Assessment Date Thrive assessed 09/11/24 09/11/24 14:18 Currently or been in a relationship where the following occur: No concerns reported Telehealth Telehealth Telehealth Platform: Telephone Location of provider rendering services: practice address Location of patient: address on file Patient Identification confirmed using: Name, : Yes Telehealth method: voice only Patient verbally consented to treatment: Yes Patient verbally consented to billing insurance company: Yes Patient informed of any privacy concerns related to visit: Yes Minutes spent on Phone/Video with Pt.: 21 Results Reviewed Results Reviewed: Laboratory Tests 05/12/24 09:36 WBC 5.2 Hgb 10.8 L D Hct 33.7 L D Plt Count 236 D Sodium 143 Potassium 4.5 Creatinine 0.82 Estimated GFR > 60 Fasting Glucose 102 H Calcium 8.7 D AST 24 ALT 14 Triglycerides 55 Cholesterol 211 H LDL Cholesterol, Calc 75 HDL Cholesterol 125 25-OH Vitamin D Total 27.5 L TSH 2.48 Coding Level of Care Code Tele Est Pt Level 4 (92142) Diagnoses Exertional dyspnea R06.09 Anemia, unspecified type D64.9 Anemia type: unspecified type Nonrheumatic aortic (valve) stenosis I35.0 Status post transcatheter aortic valve replacement (TAVR) using bioprosthesis Z95.3 Factor V deficiency D68.2 Cerebrovascular accident (CVA) due to thrombosis of left middle cerebral artery I63.312 Mixed hyperlipidemia E78.2 Compression fracture of T9 vertebra, sequela S22.070S Encounter type: sequela Degeneration of intervertebral disc of lumbar region with discogenic back pain and lower extremity pain M51.362 Disc-related pain type: discogenic back pain and lower extremity pain Vitamin D deficiency E55.9 Primary osteoarthritis, unspecified site M19.91 Osteoarthritis location: unspecified site Osteoarthritis type: primary Anxiety F41.9 Smoker F17.200 Obesity (BMI 30-39.9) E66.9 Additional Codes JULIO CESAR-7 Assessment Billing - JULIO CESAR-7 Assessment Tool: JULIO CESAR-7 Assessment 78123 ([id number]) PHQ-9 - 99083 - PHQ-9 Billing: Yes ([id number]) Assessment & Plan Assessment & Plan (1) Exertional dyspnea: Code(s): R06.09 - Other forms of dyspnea Category: Medical Plan: Repeat echocardiogram done back in January 2024 revealed (+) normal left ventricular size, thickness, systolic function, and wall motion. The visually estimated ejection fraction is between 55-60%. Right ventricular cavity size and systolic function are normal. A bioprosthetic aortic valve is present. There is mild aortic valve stenosis but no aortic valve regurgitation. There is severe mitral annular calcification. Have advised patient that her exertional dyspnea is likely due in part to physical deconditioning as well as her weight issue, which is currently being addressed by her Semaglutide injection Rx She is also noted to be quite anemic on her labs done back in May 2024, which could also contribute to her symptoms of ALEGRE (2) Anemia: Code(s): D64.9 - Anemia, unspecified Category: Medical Qualifiers: Anemia type: unspecified type Qualified Code(s): D64.9 - Anemia, unspecified Plan: Patient was noted to be anemic on her labs done back in May 2024, with a Hgb of 10.8 and Hct of 33.7% Have advised patient that this may also be part of the reason for her increased fatigue lately Will send patient for some labs KELTON for further evaluation and to also recheck her CBC (3) Nonrheumatic aortic (valve) stenosis: Code(s): I35.0 - Nonrheumatic aortic (valve) stenosis Category: Medical Plan: S/P TAVR at [facility] in [place] on 11/27/2018, with significant improvement of her cardiac symptoms since Cardiac catheterization done at [facility] prior to her TAVR came out normal Her most recent echocardiogram done in January 2024 revealed severe mitral annular calcification with possible calcific mitral stenosis. The left ventricular systolic function is normal. The calculated ejection fraction is 55 to 60% by biplane method. A bioprosthetic aortic valve is present. 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 Category: Medical Plan: Continue Coumadin 10 mg QD as instructed per PT/INR results (6) Cerebrovascular accident (CVA) due to thrombosis of left middle cerebral artery: Code(s): I63.312 - Cerebral infarction due to thrombosis of left middle cerebral artery Category: Medical Plan: S/P tPA and IR thrombectomy at [facility] in 11/2018 with very little residual neurologic deficit Follow-up with Neurology as scheduled (7) Mixed hyperlipidemia: Code(s): E78.2 - Mixed hyperlipidemia Category: Medical Plan: Results of her labs done back in May 2024 reviewed and discussed with patient Reinforced low cholesterol diet Continue Rosuvastatin 20 mg QD Will recheck her labs and fasting lipids KELTON for follow up (8) Compression fracture of T9 vertebra: Code(s): S22.070A - Wedge compression fracture of T9-T10 vertebra, initial encounter for closed fracture Category: Medical Qualifiers: Encounter type: sequela Qualified Code(s): S22.070S - Wedge compression fracture of T9-T10 vertebra, sequela Plan: CTA of the chest done in February 2023 revealed (+) T9 vertebral compression fracture Patient has completed PT/OT/short term rehab with [facility] She continues to struggle with pain over her mid to lower back but states that she has been managing her pain Continue Tramadol 50 mg TID PRN and Cyclobenzaprine 5 mg TID PRN for pain (9) Lumbar degenerative disc disease: Code(s): M51.36 - Other intervertebral disc degeneration, lumbar region Category: Medical Qualifiers: Disc-related pain type: discogenic back pain and lower extremity pain Qualified Code(s): M51.362 - Other intervertebral disc degeneration, lumbar region with discogenic back pain and lower extremity pain Plan: Reinforced activity and weight lifting restrictions Continue Cyclobenzaprine 5 mg TID as needed (10) Vitamin D deficiency: Code(s): E55.9 - Vitamin D deficiency, unspecified Category: Medical Plan: Continue Vitamin D3 2000 units QD (11) Osteoarthritis: Comment: Involving multiple joints Code(s): M19.90 - Unspecified osteoarthritis, unspecified site Category: Medical Qualifiers: Osteoarthritis location: unspecified site Osteoarthritis type: primary Qualified Code(s): M19.91 - Primary osteoarthritis, unspecified site Plan: Knee x-rays done back in March 2022 revealed (+) OA changes bilaterally, worse in the right knee She was seen by orthopedics and offered cortisone injection but patient declin ed; she was advised then to just call them if she changes her mind about getting cortisone injections Follow up with orthopedics as scheduled/as needed (12) Anxiety: Code(s): F41.9 - Anxiety disorder, unspecified Category: Medical Plan: Continue Lorazepam 0.5 mg every 8 hours as needed (13) Smoker: Code(s): F17.200 - Nicotine dependence, unspecified, uncomplicated Category: Social Hx Plan: Patient is counseled again on complete smoking cessation (14) Obesity (BMI 30-39.9): Code(s): E66.9 - Obesity, unspecified Category: Medical Plan: Reinforced diet; exercise and weight loss are limited and not realistic at this time due to her current back and ongoing joint issues States that she has been able to lose over 20 pounds since she was started on Seamglutide injections a few months ago - is currently still on 0.25 mg SQ once a week Plan Follow up in 4 months Orders: Orders IRON PROFILE 09/11/24 D50.9 - Iron deficiency anemia, unspecified Comprehensive [place]. Panel Fast 09/11/24 E78.00 - Pure hypercholesterolemia, unspecified UA CC w/rflx Micro + Cult 09/11/24 R30.0 - Dysuria Complete Blood Count Auto Diff 09/11/24 D64.9 - Anemia, unspecified Lipid Panel 09/11/24 E78.00 - Pure hypercholesterolemia, unspecified TSH reflex Free T4 09/11/24 E78.00 - Pure hypercholesterolemia, unspecified Vitamin D 25-OH Total 09/11/24 E55.9 - Vitamin D deficiency, unspecified Vitamin B12 and Folate 09/11/24 E53.8 - Deficiency of other specified B group vitamins Medications: Refilled rosuvastatin 20 mg PO DAILY 90 tabs 1RF trazodone 50 mg PO BEDTIME PRN 90 tabs 0RF insomnia baclofen 20 mg PO TID PRN 270 tabs 0RF antispasticity agent cholecalciferol (vitamin D3) 50 mcg PO DAILY 90 days 90 caps 3RF E55.9 - Vitamin D deficiency, unspecified furosemide 20 mg PO QAM PRN 30 tabs 0RF increased swelling/edema
== END 2024-09-11 15:22 | disposition home or self-care (01) ==
PROVIDERS: PCP Internal Medicine; Visit Provider Internal Medicine
DX: R06.09 Other forms of dyspnea (principal); D64.9 Anemia, unspecified; D68.2 Hereditary deficiency of other clotting factors; I63.312 Cerebral infarction due to thrombosis of left middle cerebral artery; I35.0 Nonrheumatic aortic (valve) stenosis; Z95.3 Presence of xenogenic heart valve; E78.2 Mixed hyperlipidemia; S22.070S Wedge compression fracture of T9-T10 vertebra, sequela; M51.362 Other intervertebral disc degeneration, lumbar region with discogenic back pain and lower extremity pain; E55.9 Vitamin D deficiency, unspecified; M19.91 Primary osteoarthritis, unspecified site; F41.9 Anxiety disorder, unspecified

== ENCOUNTER → 2024-09-11 14:14 | Outpatient (BNVA) | payer MEDICARE, OTHER, SELFPAY | PROVIDERS: PCP Internal Medicine; Visit Provider Internal Medicine | DX: R06.09 Other forms of dyspnea (principal); D64.9 Anemia, unspecified; I35.0 Nonrheumatic aortic (valve) stenosis; D68.2 Hereditary deficiency of other clotting factors; E78.2 Mixed hyperlipidemia; F17.210 Nicotine dependence, cigarettes, uncomplicated; M51.362 Other intervertebral disc degeneration, lumbar region with discogenic back pain and lower extremity pain; E55.9 Vitamin D deficiency, unspecified; M19.91 Primary osteoarthritis, unspecified site; F41.9 Anxiety disorder, unspecified; E66.9 Obesity, unspecified; S22.070S Wedge compression fracture of T9-T10 vertebra, sequela; X58.XXXS Exposure to other specified factors, sequela; Z95.3 Presence of xenogenic heart valve; Z86.73 Personal history of transient ischemic attack (TIA), and cerebral infarction without residual deficits | CPT/HCPCS: 96127 ==

== ENCOUNTER → 2024-09-17 12:20 | Outpatient (BNVA) | payer MEDICARE, OTHER, SELFPAY | PROVIDERS: PCP Internal Medicine; Visit Provider Internal Medicine Medical Oncology | DX: Z13.89 Encounter for screening for other disorder (principal) ==

== ENCOUNTER → 2024-09-24 13:59 | Outpatient (BNVA) | payer MEDICARE, OTHER, SELFPAY | PROVIDERS: PCP Internal Medicine; Visit Provider Internal Medicine Medical Oncology ==

== ENCOUNTER → 2024-10-01 16:11 | Outpatient (BNVA) | payer MEDICARE, OTHER, SELFPAY | PROVIDERS: PCP Internal Medicine; Visit Provider Internal Medicine Medical Oncology | DX: Z13.89 Encounter for screening for other disorder (principal) ==

== ENCOUNTER → 2024-10-08 11:36 | Outpatient (BNVA) | payer MEDICARE, OTHER, SELFPAY | PROVIDERS: PCP Internal Medicine; Visit Provider Internal Medicine Medical Oncology ==

== ENCOUNTER → 2024-10-15 13:39 | Outpatient (BNVA) | payer MEDICARE, OTHER, SELFPAY | PROVIDERS: PCP Internal Medicine; Visit Provider Internal Medicine Medical Oncology | DX: Z13.89 Encounter for screening for other disorder (principal) ==

== ENCOUNTER → 2024-10-22 15:51 | Outpatient (BNVA) | payer MEDICARE, OTHER, SELFPAY | PROVIDERS: PCP Internal Medicine; Visit Provider Internal Medicine Medical Oncology ==

== ENCOUNTER → 2024-10-29 14:35 | Outpatient (BNVA) | payer MEDICARE, OTHER, SELFPAY | PROVIDERS: PCP Internal Medicine; Visit Provider Internal Medicine Medical Oncology ==

== ENCOUNTER → 2024-11-05 14:27 | Outpatient (BNVA) | payer MEDICARE, OTHER, SELFPAY | PROVIDERS: PCP Internal Medicine; Visit Provider Internal Medicine Medical Oncology | DX: Z13.89 Encounter for screening for other disorder (principal) ==

== ENCOUNTER → 2024-11-12 15:58 | Outpatient (BNVA) | payer MEDICARE, OTHER, SELFPAY | PROVIDERS: PCP Internal Medicine; Visit Provider Internal Medicine Medical Oncology ==

== ENCOUNTER → 2024-11-18 10:36 | Outpatient (BNVA) | payer MEDICARE, OTHER, SELFPAY | PROVIDERS: PCP Internal Medicine; Visit Provider Internal Medicine Medical Oncology ==

== ENCOUNTER → 2024-11-26 14:05 | Outpatient (BNVA) | payer MEDICARE, OTHER, SELFPAY | PROVIDERS: PCP Internal Medicine; Visit Provider Internal Medicine Medical Oncology | DX: Z13.89 Encounter for screening for other disorder (principal) ==

== ENCOUNTER 2024-12-24 12:34 | Outpatient (AMB) | payer MEDICARE, OTHER, SELFPAY ==
[2024-12-24 12:35] VITALS: BMI 34.4
--- NOTE | 2024-12-24 12:35 | MHC.PC.OV ---
Vital Signs 12/24/24 12:35 Height 5 ft 10 in Weight 240 lb BMI 34.4 Blood Pressure Location Lt brachial Position Sitting Pulse Source Pulse Oximeter Oxygen Delivery Method Room Air Comment weight is provided by patient Intake Visit Reasons: d/c [facility] Shingles Accompanied by: Self / Same As Patient Allergies pregabalin Adverse Reaction (Intermediate, Verified 12/24/24 13:16) nausea/vomiting gabapentin Adverse Reaction (Unknown, Verified 12/24/24 12:57) GI upset/nausea/vomiting Medication List - Last Reconciled 12/24/24 by Abdias Trotter MD acetaminophen 500 mg PO Q6H PRN 10 days albuterol sulfate 90 mcg/actuation (Ventolin HFA) 2 puffs inhalation Q6H PRN 30 days baclofen 20 mg PO TID PRN cholecalciferol (vitamin D3) 50 mcg PO DAILY 90 days doxycycline hyclate 100 mg PO BID enoxaparin (Lovenox) 100 mg See Protocol subcut DAILY 10 days furosemide 20 mg PO QAM PRN lorazepam 0.5 mg PO Q8H PRN 30 days oxycodone 5 mg PO Q6H PRN rosuvastatin 20 mg PO DAILY semaglutide 1 mg (0.75 mL) subcut QWEEK 4 weeks trazodone 50 mg PO BEDTIME PRN valacyclovir 1,000 mg PO BID [VITAMIN B 12 PO] [VITAMIN B 6 TAB PO] warfarin 7.5 mg See Protocol PO DAILY Tobacco use date assessed: 12/24/24 Last assessed Fall Risk: 12/24/24 Dental Screening Dental Screen Date: 12/24/24 [facility] d/c [facility] HPI Details Patient's follow up visit / consultation today is done over video conference (iPhone/iPad/Google Meets/Doximity) - this is a TELEHEALTH visit Patient's current medications have been reviewed and verified with patient and/or caregiver/proxy and have been updated accordingly in the medication list Patient states that she is currently still experiencing a lot of pain on and around the left frontal area of her head, including her left forehead and left periorbital area from the shingles that she has She reportedly first broke out in lesions from her shingles around the left eye and on the left side of her forehead sometime around 12/11/2024 but she recalls that she was complaining of increased left-sided headaches, which she feels was unusual for her, when she was still in the hospital She was admitted to [facility] from 12/05/24 to 12/11/2024 for aspiration pneumonia and COPD exacerbation after she first presented to the ER at [facility] with hematemesis, chills and increased cough and congestion She was apparently also admitted to the MICU for a few days due to hypotension requiring Tx with pressors (Dx with hemorrhagic shock) Workups were negative, including a CT angio, and her H/H remained stable throughout her hospital stay States that she was transferred to rehab when she was discharged from the hospital but she only spent 1 day at rehab and was subsequently released home the next day Patient states that she was initially tried on Pregabalin for the pain on her left forehead and left periorbital area but she started feeling very naseous and threw up after taking her first dose and she has not taken it again since She recalls having a similar reaction to Gabapentin in the past She was discharged home with prescriptions for oral doxycycline and valacyclovir, both of which she is still currently taking She was then prescribed some oxycodone 5 mg for pain and was instructed to follow-up with her PCP KELTON States that she has been taking this every 6 hours lately due to her increased pain and she is requesting to get this refilled, as well as her lorazepam Notes that the vision in her left eye is still slightly blurry but she also still has significant swelling of her left eyelid due to orbital cellulitis She denies any fever or chills Denies any exertional chest pains or increased shortness of breath No nausea/vomiting, no abdominal pain No change in bowel habits noted [facility] Medical History Osteoarthritis Vitamin D deficiency Smoker Mitral valve annular calcification Obesity (BMI 30-39.9) Anxiety Mixed hyperlipidemia Factor V deficiency Lumbar degenerative disc disease Cerebrovascular accident (CVA) due to thrombosis of left middle cerebral artery Nonrheumatic aortic (valve) stenosis Surgical History History of CVA (cerebrovascular accident) Aortic valve replaced History of cardiac catheterization Family History Father No problems noted. 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 1. Little interest or pleasure in doing things: several days 2. Feeling down, depressed, or hopeless: several days 3. Trouble falling or staying asleep, or sleeping too much: several days 4. Feeling tired or having little energy: several days 5. Poor appetite or overeating: not at all 6. Feeling bad about yourself - or that you are a failure or have let yourself or your family down: not at all 7. Trouble concentrating on things, such as reading the newspaper or watching television: not at all 8. Moving or speaking so slowly that other people could have noticed. Or the opposite - being so fidgety or restless that you have been moving around a lot more than usual: not at all 9. Thoughts that you would be better off or of hurting yourself in some way: not at all Total score: 4 Depression Screening Interpretation: Positive Depression Screening Follow-up: Existing condition and Declines treatment Depression Screening Done: Yes 39721 - PHQ-9 Billing: Yes Source: Developed by Drs. Dave Nelson, Rosa Scherer, Alex Mandujano and colleagues, with an educational melissa from [employer]. Thrive Questionnaire Date Thrive assessed: 12/24/24 I am a: Patient What is your living situation today?: I have a steady place to live Within the past 12 months, did the food you bought not last and you didn't have the money to get more?: Never true Within the past 12 months, did you worry whether your food would run out before you got money to buy more?: Never true Do you have trouble paying for medicines?: No Do you have trouble getting transportation to medical appointments?: No Do you have trouble paying your heating and electricity bill?: No Do you have trouble taking care of your child, family member or friend?: No Do you have trouble with day-to-day activities such as bathing, preparing meals, shopping, managing finances, etc.?: No Are you currently unemployed and looking for a job?: No Are you interested in more education?: No Please select the resources that you would like help with: None Currently or been in a relationship where the following occur: No concerns reported THRIVE Score: 0 AUDIT C Alcohol Use Questionnaire (AUDIT-C) 1. How often do you have a drink containing alcohol?: Never 3. How often do you have six or more drinks on one occasion?: Never Total Score: 0 Score Reviewed/Action Taken: Yes JULIO CESAR-7 AMB Questionnaire JULIO CESAR-7 Date JULIO CESAR - 7 assessed: 12/24/24 Feeling nervous, anxious, or on edge: 0 = Not at all Not being able to stop or control worryin = Not at all Worrying too much about different things: 0 = Not at all Trouble relaxin = Not at all Being so restless that it is hard to sit still: 0 = Not at all Becoming easily annoyed or irritable: 0 = Not at all Feeling afraid as if something awful might happen: 0 = Not at all Total JULIO CESAR-7 score (0-4 normal; 5-9 mild; 10-14 moderate; 15-21 severe): 0 Source: Developed by Drs. Dave Nelson, Rosa Scherer, Alex Mandujano and colleagues, with an educational melissa from [employer]. JULIO CESAR-7 Assessment Billing JULIO CESAR-7 Assessment Tool: JULIO CESAR-7 Assessment 70911 Review of Systems Const Denies chills, Reports difficulty sleeping (partly due to increased pain), Reports fatigue, Denies fever(s) and Reports headache(s) (on and off on the left side) Eyes Details: (+) mild pain around the left eye, with some swelling and residual shingles lesions around the eye and over the left side of the forehead Reports blurry vision (on and off in the left eye) ENT Denies dysphagia, Denies dizziness, Denies otalgia, Reports headache(s) (on and off on the left side), Denies neck pain, Denies odynophagia and Denies sore throat Card Denies chest pain, Denies rapid heart rate, Denies palpitations and Reports dyspnea on exertion Resp Denies chest congestion, Denies cough and Reports dyspnea on exertion GI Denies abdominal pain, Denies constipation, Denies dysphagia, Denies heartburn, Denies diarrhea, Denies nausea, Denies odynophagia and Denies vomiting Denies difficulty voiding, Denies nocturia, Denies dysuria and Denies urinary urgency Musc Reports back pain (increased ), Reports arthralgias (right knee, on and off), Reports joint swelling (right knee, on and off), Denies neck pain and Reports radiating pain into limb (into both legs) Skin/Breast Denies rash Neuro Denies dizziness and Reports headache(s) (on and off on the left side) Psych Reports anxiety and Denies depression Endo Reports fatigue and Denies palpitations Fransisco/Lymph Denies easy bruising Physical exam (Primary Care) Vital Signs: Oxygen Delivery Method Room Air 12/24/24 12:35 Physical examination is not performed as visit / consultation today is done over videoconference - Telehealth visit All physical findings indicated here, if present, are as per patient's and / or caregivers / proxy's report and visual inspection over videoconference, if appropriate or applicable Patient is noted on videoconference to have (+) mild swelling over the left eye and around the left periorbital area as well as (+) multiple residual shingles lesions around the left eye Tobacco/Smoking Status: Tobacco use Status Tobacco use date assessed 12/24/24 12/24/24 12:39 Patient Tobacco Use Status Current everyday Tobacco 12/24/24 12:39 e-Cigarette/Vaping Use Never Used 12/24/24 12:39 PHQ-9: PHQ-9 Score PHQ-9: Total score 4 12/24/24 13:04 Depression Screening Interpretation: Positive Depression Screening Follow-up: Existing condition and Declines treatment Thrive Assessment: Date of Thrive Assessment Date Thrive assessed 12/24/24 12/24/24 12:39 Currently or been in a relationship where the following occur: No concerns reported Telehealth Telehealth Telehealth Platform: Telephone Location of provider rendering services: practice address Location of patient: address on file Patient Identification confirmed using: Name, : Yes Telehealth method: video (iphone/[employer] Directions) Patient verbally consented to treatment: Yes Patient verbally consented to billing insurance company: Yes Patient informed of any privacy concerns related to visit: Yes Minutes spent on Phone/Video with Pt.: 22 Coding Level of Care Code Tele Est Pt Level 4 (80676) Diagnoses Herpes zoster with complication B02.8 Herpes zoster complications: unspecified herpes zoster complication Preseptal cellulitis of left eye L03.213 Postherpetic neuralgia B02.29 Nonrheumatic aortic (valve) stenosis I35.0 Status post transcatheter aortic valve replacement (TAVR) using bioprosthesis Z95.3 Factor V deficiency D68.2 Cerebrovascular accident (CVA) due to thrombosis of left middle cerebral artery I63.312 Mixed hyperlipidemia E78.2 Compression fracture of T9 vertebra, sequela S22.070S Encounter type: sequela Degeneration of intervertebral disc of lumbar region with discogenic back pain and lower extremity pain M51.362 Disc-related pain type: discogenic back pain and lower extremity pain Vitamin D deficiency E55.9 Primary osteoarthritis, unspecified site M19.91 Osteoarthritis location: unspecified site Osteoarthritis type: primary Anxiety F41.9 Smoker F17.200 Obesity (BMI 30-39.9) E66.9 Additional Codes JULIO CESAR-7 Assessment Billing - JULIO CESAR-7 Assessment Tool: JULIO CESAR-7 Assessment 85950 ([id number]) PHQ-9 - 11339 - PHQ-9 Billing: Yes ([id number]) Assessment & Plan Assessment & Plan (1) Shingles: Comment: predominantly around the left eye and over the left frontal area of the head - lesions broke on around 12/11/2024 Code(s): B02.9 - Zoster without complications Category: Medical Qualifiers: Herpes zoster complications: unspecified herpes zoster complication Qualified Code(s): B02.8 - Zoster with other complications Plan: Continue Valacyclovir 1000 mg BID - patient is instructed to finish up all of her prescribed antiviral Rx Will also refer patient for urgent ophthalmology consultation/examination of her left eye to r/o ocular involvemen, which can lead to potential loss of vision if this is not addressed immediately (2) Preseptal cellulitis of left eye: Code(s): L03.213 - Periorbital cellulitis Category: Medical Plan: Continue Doxycycline 100 mg BID (3) Postherpetic neuralgia: Code(s): B02.29 - Other postherpetic nervous system involvement Category: Medical Plan: Patient has not been able to tolerate both Gabapentin and Pregabalin due to side effects She was prescribed some Oxycodone 5 mg Q 6 hours PRN for pain and she is currently requesting to have this refilled Have advised patient that I will go ahead and refill this for now but have instructed her to start spacing this out and to come off the medication as soon as she can once her left forehead and left eye pain from her shingles start subsiding and that I would not allow her to stay on Oxycodone indefinitely (4) Nonrheumatic aortic (valve) stenosis: Code(s): I35.0 - Nonrheumatic aortic (valve) stenosis Category: Medical Plan: S/P TAVR at [facility] in [place] on 11/27/2018, with significant improvement of her cardiac symptoms since Cardiac catheterization done at [facility] prior to her TAVR came out normal Her most recent echocardiogram done in January 2024 revealed severe mitral annular calcification with possible calcific mitral stenosis. The left ventricular systolic function is normal. The calculated ejection fraction is 55 to 60% by biplane method. A bioprosthetic aortic valve is present. The prosthetic a aortic valve appears to be functioning normally Follow up with cardiology as scheduled for continuing management /surveillance (5) Status post transcatheter aortic valve replacement (TAVR) using bioprosthesis: Comment: surgery done at [facility] in [place] in 11/2018 Code(s): Z95.3 - Presence of xenogenic heart valve Category: Surgical Plan: Follow up with cardiology as scheduled (6) Factor V deficiency: Code(s): 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 Category: Medical Plan: Continue Coumadin 10 mg QD as instructed per PT/INR results (7) Cerebrovascular accident (CVA) due to thrombosis of left middle cerebral artery: Code(s): I63.312 - Cerebral infarction due to thrombosis of left middle cerebral artery Category: Medical Plan: S/P tPA and IR thrombectomy at [facility] in 11/2018 with very little residual neurologic deficit Follow-up with Neurology as scheduled (8) Mixed hyperlipidemia: Code(s): E78.2 - Mixed hyperlipidemia Category: Medical Plan: Reinforced low cholesterol diet Continue Rosuvastatin 20 mg QD Will recheck her labs and fasting lipids for follow up in a couple of months (9) Compression fracture of T9 vertebra: Code(s): S22.070A - Wedge compression fracture of T9-T10 vertebra, initial encounter for closed fracture Category: Medical Qualifiers: Encounter type: sequela Qualified Code(s): S22.070S - Wedge compression fracture of T9-T10 vertebra, sequela Plan: CTA of the chest done in February 2023 revealed (+) T9 vertebral compression fracture Patient has completed PT/OT/short term rehab with [facility] She continues to struggle with pain over her mid to lower back but states that she has been managing her pain Continue Tramadol 50 mg TID PRN and Cyclobenzaprine 5 mg TID PRN for pain (10) Lumbar degenerative disc disease: Code(s): M51.36 - Other intervertebral disc degeneration, lumbar region Category: Medical Qualifiers: Disc-related pain type: discogenic back pain and lower extremity pain Qualified Code(s): M51.362 - Other intervertebral disc degeneration, lumbar region with discogenic back pain and lower extremity pain Plan: Reinforced activity and weight lifting restrictions Continue Cyclobenzaprine 5 mg TID as needed (11) Vitamin D deficiency: Code(s): E55.9 - Vitamin D deficiency, unspecified Category: Medical Plan: Continue Vitamin D3 2000 units QD (12) Osteoarthritis: Comment: Involving multiple joints Code(s): M19.90 - Unspecified osteoarthritis, unspecified site Category: Medical Qualifiers: Osteoarthritis location: unspecified site Osteoarthritis type: primary Qualified Code(s): M19.91 - Primary osteoarthritis, unspecified site Plan: Knee x-rays done back in March 2022 revealed (+) OA changes bilaterally, worse in the right knee She was seen by orthopedics and offered cortisone injection but patient declined; she was advised then to just call them if she changes her mind about getting cortisone injections Follow up with orthopedics as scheduled/as needed (13) Anxiety: Code(s): F41.9 - Anxiety disorder, unspecified Category: Medical Plan: Continue Lorazepam 0.5 mg every 8 hours as needed - Rx refilled (14) Smoker: Code(s): F17.200 - Nicotine dependence, unspecified, uncomplicated Category: Social Hx Plan: Patient is counseled again on complete smoking cessation (15) Obesity (BMI 30-39.9): Code(s): E66.9 - Obesity, unspecified Category: Medical Plan: Reinforced diet; exercise and weight loss are limited and not realistic at this time due to her current back and ongoing joint issues States that she has been able to lose over 20 pounds since she was started on Seamglutide injections a few months ago - is now on 1 mg SQ once a week but patient states that she has not taken her Semaglutide over the past 2 weeks because of current issues She is currently still finishing up her antiviral and antibiotic treatments for her shingles, left periorbital cellulitis and ongoing neuropathic pain around her left eye and over the left side of her forehead, have advised patient to continue to hold her Semaglutide injections for now, at least for another week Plan To return as scheduled in February 2025 for her annual physical examination Orders: Referrals Ophthalmology Referral B02.9 - Zoster without complications, L03.213 - Periorbital cellulitis Medications: New oxycodone 5 mg PO Q6-8H PRN 30 tabs 0RF severe pain B02.29 - Other postherpetic nervous system involvement Refilled lorazepam 0.5 mg PO Q8H PRN 90 tabs 1RF anxiety 30 days
--- OUTSIDE RECORDS SUMMARY | 2024-12-24 12:55 | XMS_ITS | Encounter Summary ---
Author Organization [facility] Address [address] [place] [address] Care Team Providers Care Feed Research Aide Name Role Phone Gabriele Thomas MD Primary Care Provider [phone] Encounter Details Date Type Department Care Team (Late st Contact Info) Description 12/14/2024 Lab Requisition [facility] - Main Lab [address] [place] [address] Gabriele Thomas MD [address] [place] [address] [phone] Anemia, unspecified; Unspecified atrial fibrillation (CMS/HCC V24, CMS/HCC V28); Type 2 diabetes mellitus without complications (CMS/HCC V24, CMS/HCC V28) Social History Tobacco Use Types Packs/Day Years Used Date Smoking Tobacco: Never Assessed Comments Unknown Sex and Gender Information Value Date Recorded Sex Assigned at Not on file Legal Sex Female 12:27 AM EST Gender Identity Not on file Sexual Orientation Not on file documented as of this encounter Plan of Treatment Not on file documented as of this encounter Visit Diagnoses Diagnosis Anemia, unspecified Unspecified atrial fibrillation (CMS/HCC V24, CMS/HCC V28) Type 2 diabetes mellitus without complications (CMS/HCC V24, CMS/HCC V28) documented in this encounter Care Teams Feed Research Aide Relationship Specialty Start Date End Date Gabriele Thomas MD [address] [place] [address] [id number] PCP - General Internal Medicine 12/11/24 documented as of this encounter
--- OUTSIDE RECORDS SUMMARY | 2025-02-18 20:00 | XMS_ITS | Clinical Summary ---
Author Organization Unknown Care Team Providers Care Assistant Teacher Name Role Phone NADIYA VELAZQUEZ, SONAM Unavailable Unavailable MAURA CHOUDHURY, GIL Unavailable Unavailable RADHA LIM, PAOLA Unavailable Unavailable Payers Payer Name Policy Type Policy Number Effective Date Expira tion Date [place] [id number] Problems Condition Name Condition Details Condition Category Status Onset Date Resolution Date Last Treatment Date Treating Clinician Comments CODING TO BE COMPLETED AFTER CLINICAL DOCUMENTATIO N REVIEW Active 12-16 00:00: 00 HEADACHE, UNSPECIFIED Active 12-16 00:00: 00 PERIORBITAL CELLULITIS Active 12-15 00:00: 00 CHRONIC OBSTRUCTIVE PULMONARY DISEASE, UNSPECIFIED Active 12-22 00:00: 00 ZOSTER WITH OTHER COMPLICATION S Active 12-22 00:00: 00 Allergies, Adverse Reactions, Alerts Allergy Name Allergy Type Status Severity Reaction(s) Onset Date Inactive Date Treating Clinician Comments GABAPENTIN Propensity to adverse reactions Active 12-22 14:09: 56 Vital Signs Vital Name Observation Time Observation Value Commen ts Temperature 2024-12-22 16:34:00.000 98.7 [degF] BMI (%) 2024-12-22 16:26:05.000 34 kg/m2 Height 2024-12-22 16:25:43.000 70 [in_us] Pulse 2024-12-22 16:34:00.000 86 /min O2 Saturation (%) 2024-12-22 16:34:00.000 96 % Respirations 2024-12-22 16:34:00.000 18 /min Weight (lbs) 2024-12-22 16:26:05.000 240 [lb_av] Systolic Blood Pressure 2024-12-22 16:34:00.000 122 mm [Hg] Diastolic Blood Pressure 2024-12-22 16:34:00.000 74 mm [Hg] Plan of Treatment Planned Activity Planned Date Details Comments Future Scheduled Test SKILLED NU RSE TO EVALUATE PATIENT, IDENTIFY PRIMARY AND CO-MORBID CONDITIONS CODED PER CODING GUIDELINES, AND DEVELOP PATIENT SPECIFIC PLAN OF CARE THAT INCLUDES PATIENT GOAL FOR HOME HEALTH. [code = SKILLED NURSE TO EVALUATE PATIENT, IDENTIFY PRIMARY AND CO-MORBID CONDITIONS CODED PER CODING GUIDELINES, AND DEVELOP PATIENT SPECIFIC PLAN OF CARE THAT INCLUDES PATIENT GOAL FOR HOME HEALTH.] Future Scheduled Test SKILLED NU RSE TO REVIEW PATIENT MEDICATIONS (PRESCRIPTION/OTC). INSTRUCT PATIENT/CAREGIVER ON ALL MEDICATIONS INCLUDING PURPOSE, WHEN TO TAKE, IMPORTANCE OF MEDICATION ADHERENCE, MONITORING OF EFFECTIVENESS, ADVERSE DRUG REACTIONS, POSSIBLE SIDE EFFECTS, AND WHEN TO NOTIFY AGENCY OR PHYSICIAN/PROVIDER OF ANY CONCERNS. [code = SKILLED NURSE TO REVIEW PATIENT MEDICATIONS (PRESCRIPTION/OTC). INSTRUCT PATIENT/CAREGIVER ON ALL MEDICATIONS INCLUDING PURPOSE, WHEN TO TAKE, IMPORTANCE OF MEDICATION ADHERENCE, MONITORING OF EFFECTIVENESS, ADVERSE DRUG REACTIONS, POSSIBLE SIDE EFFECTS, AND WHEN TO NOTIFY AGENCY OR PHYSICIAN/PROVIDER OF ANY CONCERNS.] Future Scheduled Test PATIENT WILKES S A RISK OF HOSPITALIZATION AND ED USE. SKILLED NURSE TO ESTABLISH SUPPORT MEASURES TO MINIMIZE RISK OF HOSPITALIZATION AND ED USE, AND INSTRUCT PATIENT/CAREGIVER ON METHODS TO REDUCE AVOIDABLE HOSPITALIZATION AND ED USE. [code = PATIENT HAS A RISK OF HOSPITALIZATION AND ED USE. SKILLED NURSE TO ESTABLISH SUPPORT MEASURES TO MINIMIZE RISK OF HOSPITALIZATION AND ED USE, AND INSTRUCT PATIENT/CAREGIVER ON METHODS TO REDUCE AVOIDABLE HOSPITALIZATION AND ED USE.] Future Scheduled Test SKILLED NU RSE TO PROVIDE INSTRUCTION TO PATIENT/CAREGIVER RELATED TO DISCHARGE PLANNING. [code = SKILLED NURSE TO PROVIDE INSTRUCTION TO PATIENT/CAREGIVER RELATED TO DISCHARGE PLANNING.] Future Scheduled Test SKILLED NU RSE FOR OBSERVATION AND ASSESSMENT OF PATIENTS PAIN LEVEL AND EFFECTIVENESS OF PAIN MANAGEMENT REGIMEN. SKILLED NURSE TO INSTRUCT PATIENT/CAREGIVER REGARDING PHARMACOLOGIC AND NON-PHARMACOLOGIC PAIN CONTROL MEASURES. SKILLED NURSE TO REPORT TO PHYSICIAN IF PAIN LEVEL IS OUTSIDE OF ESTABLISHED PARAMETERS. [code = SKILLED NURSE FOR OBSERVATION AND ASSESSMENT OF PATIENTS PAIN LEVEL AND EFFECTIVENESS OF PAIN MANAGEMENT REGIMEN. SKILLED NURSE TO INSTRUCT PATIENT/CAREGIVER REGARDING PHARMACOLOGIC AND NON-PHARMACOLOGIC PAIN CONTROL MEASURES. SKILLED NURSE TO REPORT TO PHYSICIAN IF PAIN LEVEL IS OUTSIDE OF ESTABLISHED PARAMETERS.] Future Scheduled Test SKILLED NU RSE TO PERFORM ENVIRONMENTAL SAFETY RISK ASSESSMENT AND FALL RISK ASSESSMENT AND PROVIDE INSTRUCTION TO IMPLEMENT ENVIRONMENTAL SAFETY AND FALL PREVENTION STRATEGIES THROUGHOUT THE CERTIFICATION PERIOD. SKILLED NURSE WILL MAINTAIN SITUATIONAL AWARENESS AND WILL NOTIFY CLINICAL ASSEMBLER UTILITY BUILDINGS AND PHYSICIAN/PROVIDER WITH ANY CHANGE IN CONDITION. [code = SKILLED NURSE TO PERFORM ENVIRONMENTAL SAFETY RISK ASSESSMENT AND FALL RISK ASSESSMENT AND PROVIDE INSTRUCTION TO IMPLEMENT ENVIRONMENTAL SAFETY AND FALL PREVENTION STRATEGIES THROUGHOUT THE CERTIFICATION PERIOD. SKILLED NURSE WILL MAINTAIN SITUATIONAL AWARENESS AND WILL NOTIFY CLINICAL ASSEMBLER UTILITY BUILDINGS AND PHYSICIAN/PROVIDER WITH ANY CHANGE IN CONDITION.] Future Scheduled Test SKILLED NU RSE TO ASSESS ANXIETY AND PROVIDE ASSISTANCE TO PATIENT FOR UNDERSTANDING AND MANAGEMENT OF FEELINGS. [code = SKILLED NURSE TO ASSESS ANXIETY AND PROVIDE ASSISTANCE TO PATIENT FOR UNDERSTANDING AND MANAGEMENT OF FEELINGS.] Future Scheduled Test SKILLED NU RSE FOR O/A AND SKILLED TEACHING RELATED TO ALTERED SKIN INTEGRITY ORBITAL SHINGLES [code = SKILLED NURSE FOR O/A AND SKILLED TEACHING RELATED TO ALTERED SKIN INTEGRITY ORBITAL SHINGLES] Future Scheduled Test SKILLED NU RSE FOR INSTRUCTION/ REINFORCEMENT OF NEEDS RELATED TO NUTRITION/HYDRATION. [code = SKILLED NURSE FOR INSTRUCTION/ REINFORCEMENT OF NEEDS RELATED TO NUTRITION/HYDRATION.] Future Scheduled Test SKILLED NU RSE FOR MONITORING, O/A AND TEACHING RELATED TO MANAGEMENT OF ANTICOAGULATION THERAPY INCLUDING DIET, MEDICATION SIDE EFFECTS, SAFETY MEASURES TO PREVENT INJURY, AND S/S TO REPORT. PT/INR TO BE OBTAINED ORDERED AND RESULTS REPORTED TO PHYSICIAN. [code = SKILLED NURSE FOR MONITORING, O/A AND TEACHING RELATED TO MANAGEMENT OF ANTICOAGULATION THERAPY INCLUDING DIET, MEDICATION SIDE EFFECTS, SAFETY MEASURES TO PREVENT INJURY, AND S/S TO REPORT. PT/INR TO BE OBTAINED ORDERED AND RESULTS REPORTED TO PHYSICIAN.] Future Scheduled Test SKILLED NU RSE FOR TEACHING ON ADMINSTRATION OF INHALATION THERAPY AND CARE OF EQUIPMENT [code = SKILLED NURSE FOR TEACHING ON ADMINSTRATION OF INHALATION THERAPY AND CARE OF EQUIPMENT] Future Scheduled Test SKILLED NU RSE TO INSTRUCT PATIENT/CAREGIVER ON COPD TO INCLUDE TEACHING AND SELF-MANAGEMENT RELATED TO COPD DISEASE PROCESS, SIGNS AND SYMPTOMS, AND COMPLICATIONS. [code = SKILLED NURSE TO INSTRUCT PATIENT/CAREGIVER ON COPD TO INCLUDE TEACHING AND SELF-MANAGEMENT RELATED TO COPD DISEASE PROCESS, SIGNS AND SYMPTOMS, AND COMPLICATIONS.] Future Scheduled Test SKILLED NU RSE FOR O/A AND SKILLED TEACHING RELATED TO SIGNS AND SYMPTOMS OF INFECTION AND INFECTION CONTROL MEASURES. [code = SKILLED NURSE FOR O/A AND SKILLED TEACHING RELATED TO SIGNS AND SYMPTOMS OF INFECTION AND INFECTION CONTROL MEASURES.] Future Scheduled Test SKILLED NU RSE TO INSTRUCT PATIENT/CAREGIVER ON PREVENTION OF SEPSIS, AND SIGNS AND SYMPTOMS OF SEPSIS TO REPORT. [code = SKILLED NURSE TO INSTRUCT PATIENT/CAREGIVER ON PREVENTION OF SEPSIS, AND SIGNS AND SYMPTOMS OF SEPSIS TO REPORT.] Future Scheduled Test PHYSICAL T HERAPIST TO EVALUATE PATIENT FOR ORDERED, IMPROVE STRENGTH AND ADL FUNCTION [code = PHYSICAL THERAPIST TO EVALUATE PATIENT FOR ORDERED, IMPROVE STRENGTH AND ADL FUNCTION ] Goal Patient Goal - F EEL BETTER AND GET STRONGER Goal Provider Goal - A PLAN OF CARE WILL BE ESTABLISHED THAT MEETS PATIENT'S MCC NEEDS AND INCLUDES PATIENT GOAL FOR HOME HEALTH. Goal Provider Goal - PATIENT/CAREGIVER WILL VERBALIZE UNDERSTANDING OF EDUCATION PROVIDED ON MEDICATIONS BY THE END OF THE CERTIFICATION PERIOD. Goal Provider Goal - PATIENT WILL HAVE SUPPORT MEASURES ESTABLISHED TO PREVENT HOSPITALIZATION AND ED USE AND PATIENT/CAREGIVER WILL VERBALIZE/DEMONSTRATE METHODS TO REDUCE AVOIDABLE HOSPITALIZATION AND ED USE BY END OF EPISODE. Goal Provider Goal - PATIENT/CAREGIVER WILL VERBALIZE UNDERSTANDING OF DISCHARGE PLANNING INSTRUCTIONS BY DATE OF DISCHARGE. Goal Provider Goal - PATIENT/CAREGIVER WILL DEMONSTRATE UNDERSTANDING OF PHARMACOLOGIC AND NONPHARMACOLOGIC PAIN CONTROL MEASURES AND PATIENT WILL HAVE IMPROVEMENT IN PAIN INTERFERING WITH ACTIVITY EVIDENCED BY PAIN AT A LEVEL THAT IS ACCEPTABLE TO THE PATIENT AND PAIN LEVEL WITHIN ESTABLISHED PARAMETERS BY END OF CERTIFICATION PERIOD. Goal Provider Goal - PATIENT/CAREGIVER WILL VERBALIZE/DEMONSTRATE EFFECTIVE ENVIRONMENTAL SAFETY AND FALL PREVENTION STRATEGIES, WILL REMAIN SAFE IN THE COMMUNITY, AND WILL BE FREE OF DANGER TO SELF AND OTHERS THROUGHOUT THE CERTIFICATION PERIOD. Goal Provider Goal - SYMPTOMS OF ANXIETY ARE IDENTIFIED AND INTERVENTIONS INITIATED TO ENABLE PATIENT TO UNDERSTAND AND MANAGE FEELINGS THROUGHOUT EPISODE. Goal Provider Goal - PATIENT/CAREGIVER WILL VERBALIZE/DEMONSTRATE UNDERSTANDING OF TEACHING RELATED TO ALTERED SKIN INTEGRITY BY END OF CERTIFICATION PERIOD. Goal Provider Goal - PATIENT/CAREGIVER WILL DEMONSTRATE ABILITY TO SELF MANAGE NEEDS RELATED TO NUTRITION/HYDRATION THROUGHOUT THE EPISODE. Goal Provider Goal - PATIENT/CAREGIVER WILL VERBALIZE/DEMONSTRATE UNDERSTANDING OF MANAGEMENT OF ANTICOAGULATION THERAPY AND PT/INR WILL BE MAINTAINED AT A THERAPEUTIC LEVEL BY END OF EPISODE. Goal Provider Goal - PATIENT/CAREGIVER WILL VERBALIZE/DEMONSTRATE INDEPENDENCE WITH ADMINISTRATION OF ORDERED INHALATION THERAPY AND CARE OF EQUIPMENT A RESULT OF SKILLED TEACHING THROUGHOUT THE EPISODE. Goal Provider Goal - PATIENT/CAREGIVER WILL VERBALIZE/DEMONSTRATE KNOWLEDGE AND MANAGEMENT OF COPD BY END OF EPISODE. Goal Provider Goal - PATIENT/CAREGIVER WILL VERBALIZE/DEMONSTRATE UNDERSTANDING OF S/S OF INFECTION AND INFECTION CONTROL MEASURES. SIGNS AND SYMPTOMS OF INFECTION WILL BE IDENTIFIED AND PHYSICIAN NOTIFIED FOR PROMPT INTERVENTION THROUGHOUT THE CERTIFICATION PERIOD. Goal Provider Goal - PATIENT WILL BE FREE FROM INFECTION AND PATIENT/CAREGIVER WILL VERBALIZE UNDERSTANDING OF SIGNS AND SYMPTOMS AND METHODS TO PREVENT SEPSIS BY END OF THE EPISODE. Goal Provider Goal - A PHYSICAL THERAPY EVALUATION TO BE COMPLETED WITH RECOMMENDATIONS AND/OR WRITTEN PLAN OF TREATMENT ESTABLISHED FOR PHYSICIANS SIGNATURE. Progress Notes Progress Notes <paragraph>[Visit Date: 2024 by GIL LORENZO RN]:</paragraph><paragraph>SOC COMPLETED TODAY WITH PT S/P RECENT HOPSITALIZATION AT [facility] REGARDING ONSET OF LEFT ORBITAL SHINGLES AND PRESEPTAL CELLULITIS. PREVIOUS TO THIS ADMISSION ON 12/16, PT WAS ADM TO [facility] FOR PNA AT THE BEGINNING ON THE MONTH. PT REFUSED REHAB BUT IS AGREEABLE TO START PHYSICAL THERAPY ORDERED WITH AGENCY. NEW ORDERS: DOXYCYCLINE, VALCYCLOVIR, OXYCODONE, PREGABALIN, AND LOVENOX D/T PT HAVING DX OF FACTOR 5 WITH HX OF STROKE AND ABNORMAL INR WHILE IN THE HOPSTIAL OF 1.7 WHEN PT WAS D/C'D AT HOSPTIAL RE PNA, ORDERED ALBUTEROL NEB HOWEVER PT NEVER REC'D- UPON ASSESSMENT LUNG SOUNDS HAVE SCATTERED RHONIC THROUGHOUT. NO PT NO ACUTE DISRESS. PCP OFFICE CALLED DURING VISIT TO REPORT THIS AND REQUEST INHALER. NURSING SPOKE TO [facility] AT PCP OFFICE. PENDING RETURN CALL. PT HAS SEVERAL CRUSTED LESIONS ON LEFT SIDE OF FACE, STARTING ALONG PTS UPPER EYE LID, EXTENDING TO CENTER OF FOREHEAD AND BY PTS HAIRLINE. NO ACTIVE DRAINAGE PRESENT. PT DENIES TRIGEMAL NERVE PAIN, BURNING, PINS/NEEDLES, ETC. PT JUST REPORTS LOSS OF SENSITIVITY W/ TOUCH AND HEADACHES. PT REPORTS COMPLIANCE WITH ALL MEDICATIONS ORDERED. PT CHECKED INR TODAY AND INR IS 1.7 PT DOES HAVE METER AND CHECKS INDEPENDENTLY AND REPORTS TO [facility] ([phone]) PT WILL RE-CHECK AGAIN THIS SATURDAY. PT NEEDS TO TAKE 0.7ML OF LOVENOX BID X 2 DAYS UNTIL INR IS WNL. PT HAS NO S/S OF DVT OR PE. 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 PT IS AOX4. VSS. PTS SPEECH IS CLEAR AND COMPREHENSIBLE. PT REPROTS AVG OF 4-5/10 PAIN. PT REPORTS TOOK LAST DOSE OF OXYCODONE THIS AM WHICH WAS HELPFUL. PT REPORTS HAVING HEADACHES WITH SHINGLES, BUT MEDICATION ALSO MANAGES WELL. PT IS PENDING APT WITH PCP- DISCUSSED DURING PHONE CALL WITH PCP OFFICE DURING SOC. PT ALSO NEEDS TO F/U WITH OPTHALMOLOGY. PT DENIES CHEST PAIN, CHEST TIGHTNESS, REPORTS OCCASIONAL RESIDUAL CLEAR COUGH, BUT USUALLY A DRY COUGH. PT DOES HAVE COPD BUT IS NOT CURRENTLY ON MAINTENANCE INHALER EITHER. PT ABLE TO REACH 1,500 VIA INCENTIVE SPIROMETER AND REPORTS DAILY COMPLIANCE. PT HAS +HR/RHYTHM. PT REPORTS ALST BM WAS YESTERDAY, BS+X4, NON TENDER, AND NON DISTENDED. PT DENIES BLOOD IN STOOLS AND BLACK TARRY STOOLS. PT DENIES HEAMTURIA, DYSURIA, AND POLYURIA. PT DOES TAKE WEEKLY OZEMPIC SHOT, WAS INCREASED FROM 0.5ML TO 1ML HOWEVER 0.5ML ON DISCHARGE PAPERS- PT TO CLARIFY ORDER WITH PCP. PT ON FOR WGT MGMT PT IS NOT A DIABETIC. PT HAS TRACE RLE EDEMA AND NO LLE EDEMA. PT AMBULATES WITH ABNORMAL GAIT D/T PRIOR BACK SX AND USES EITHER A CANE OR A WALKER. PT DENIES ANY RECENT FALLS OR INJURIES. PT JUST ORDERED HERSELF A ELEVATED TOILET SEAT. PT WEARING NON SKID FOOTWEAR. PT EDUCATED RE MEDICATIONS, POSSIBLE SIDE EFFECTS, AND WORSENING S/S OF CELLULITIS INFECTION AND SHINGLES. PT EDUCATED RE NERVE PAIN. PT EDUCATED RE S/S OF RESPIRATORY EXACERBATION, PENDING RESPONSE FROM PROVIDER, PT EDUCATED RE USE OF INCENTIVE SPIROMETER, DEEP BREATHING EXERCISES, S/S OF ABNORMAL INR, AND S/S OF DVT, PE, AND CVA. PT EDUCATED ON WHEN TO CALL [facility], PCP, AND 911.</paragraph> Encounters Start Date/Time End Date/Time Encounter Type Admission Type Attending [facility] Facility Care Department Encounter ID Discharge Date Discharge Status Discharge Condition Discharge Reason Percent Goals Met 2024-12-22 00:00:00 2025-02-19 00:00:00 Outpatient NEW ADMISSION GIL LORENZO [facility] [id number] 100.00
== END 2024-12-24 15:51 | disposition home or self-care (01) ==
LOC: HO.HMCH 12:34
PROVIDERS: PCP Internal Medicine; Visit Provider Internal Medicine
DX: I63.312 Cerebral infarction due to thrombosis of left middle cerebral artery (principal); B02.8 Zoster with other complications; D68.2 Hereditary deficiency of other clotting factors; L03.213 Periorbital cellulitis; B02.29 Other postherpetic nervous system involvement; I35.0 Nonrheumatic aortic (valve) stenosis; Z95.3 Presence of xenogenic heart valve; E78.2 Mixed hyperlipidemia; S22.070S Wedge compression fracture of T9-T10 vertebra, sequela; M51.362 Other intervertebral disc degeneration, lumbar region with discogenic back pain and lower extremity pain; E55.9 Vitamin D deficiency, unspecified; M19.91 Primary osteoarthritis, unspecified site

== ENCOUNTER → 2024-12-24 12:34 | Outpatient (BNVA) | payer MEDICARE, OTHER, SELFPAY | PROVIDERS: PCP Internal Medicine; Visit Provider Internal Medicine | DX: B02.8 Zoster with other complications (principal); L03.213 Periorbital cellulitis; B02.29 Other postherpetic nervous system involvement; I35.0 Nonrheumatic aortic (valve) stenosis; Z95.3 Presence of xenogenic heart valve; D68.2 Hereditary deficiency of other clotting factors; I63.312 Cerebral infarction due to thrombosis of left middle cerebral artery; E78.2 Mixed hyperlipidemia; S22.070S Wedge compression fracture of T9-T10 vertebra, sequela; M51.362 Other intervertebral disc degeneration, lumbar region with discogenic back pain and lower extremity pain; E55.9 Vitamin D deficiency, unspecified; M19.91 Primary osteoarthritis, unspecified site; F41.9 Anxiety disorder, unspecified; E66.9 Obesity, unspecified; Z68.34 Body mass index [BMI] 34.0-34.9, adult; F17.200 Nicotine dependence, unspecified, uncomplicated; Z71.6 Tobacco abuse counseling; Z71.3 Dietary counseling and surveillance | CPT/HCPCS: 96127 ==

== ENCOUNTER 2025-02-08 13:42 | Outpatient (AMB) | payer MEDICARE, OTHER, SELFPAY ==
[2025-02-08 13:45] VITALS: BP 118/78; PULSE 102; O2SAT 96; BMI 31.5
--- NOTE | 2025-02-08 13:45 | MHC.PC.OV ---
Vital Signs 02/08/25 13:45 Height 5 ft 10 in Weight 219 lb 6 oz BMI 31.5 BP 118/78 Blood Pressure Location Lt brachial Position Sitting Pulse 102 H Pulse Source Pulse Oximeter Pulse Oximetry (%) 96 Oxygen Delivery Method Room Air Intake Visit Reasons: annual exam Medicine Assistant Required: No Accompanied by: Self / Same As Patient Allergies pregabalin Adverse Reaction (Intermediate, Verified 03/25/25 14:23) nausea/vomiting gabapentin Adverse Reaction (Unknown, Verified 03/25/25 14:23) GI upset/nausea/vomiting Medication List - Last Reconciled 02/08/25 by Abdias Trotter MD acetaminophen 500 mg PO Q6H PRN 10 days albuterol sulfate 90 mcg/actuation (Ventolin HFA) 2 puffs inhalation Q6H PRN 30 days baclofen 20 mg PO TID PRN cholecalciferol (vitamin D3) 50 mcg PO DAILY 90 days docusate sodium (Colace Clear) PO furosemide 20 mg PO QAM PRN lorazepam 0.5 mg PO Q8H PRN 30 days polyethylene glycol 3350 (Miralax) PO prothrombin time test strips (Coaguchek PT strips) As directed- Twice weekly checking rosuvastatin 20 mg PO DAILY semaglutide 1 mg (0.75 mL) subcut QWEEK 4 weeks trazodone 50 mg PO BEDTIME PRN [VITAMIN B 12 PO] [VITAMIN B 6 TAB PO] warfarin 7.5 mg See Protocol PO DAILY Tobacco use date assessed: 02/08/25 Fall risk assessment: No Falls in past year Last assessed Fall Risk: 02/08/25 Dental Screening Dental Screen Date: 02/08/25 Did you have a dental visit in the last 12 months?: No Did you have a dental problem in the last 6 months where you did not have access to dental care?: No Was dental information given to patient?: Patient has dentist HPI annual exam HPI Details Patient comes in today for her annual physical examination States that she was initially admitted to the hospital back in early December 2024 for pneumonia and was readmitted about a week later for shingles with some complications - recalls that she was experiencing increased nausea/vomiting and anorexia at the time States that she also developed some cellulitis around her left eye then and is currently still experiencing some sensitivity around her eye at this time States that she was recently prescribed some erythromycin eye ointment but she had to discontinue using this due to increased tearing of her eye while she was on the antibiotics She is currently still undergoing physical therapy for her low back pain and sciatica, and still experiences increased pain and discomfort over her lower back with prolonged standing She denies any dizziness; still has occasional headaches on the left side Denies any chest pains, no increased shortness of breath No nausea/vomiting, no abdominal pain lately No change in bowel habits noted She denies any acute urinary symptoms Needs a few of her Rx refilled She has no follow-up labs done recently She has never had a screening colonoscopy done in the past but did a Cologuard testing back in April 2022 that came out negative and she will be due for repeat Cologuard in 3 years (04/2025) She has not had an annual mammogram done since 2016 and declines further screening at this time She also declined to go for any further yearly gynecology exam or Pap smear Her bone density scan was last done in April 2023 As for her immunizations, have advised her to get her shingles vaccine in a couple of months; patient is also currently considering getting another COVID booster and states that she will be getting her flu, pneumonia and possibly RSV vaccine sometime over the next few weeks [facility] Medical History Osteoarthritis Vitamin D deficiency Smoker Mitral valve annular calcification Obesity (BMI 30-39.9) Anxiety Mixed hyperlipidemia Factor V deficiency Lumbar degenerative disc disease Cerebrovascular accident (CVA) due to thrombosis of left middle cerebral artery Nonrheumatic aortic (valve) stenosis Surgical History History of CVA (cerebrovascular accident) Aortic valve replaced History of cardiac catheterization Family History Father No problems noted. 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 1. Little interest or pleasure in doing things: not at all 2. Feeling down, depressed, or hopeless: not at all 3. Trouble falling or staying asleep, or sleeping too much: not at all 4. Feeling tired or having little energy: not at all 5. Poor appetite or overeating: not at all 6. Feeling bad about yourself - or that you are a failure or have let yourself or your family down: not at all 7. Trouble concentrating on things, such as reading the newspaper or watching television: not at all 8. Moving or speaking so slowly that other people could have noticed. Or the opposite - being so fidgety or restless that you have been moving around a lot more than usual: not at all 9. Thoughts that you would be better off or of hurting yourself in some way: not at all Total score: 0 Depression Screening Interpretation: Negative Depression Screening Done: Yes 45410 - PHQ-9 Billing: Yes Source: Developed by Drs. Dave Nelson, Rosa Scherer, Alex Mandujano and colleagues, with an educational melissa from [employer]. Thrive Questionnaire Date Thrive assessed: 02/08/25 I am a: Patient What is your living situation today?: I have a steady place to live Within the past 12 months, did the food you bought not last and you didn't have the money to get more?: I choose not to answer this question Within the past 12 months, did you worry whether your food would run out before you got money to buy more?: I choose not to answer this question Do you have trouble paying for medicines?: I choose not to answer this question Do you have trouble getting transportation to medical appointments?: I choose not to answer this question Do you have trouble paying your heating and electricity bill?: I choose not to answer this question Do you have trouble taking care of your child, family member or friend?: I choose not to answer this question Do you have trouble with day-to-day activities such as bathing, preparing meals, shopping, managing finances, etc.?: I choose not to answer this question Are you currently unemployed and looking for a job?: I choose not to answer this question Are you interested in more education?: I choose not to answer this question Please select the resources that you would like help with: None Currently or been in a relationship where the following occur: No concerns reported THRIVE Score: 0 AUDIT C Alcohol Use Questionnaire (AUDIT-C) 1. How often do you have a drink containing alcohol?: Never 3. How often do you have six or more drinks on one occasion?: Never Total Score: 0 Score Reviewed/Action Taken: Yes JULIO CESAR-7 AMB Questionnaire JULIO CESAR-7 Date JULIO CESAR - 7 assessed: 02/08/25 Feeling nervous, anxious, or on edge: 0 = Not at all Not being able to stop or control worryin = Not at all Worrying too much about different things: 0 = Not at all Trouble relaxin = Not at all Being so restless that it is hard to sit still: 0 = Not at all Becoming easily annoyed or irritable: 0 = Not at all Feeling afraid as if something awful might happen: 0 = Not at all Total JULIO CESAR-7 score (0-4 normal; 5-9 mild; 10-14 moderate; 15-21 severe): 0 Source: Developed by Drs. Dave Nelson, Rosa Scherer, Alex Mandujano and colleagues, with an educational melissa from [employer]. JULIO CESAR-7 Assessment Billing JULIO CESAR-7 Assessment Tool: JULIO CESAR-7 Assessment 31529 Review of Systems Const Denies chills, Reports difficulty sleeping (partly due to increased pain), Reports fatigue, Denies fever(s) and Reports headache(s) (on and off on the left side) Eyes Details: (+) mild pain around the left eye, with some swelling and residual shingles lesions around the eye and over the left side of the forehead Reports blurry vision (on and off in the left eye - due to cataract) and Denies itchy eyes ENT Denies dysphagia, Denies dizziness, Denies otalgia, Reports headache(s) (on and off on the left side), Denies neck pain, Denies odynophagia and Denies sore throat Card Denies chest pain, Denies rapid heart rate, Denies palpitations and Reports dyspnea on exertion Resp Denies chest congestion, Denies cough, Reports dyspnea on exertion and Denies wheezing GI Denies abdominal pain, Denies constipation, Denies dysphagia, Denies heartburn, Denies diarrhea, Denies nausea, Denies odynophagia and Denies vomiting Denies difficulty voiding, Denies nocturia, Denies dysuria and Denies urinary urgency Musc Reports back pain (increased ), Reports arthralgias (right knee, on and off), Reports joint swelling (right knee, on and off), Denies neck pain and Reports radiating pain into limb (into both legs) Skin/Breast Denies rash Neuro Denies dizziness and Reports headache(s) (on and off on the left side) Psych Reports anxiety and Denies depression Endo Reports fatigue and Denies palpitations [place]isco/Lymph Denies easy bruising Aller/Immun Denies itchy eyes and Denies wheezing Physical exam (Primary Care) Vital Signs: Last Vital Signs Pulse 102 H 02/08/25 13:45 BP 118/78 02/08/25 13:45 Pulse Ox 96 02/08/25 13:45 Oxygen Delivery Method Room Air 02/08/25 13:45 BMI result Body Mass Index 31.5 Tobacco/Smoking Status: Tobacco use Status Tobacco use date assessed 02/08/25 02/08/25 13:53 Patient Tobacco Use Status Current everyday Tobacco 02/08/25 13:53 e-Cigarette/Vaping Use Never Used 02/08/25 13:53 PHQ-9: PHQ-9 Score PHQ-9: Total score 0 04/04/25 09:27 Depression Screening Interpretation: Negative Thrive Assessment: Date of Thrive Assessment Date Thrive assessed 02/08/25 02/08/25 13:53 Currently or been in a relationship where the following occur: No concerns reported Const General: no acute distress, alert, awake and tired appearing Orientation/consciousness: patient oriented x3 HENMT Head: Yes normocephalic and Yes atraumatic Ears: external ears normal, TM's normal bilaterally and EAC's normal General nose exam: No nasal discharge present Face and sinus: Yes normal facial exam and Yes sinuses nontender Teeth and gingiva: dentition normal Throat: Yes posterior oropharynx normal and Yes tonsils normal (no TP congestion) Eyes Other: (+) few scattered residual scars noted over the left periorbital area Eyelids: Yes eyelids normal Conjunctivae: conjunctivae normal Pupils: Equal, round and reactive pupils present EOM: EOMs intact bilaterally Neck Neck: Yes supple and No lymphadenopathy Thyroid: Thyroid normal Resp Auscultation: clear to auscultation bilaterally, no rales and no wheezes Cardio Rate: regular rate Rhythm: regular rhythm Heart sounds: no murmurs GI Palpation (GI): Soft to palpation, nontender and No hepatosplenomegaly present Auscultation: normal bowel sounds General: Yes no CVA tenderness Back/Spine/Pelvis Back: no CVA tenderness Thoracic/Lumbar Spine: lumbar spinal tenderness Skin Lesions: no lesions Rashes: no rashes Neuro General: patient oriented x3, moves all extremities, no focal motor deficits and CN's II-XI intact bilaterally Cranial nerves: Yes Equal, round and reactive pupils present Cognition (Neuro): normal cognition Gait exam (Neuro): Normal gait present Extrem General: Yes no clubbing, cyanosis or edema Coding Level of Care Code Est Pt Prev Care >65y(96585) Diagnoses Annual physical exam Z00.00 Postherpetic neuralgia B02.29 Nonrheumatic aortic (valve) stenosis I35.0 Status post transcatheter aortic valve replacement (TAVR) using bioprosthesis Z95.3 Factor V deficiency D68.2 Cerebrovascular accident (CVA) due to thrombosis of left middle cerebral artery I63.312 Mixed hyperlipidemia E78.2 Compression fracture of T9 vertebra, sequela S22.070S Encounter type: sequela Lumbar degenerative disc disease M51.36 Vitamin D deficiency E55.9 Primary osteoarthritis, unspecified site M19.91 Osteoarthritis location: unspecified site Osteoarthritis type: primary Anxiety F41.9 Smoker F17.200 Obesity (BMI 30-39.9) E66.9 Additional Codes JULIO CESAR-7 Assessment Billing - JULIO CESAR-7 Assessment Tool: JULIO CESAR-7 Assessment 36892 ([id number]) PHQ-9 - 71354 - PHQ-9 Billing: Yes ([id number]) Assessment & Plan Assessment & Plan (1) Annual physical exam: Code(s): Z00.00 - Encounter for general adult medical examination without abnormal findings Category: Medical Plan: Check labs KELTON - she is instructed to try getting her previously ordered labs done KELTON to update and complete her exam today She has never had a screening colonoscopy done in the past but did a Cologuard testing back in April 2022 that came out negative and she will be due for repeat Cologuard in 3 years (04/2025) She has not had an annual mammogram done since 2017 and declines further screening at this time She also declined to go for any further yearly gynecology exam or Pap smear Her bone density scan was last done in April 2023 (2) Postherpetic neuralgia: Code(s): B02.29 - Other postherpetic nervous system involvement Category: Medical Plan: Patient has not been able to tolerate both Gabapentin and Pregabalin due to side effects She was prescribed some Oxycodone 5 mg Q 6 hours PRN for severe pain (3) Nonrheumatic aortic (valve) stenosis: Code(s): I35.0 - Nonrheumatic aortic (valve) stenosis Category: Medical Plan: S/P TAVR at [facility] in [place] on 11/27/2018, with significant improvement of her cardiac symptoms since Cardiac catheterization done at [facility] prior to her TAVR came out normal Her most recent echocardiogram done in January 2024 revealed severe mitral annular calcification with possible calcific mitral stenosis. The left ventricular systolic function is normal. The calculated ejection fraction is 55 to 60% by biplane method. A bioprosthetic aortic valve is present. The prosthetic a aortic valve appears to be functioning normally Follow up with cardiology as scheduled for continuing management /surveillance (4) Status post transcatheter aortic valve replacement (TAVR) using bioprosthesis: Comment: surgery done at [facility] in [place] in 11/2018 Code(s): Z95.3 - Presence of xenogenic heart valve Category: Surgical Plan: Follow up with cardiology as scheduled (5) Factor V deficiency: Code(s): 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 Category: Medical Plan: Continue Coumadin 10 mg QD as instructed per PT/INR results (6) Cerebrovascular accident (CVA) due to thrombosis of left middle cerebral artery: Code(s): I63.312 - Cerebral infarction due to thrombosis of left middle cerebral artery Category: Medical Plan: S/P tPA and IR thrombectomy at [facility] in 11/2018 with very little residual neurologic deficit Follow-up with Neurology as scheduled (7) Mixed hyperlipidemia: Code(s): E78.2 - Mixed hyperlipidemia Category: Medical Plan: Reinforced low cholesterol diet Continue Rosuvastatin 20 mg QD Will recheck her labs and fasting lipids KELTON for follow up (8) Compression fracture of T9 vertebra: Code(s): S22.070A - Wedge compression fracture of T9-T10 vertebra, initial encounter for closed fracture Category: Medical Qualifiers: Encounter type: sequela Qualified Code(s): S22.070S - Wedge compression fracture of T9-T10 vertebra, sequela Plan: CTA of the chest done in February 2023 revealed (+) T9 vertebral compression fracture Patient has completed PT/OT/short term rehab with [facility] She continues to struggle with pain over her mid to lower back but states that she has been managing her pain Continue Tramadol 50 mg TID PRN and Cyclobenzaprine 5 mg TID PRN for pain (9) Lumbar degenerative disc disease: Code(s): M51.36 - Other intervertebral disc degeneration, lumbar region Category: Medical Plan: Reinforced activity and weight lifting restrictions Continue Cyclobenzaprine 5 mg TID as needed (10) Vitamin D deficiency: Code(s): E55.9 - Vitamin D deficiency, unspecified Category: Medical Plan: Continue Vitamin D3 2000 units QD (11) Osteoarthritis: Comment: Involving multiple joints Code(s): M19.90 - Unspecified osteoarthritis, unspecified site Category: Medical Qualifiers: Osteoarthritis location: unspecified site Osteoarthritis type: primary Qualified Code(s): M19.91 - Primary osteoarthritis, unspecified site Plan: Knee x-rays done back in March 2022 revealed (+) OA changes bilaterally, worse in the right knee She was seen by orthopedics and offered cortisone injection but patient declined; she was advised then to just call them if she changes her mind about getting cortisone injections Follow up with orthopedics as scheduled/as needed (12) Anxiety: Code(s): F41.9 - Anxiety disorder, unspecified Category: Medical Plan: Continue Lorazepam 0.5 mg every 8 hours as needed (13) Smoker: Code(s): F17.200 - Nicotine dependence, unspecified, uncomplicated Category: Social Hx Plan: Patient is counseled again on complete smoking cessation (14) Obesity (BMI 30-39.9): Code(s): E66.9 - Obesity, unspecified Category: Medical Plan: Reinforced diet; exercise and weight loss are limited and not realistic at this time due to her current back and ongoing joint issues Continue Seamglutide 1 mg SQ once a week Plan Follow up in 4 months Orders: Orders Hemoglobin A1c 02/08/25 R73.9 - Hyperglycemia, unspecified, Z00.00 - Encounter for general adult medical examination without abnormal findings Medications: New pyridoxine (vitamin B6) 500 mg PO DAILY 90 tabs 3RF 90 days mecobalamin (vitamin B12) 1,000 mcg PO DAILY 90 tabs 3RF 90 days polyethylene glycol 3350 (Miralax) 17 grams PO DAILY 510 grams 5RF 30 days Refilled lorazepam 0.5 mg PO Q8H PRN 90 tabs 1RF anxiety 30 days semaglutide for 4 weeks 1 mg (0.75 mL) subcut QWEEK 3 mL 0RF 4 weeks E66.9 - Obesity, unspecified
--- OUTSIDE RECORDS SUMMARY | 2025-02-08 15:57 | XMS_ITS | Clinical Summary ---
Author Organization [address] [facility] Address [address] [place] [address] Phone Care Team Providers Care Embedded Linux Engineer Name Role Phone Gabriele Thmoas MD Primary Care Provider +1- [phone] Encounters Date Type Department Care Team Description 12/14/[address] [facility] Lab [address] [place] [address] Gabriele Thomas MD Anemia, unspecified; Unspecified atrial fibrillation ([facility] V24, [facility] V28); Type 2 diabetes mellitus without complications ([facility] V24, [facility] V28) 12/11/[address] [facility] [address] [place] [address] Gabriele Thomas MD Unspecified atrial fibrillation ([facility] V24, [facility] V28); Anemia, unspecified from Last 3 Months Social History Tobacco Use Types Packs/Day Years Used Date Smoking Tobacco: Never Assessed Comments Unknown Sex and Gender Information Value Date Recorded Sex Assigned at Not on file Legal Sex Female 12:27 AM EST Gender Identity Not on file Sexual Orientation Not on file Plan of Treatment Health Maintenance Due Date Last Done Comments Breast Cancer Screening 1957 Diabetes: Annual GFR (Glomer ular Filtration Rate) 1957 Diabetes: Annual Foot Exam 1967 Diabetes: Annual Retina Eye Exam 1967 DTaP,Tdap,and Td Vaccines (1 - Tdap) 1976 Pneumococcal Vaccine: 50+ Ye ars (1 of 2 - PCV) 1976 Zoster Vaccines (1 of 2) 2007 Depression Screening 06/03/2024 Cholesterol Screening (Lipid Panel) 12/11/2024 Colorectal Cancer Screening: Colonoscopy 12/11/2024 Falls Risk Assessment 12/11/2024 Hepatitis C Screening 12/11/2024 Medicare Annual Wellness Visit 12/11/2024 Osteoporosis Screening (Bone Density Screening) 12/11/2024 Social Influencers of Health Screening 12/11/2024 Diabetes: Annual Urine Albumin-Creatinine Ratio (uACR) 12/14/2024 Diabetes: Blood Sugar Contro l Test (HGBA1C) 12/14/2024 COVID-19 Vaccine ( - 2023-2 5 season) 2025 Influenza Vaccine (#1) 2025 RSV Immunization Adult Patie nts (1 - 1-dose 75+ series) 2032 HIB Vaccines Aged Out No longer eligi ble based on patient's age to complete this topic HPV Vaccines Aged Out No longer eligi ble based on patient's age to complete this topic Hepatitis A Vaccines Aged Out No long er eligible based on patient's age to complete this topic Hepatitis B Vaccines Aged Out No long er eligible based on patient's age to complete this topic IPV Vaccines Aged Out No longer eligi ble based on patient's age to complete this topic MMR Vaccines Aged Out No longer eligi ble based on patient's age to complete this topic Meningococcal ACWY Vaccine Aged Out N o longer eligible based on patient's age to complete this topic Meningococcal B Vaccine Aged Out No l onger eligible based on patient's age to complete this topic RSV Immunization Patients Un ibeth 20 months Aged Out No longer eligible b ased on patient's age to complete this topic Varicella Vaccines Aged Out No longer eligible based on patient's age to complete this topic Procedures Procedure Name Priority Date/Time Associated Diagnosis Comments PROTHROMBIN TIME WITH INR Routine 12/11/2024 8:24 AM EDT Unspecified atrial fibrillation (CMS/HCC V24, CMS/HCC V28) Anemia, unspecified from Last 3 Months Results * (ABNORMAL) Prothrombin time with INR (12/11/2024 8:24 AM EDT) Protime 29.5(H) 10.6 - 13.9 sec LAB COAGULATION METHOD 12/11/2024 11:45 AM EDT [facility] INR 2.4 LAB COAGULATION METHOD 12/11/2024 11:45 AM EDT [facility] Blood Venous blood specimen / Unknown Venipuncture / Unknown 12/11/2024 8:24 AM EDT 12/11/2024 10:38 AM EDT aGbriele Thomas MD LAB BLOOD ORDERABLES Final Result [facility] ([facility]) [facility] [address] [place] [address], from Last 3 Months Insurance MEDICARE [facility] [address] [place] [address] Care Teams Embedded Linux Engineer Relationship Specialty Start Date End Date Gabriele Thomas MD [address] [place] [address] PCP - General Internal Medicine 12/11/24
--- OUTSIDE RECORDS SUMMARY | 2025-02-08 15:57 | XMS_ITS | Encounter Summary ---
Author Organization [facility] Address [address] [place] [address] Care Team Providers Care Slot Shift Supervisor Name Role Phone Gabriele Thomas MD Primary Care Provider +1- [phone] Encounter Details Date Type Department Care Team (Late st Contact Info) Description 12/14/2024 Lab Requisition [facility] - Main Lab [address] [facility] [address] [place] [address] Gabriele Thomas MD [address] [place] [address] [phone] Anemia, unspecified; Unspecified atrial fibrillation (CMS/HCC V24, [...] V28) documented in this encounter Care Teams Slot Shift Supervisor Relationship Specialty Start Date End Date Gabriele Thomas MD [address] [place] [address] [phone] PCP - General Internal Medicine 12/11/24 documented as of this encounter
--- OUTSIDE RECORDS SUMMARY | 2025-02-08 15:57 | XMS_ITS | Encounter Summary ---
Author Organization [facility] Address [address] [place] [address] Care Team Providers Care Client Care Consultant Name Role Phone Gabriele Thomas MD Primary Care Provider +1- [phone] Encounter Details Date Type Department Care Team (Late st Contact Info) Description 12/11/2024 Lab Requisition [facility] - Main Lab [address] [facility] [place] [address] Gabriele Thomas MD [address] [place] [address] Unspecified atrial fibrillation (CMS/HCC V24, CMS/HCC V28); Anemia, unspecified Social History Tobacco Use Types Packs/Day Years Used Date Smoking Tobacco: Never Assessed Comments Unknown Sex and Gender Information Value Date Recorded Sex Assigned at Not on file Legal Sex Female 12:27 AM EST Gender Identity Not on file Sexual Orientation Not on file documented as of this encounter Plan of Treatment Not on file documented as of this encounter Procedures Procedure Name Priority Date/Time Associated Diagnosis Comments PROTHROMBIN TIME WITH INR Routine 12/11/2024 8:24 AM EDT Unspecified atrial fibrillation (CMS/HCC V24, CMS/HCC V28) Anemia, unspecified documented in this encounter Results * (ABNORMAL) Prothrombin time with INR (12/11/2024 8:24 AM EDT) Protime 29.5(H) 10.6 - 13.9 sec LAB COAGULATION METHOD 12/11/2024 11:45 AM [facility] LAB INR 2.4 LAB COAGULATION METHOD 12/11/2024 11:45 AM [facility] LAB Blood Venous blood specimen / Unknown Venipuncture / Unknown 12/11/2024 8:24 AM EDT 12/11/2024 10:38 AM EDT Gabriele Thomas MD LAB BLOOD ORDERABLES Final Result [facility] [address] [place] [address], documented in this encounter Visit Diagnoses Diagnosis Unspecified atrial fibrillation (CMS/HCC V24, CMS/HCC V28) Anemia, unspecified documented in this encounter Care Teams Client Care Consultant Relationship Specialty Start Date End Date Gabriele Thomas MD [address] [place] [id number] PCP - General Internal Medicine 12/11/24 documented as of this encounter
== END 2025-02-08 15:06 | disposition home or self-care (01) ==
LOC: HO.HMCH 13:43
PROVIDERS: PCP Internal Medicine; Visit Provider Internal Medicine
DX: Z00.00 Encounter for general adult medical examination without abnormal findings (principal); D68.2 Hereditary deficiency of other clotting factors; I63.312 Cerebral infarction due to thrombosis of left middle cerebral artery; B02.29 Other postherpetic nervous system involvement; I35.0 Nonrheumatic aortic (valve) stenosis; Z95.3 Presence of xenogenic heart valve; E78.2 Mixed hyperlipidemia; S22.070S Wedge compression fracture of T9-T10 vertebra, sequela; M51.369 Other intervertebral disc degeneration, lumbar region without mention of lumbar back pain or lower extremity pain; E55.9 Vitamin D deficiency, unspecified; M19.91 Primary osteoarthritis, unspecified site; F41.9 Anxiety disorder, unspecified

== ENCOUNTER → 2025-02-08 13:42 | Outpatient (BNVA) | payer MEDICARE, OTHER, SELFPAY | PROVIDERS: PCP Internal Medicine; Visit Provider Internal Medicine | DX: Z00.00 Encounter for general adult medical examination without abnormal findings (principal); B02.29 Other postherpetic nervous system involvement; I35.0 Nonrheumatic aortic (valve) stenosis; E78.2 Mixed hyperlipidemia; M51.369 Other intervertebral disc degeneration, lumbar region without mention of lumbar back pain or lower extremity pain; E55.9 Vitamin D deficiency, unspecified; M19.91 Primary osteoarthritis, unspecified site; F41.9 Anxiety disorder, unspecified; E66.9 Obesity, unspecified; F17.200 Nicotine dependence, unspecified, uncomplicated; I26.99 Other pulmonary embolism without acute cor pulmonale; S22.070D Wedge compression fracture of T9-T10 vertebra, subsequent encounter for fracture with routine healing; X58.XXXD Exposure to other specified factors, subsequent encounter; Z51.81 Encounter for therapeutic drug level monitoring; Z79.01 Long term (current) use of anticoagulants; Z95.3 Presence of xenogenic heart valve; Z86.73 Personal history of transient ischemic attack (TIA), and cerebral infarction without residual deficits; Z68.31 Body mass index [BMI] 31.0-31.9, adult | CPT/HCPCS: 85610; 96127; 99211; 99212; 99397 ==

== ENCOUNTER 2025-02-08 15:15 | Outpatient (AMB) | payer MEDICARE, OTHER, SELFPAY ==
[2025-02-08 15:27] LABS: Prothrombin Time Whole Bld POC 33.2 sec (11.1-13.5); ~PT, ~INR - Anti Coag Clinic 2.8 (0.9-1.1)
--- NOTE | 2025-02-08 15:34 | MHC.OFFVISCO ---
Intake Intake Visit Reasons: Anticoagulation Allergies pregabalin Adverse Reaction (Intermediate, Verified 02/08/25 15:16) nausea/vomiting gabapentin Adverse Reaction (Unknown, Verified 02/08/25 15:16) GI upset/nausea/vomiting Medication List - Last Reconciled 02/08/25 by Anabelle Vaughn RN acetaminophen 500 mg PO Q6H PRN 10 days albuterol sulfate 90 mcg/actuation (Ventolin HFA) 2 puffs inhalation Q6H PRN 30 days baclofen 20 mg PO TID PRN cholecalciferol (vitamin D3) 50 mcg PO DAILY 90 days docusate sodium (Colace Clear) PO furosemide 20 mg PO QAM PRN lorazepam 0.5 mg PO Q8H PRN 30 days mecobalamin (vitamin B12) 1,000 mcg PO DAILY 90 days polyethylene glycol 3350 (Miralax) 17 grams PO DAILY 30 days prothrombin time test strips (Protein Barguchek PT strips) As directed- Twice weekly checking pyridoxine (vitamin B6) 500 mg PO DAILY 90 days rosuvastatin 20 mg PO DAILY semaglutide 1 mg (0.75 mL) subcut QWEEK 4 weeks trazodone 50 mg PO BEDTIME PRN warfarin 7.5 mg See Protocol PO DAILY Nursing Note Pt came with kike via wheel chair *meter to meter demonstration with proficient POC skills, and accurate INR hx *still recovering from post shingle neuralgia pain *appetite is fair but now most likely r/t to the wanted affects of semaglutide that she has resumed * to have several vaccines before april 2025- shingle, covid, flu, pneumonia and rsv vaccines INR? 2.8 ACS POC INR 2.7 patient meter POC INR in therapeutic range No signs and symptoms of bleeding or bruising or clotting Keep same dosing for now 2.5mg x 2days/ 5mg x 5 days Retest again this week 02/11/2025 Anti-Coag Initial Assessment Social Hx Patient Tobacco Use Status: Current everyday Tobacco user alcohol intake: never Questionnaires HAS-BLED Does the patient had uncontrolled Hypertension?: No Does the patient have renal disease?: No Does the patient have liver disease?: No Does the patient have a history of stroke?: Yes Has the patient had major bleeding or predisposition to bleeding?: Yes Does the patient have labile INRs?: Yes Is the patient over 65 years of age?: Yes Is the patient on medications that gives them a predisposition to bleeding?: Yes Does the patient use alcohol?: Yes HAS-BLED Score: 6 CHADSVASC Age: 66-74 Gender: Female Does the patient have a history of CHF?: Yes Does the patient have a history of Hypertension?: No Does the patient have a history of Stroke/TIA/Thromboembolism?: Yes Does the patient have a history of Vascular Disease (prior UT, PAD or aortic plaque)?: Yes Does the patient have a history of Diabetes?: No CHADS VACS Score: 6 Leeann Prediction Score Rsk VTE Active Cancer: No Previous VTE, excluding superficial vein thrombosis: Yes Reduced mobility: No Already known Thrombophilic Condition: Yes (factor V) With-in last month Trauma and/or Surgery: No Elderly 70 year or older: No Heart and/or Respiratory Failure: No Acute Myocardial infarction and/or Ischemic Stroke: Yes Acute Infection and/or Rheumatologic Disorder: No Obesity (BMI 30 or greater): Yes Ongoing Hormonal Treatment: No Score: 8 Leeann Score less than 4; Low Risk of VTE Leeann Score 4 or greater; High Risk of VTE Coding Level of Care Code Est Patient Level 2 Diagnoses Current use of anticoagulant therapy Z79.01 Time Spent (min) 30 Assessment & Plan Assessment & Plan (1) Current use of anticoagulant therapy: Code(s): Z79.01 - senior care (current) use of anticoagulants Category: Medical
== END 2025-02-08 15:46 | disposition home or self-care (01) ==
LOC: HO.ACS 15:15
PROVIDERS: PCP Internal Medicine; Visit Provider Internal Medicine Medical Oncology
DX: Z79.01 Long term (current) use of anticoagulants (principal)